=== PATIENT | female | born 1995 | race Caucasian/White ===

== ENCOUNTER → 2022-08-20 | Outpatient (CLI) | payer OTHER, SELFPAY | END | disposition home or self-care (01) | LOC: LABSPEC 16:54 | PROVIDERS: PCP Family Medicine; Referring Provider Obstetrics & Gynecology; Visit Provider Obstetrics & Gynecology | DX: R30.0 Dysuria (principal) | CPT/HCPCS: 87086; 87088 ==

== ENCOUNTER → 2024-02-04 | Outpatient (CLI) | payer OTHER, SELFPAY ==
[2024-02-04 15:10] LABS: Absolute Lymphocyte Count 2.23 X10^3/uL (0.83-4.51); Absolute Neutrophil Count 7.2 X10^3/uL (2.0-7.7); Basophil# 0.04 X10^3/uL; Basophil% 0.4 % (0-1); Eosinophil# 0.39 X10^3/uL; Eosinophils% 3.6 % (0-5); Hemoglobin 14.3 g/dL (12.0-15.0); Lymphocyte # 2.23 X10^3/ul (0.83-4.51); Lymphocyte % 20.6 % (19-41); Mean Corp Hgb Conc 33.3 g/dL (32-36); Mean Corpuscular Hgb 28.8 pg (27.0-32.0); Mean Corpuscular Volume 86.5 fL (81-99); Mean Platelet Vol. 9.2 fl (6.2-12.0); Monocyte# 0.92 X10^3/uL; Monocyte% 8.5 % (0-10); NRBC Flagged by Analyzer 0 % (0-5); Neutrophil # 7.23 X10^3/uL (2.7-7.7); Neutrophil % 66.5 % (47-70); Platelet Count 374 K/mm3 (150-450); RBC Distribution Width CV 12.9 % (11.6-14.6); RBC Distribution Width SD 40.1 fl (35.1-43.9); Red Blood Count 4.97 M/mm3 (4.2-5.4); White Blood Count 10.9 K/mm3 (4.4-11.0)
[2024-02-04 15:56] LABS: HIV - WCH Non-Reactive (Nonreactive); Hepatitis B Surface Antigen Non-Reactive (Nonreactive); Hepatitis C Antibody Non-Reactive (Nonreactive); Rubella IgG Reactive (Nonreactive); Syphilis Antibodies Non-reactive
[2024-02-07 20:08] LABS: Chlamydia By Nucleic Acid AMP Negative (Negative); Gonococcus By Nucleic Acid AMP Negative (Negative)
== END | disposition home or self-care (01) ==
PROVIDERS: PCP Family Medicine; Referring Provider Obstetrics & Gynecology; Visit Provider Obstetrics & Gynecology
DX: Z34.90 Encounter for supervision of normal pregnancy, unspecified, unspecified trimester (principal)
CPT/HCPCS: 36415; 85025; 86703; 86762; 86780; 86803; 86850; 86900; 86901; 87086; 87088; 87340; 87491; 87591

== ENCOUNTER → 2024-06-22 | Outpatient (CLI) | payer OTHER, SELFPAY ==
[2024-06-22 17:04] LABS: Absolute Lymphocyte Count 1.71 X10^3/uL (0.83-4.51); Absolute Neutrophil Count 7.2 X10^3/uL (2.0-7.7); Basophil# 0.03 X10^3/uL; Basophil% 0.3 % (0-1); Eosinophil# 0.14 X10^3/uL; Eosinophils% 1.4 % (0-5); Hematocrit 36.2 % (37-47); Hemoglobin 12.1 g/dL (12.0-15.0); Lymphocyte # 1.71 X10^3/ul (0.83-4.51); Lymphocyte % 17.1 % (19-41); Mean Corp Hgb Conc 33.4 g/dL (32-36); Mean Corpuscular Hgb 29.5 pg (27.0-32.0); Mean Corpuscular Volume 88.3 fL (81-99); Mean Platelet Vol. 9.7 fl (6.2-12.0); Monocyte# 0.87 X10^3/uL; Monocyte% 8.7 % (0-10); NRBC Flagged by Analyzer 0 % (0-5); Neutrophil # 7.19 X10^3/uL (2.7-7.7); Neutrophil % 71.9 % (47-70); Platelet Count 245 K/mm3 (150-450); RBC Distribution Width CV 13.9 % (11.6-14.6); RBC Distribution Width SD 44.8 fl (35.1-43.9)
[2024-06-22 18:40] LABS: Glucose Challenge Gest 1H 50g 116 mg/dL (70-140); HIV Nonreactive (Nonreactive)
[2024-06-22 19:34] LABS: Syphilis Antibodies Nonreactive (Nonreactive)
== END | disposition home or self-care (01) ==
LOC: BWCLAB 13:30
PROVIDERS: PCP Family Medicine; Referring Provider Obstetrics & Gynecology; Visit Provider Obstetrics & Gynecology
DX: Z34.02 Encounter for supervision of normal first pregnancy, second trimester (principal)
CPT/HCPCS: 36415; 82950; 85025; 86703; 86780

== ENCOUNTER → 2024-08-14 | Outpatient (CLI) | payer OTHER, SELFPAY | END | disposition home or self-care (01) | LOC: LABSPEC 16:31 | PROVIDERS: PCP Family Medicine; Referring Provider Obstetrics & Gynecology; Visit Provider Obstetrics & Gynecology | DX: Z34.02 Encounter for supervision of normal first pregnancy, second trimester (principal) | CPT/HCPCS: 87081 ==

== ENCOUNTER → 2024-08-25 | Outpatient (CLI) | payer OTHER, SELFPAY | END | disposition home or self-care (01) | LOC: LABSPEC 15:41 | PROVIDERS: PCP Family Medicine; Referring Provider Obstetrics & Gynecology; Visit Provider Obstetrics & Gynecology | DX: Z12.4 Encounter for screening for malignant neoplasm of cervix (principal); N89.8 Other specified noninflammatory disorders of vagina | CPT/HCPCS: 87070; 87205 ==

== ENCOUNTER 2024-09-07 04:59 | Inpatient (IN) | payer OTHER, SELFPAY ==
[2024-09-07] VITALS (68 sets, daily range): BP systolic 94–138; BP diastolic 51–101; PULSE 72–130; RESP 16–18; TEMP 36.2–39; O2SAT 98–100; BMI 36.1
[2024-09-07 04:32] LABS: ROM Internal Control Test YES-OK TO RESULT pt. (Internal QC)
[2024-09-07 04:33] LABS: ROM Patient Test POSITIVE (Negative)
[2024-09-07 05:27] LABS: Absolute Neutrophil Count 7.2 X10^3/uL (2.0-7.7); Basophil# 0.03 X10^3/uL; Basophil% 0.3 % (0-1); Eosinophil# 0.14 X10^3/uL; Eosinophils% 1.3 % (0-5); Hematocrit 36.4 % (37-47); Lymphocyte % 20.7 % (19-41); Mean Corpuscular Hgb 27.4 pg (27.0-32.0); Mean Corpuscular Volume 83.1 fL (81-99); Mean Platelet Vol. 11.1 fl (6.2-12.0); Monocyte# 0.98 X10^3/uL; Monocyte% 9.2 % (0-10); NRBC Flagged by Analyzer 0 % (0-5); Neutrophil % 67.7 % (47-70); Platelet Count 199 K/mm3 (150-450); RBC Distribution Width CV 14.3 % (11.6-14.6); RBC Distribution Width SD 43.2 fl (35.1-43.9); Red Blood Count 4.38 M/mm3 (4.2-5.4); White Blood Count 10.6 K/mm3 (4.4-11.0)
[2024-09-07 05:51] LABS: Syphilis Antibodies Nonreactive (Nonreactive)
--- NOTE | 2024-09-07 07:01 | HP.PCM.OB_ITS ---
HPI - General General Date of Admission: 09/07/24 HPI Narrative BRANDY WINKLER, is a 29 F who presents with SROM clear fluid irregular ctx no vb good fm pregnacy complicated by velamentous cord insertion Maternal Data Information ALFA Calculator Estimated Delivery Date Method Current WG Current Estimate 09/10/24 LMP (Certain) 39w 4d PFSH PFSH Medical History (Updated 09/07/24 @ 05:35 by Pavithra Waters) Placental abnormality Pilonidal cyst Dysuria Urinary frequency Home Medications ?Medication ?Instructions ?Recorded ?Last Taken ?Type vitamin#30 30 mg iron-10 1 cap PO DAILY pregn elba 01/28/24 09/06/24 History mg iron-folic acid 1 mg-omg3 capsule Allergy/AdvReac Type Severity Reaction Status Date / Time No Known Allergies Allergy Verified 09/07/24 03:50 Surgical History History of appendectomy Social History adopted: No household members: spouse current occupational status: employed 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/hazards: No pets and animals: Yes pets and animals: dog(s) history of recent travel: No sexually active: Yes Smoking Status: Never smoker alcohol intake: never substance use type: does not use well-balanced diet: daily or most days caffeine: Yes Type: coffee eating out: 1-3 times/week during the past year weight has: increased > 10 lbs what type of physical activity do you participate in: walking frequency: 5-6 times per week duration: 30-45 minutes/day seatbelt use: always do you feel safe at home: Yes 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 Elective abortions Hx Para 0 Spontaneous abortions Hx # Term Pregnancies Ectopic pregnancies Hx # Pregnancies Multiple births # of living children Visit Details Expected Delivery Route/Plan Labor Preferences- CB/BF classes: [] labor support person: [] labor intervention preferences: [] pain management options preferred: [] cut cord/dad catch: [] : [] PP control planned: [] discussed possible routes of delivery and associated risks: [] special requests: [] Plans Covid status: [] Flu vaccine: [] Tdap vaccine: Rhogam: [] LARC form signed: [] Problem list reviewed and updated with the most current plan of care details and appropriate orders placed. Relevant counseling for the gestational age provided. Continue routine care and follow up unless otherwise noted in visit notes/problem list details OB Flowsheet Initial Weight: 172 lb Date -?-?-?-?-?-?-?-?-?-?-?-?- EGA Weight BP Urine Prot -?-?-?-?-?-?-?-?-?-?-?-?- Glucose FHR FuHt Pres Dilation -?-?-?-?-?-?-?-?-?-?-?-?- Effaced St Visit Note 02/04/24 -?-?-?-?-?-?-?-?-?-?-?-?- 8w 5d 172 lb (+0 oz) 121/80 -?-?-?-?-?-?-?-?-?-?-?-?- 155 -?-?-?-?-?-?-?-?-?-?-?-?- SM CRL 1.78cm co ns with LMP small 5 mm subchorionic hematoma seen 03/06/24 -?-?-?-?-?-?-?-?-?-?-?-?- 13w 1d 176 lb (+4 lb) 114/73 Negative -?-?-?-?-?-?-?-?-?-?-?-?- Negative 150 -?-?-?-?-?-?-?-?-?-?-?-?- KW- no vb/crampi ng. US ordered 04/06/24 -?-?-?-?-?-?-?-?-?-?-?-?- 17w 4d 178 lb (+6 lb) 112/68 Negative -?-?-?-?-?-?-?-?-?-?-?-?- Negative 151 -?-?-?-?-?-?-?-?-?-?-?-?- MH-No VB. No Flu tters yet. Nausea and fatigue improved. MFM scheduled 04/25/24 -?-?-?-?-?-?-?-?-?-?-?-?- 20w 2d 184 lb 4 oz (+12 lb 4 oz) 112/72 Negative -?-?-?-?-?-?-?-?-?-?-?-?- Negative 152 20 -?-?-?-?-?-?-?-?-?-?-?-?-
--- NOTE | 2024-09-07 07:01 | PCM.HP.OB ---
HPI - General General Date of Admission: 09/07/24 HPI Narrative BRANDY WINKLER, is a 29 F who presents with SROM clear fluid irregular ctx no vb good fm pregnacy complicated by velamentous cord insertion Maternal Data Information ALFA Calculator Estimated Delivery Date Method Current WG Current Estimate 09/10/24 LMP (Certain) 39w 4d PFSH PFSH Medical History (Updated 09/07/24 @ 05:35 by Pavithra Waters) Placental abnormality Pilonidal cyst Dysuria Urinary frequency Home Medications ?Medication ?Instructions ?Recorded ?Last Taken ?Type vitamin#30 30 mg iron-10 1 cap PO DAILY 01/28/24 09/06/24 History mg iron-folic acid 1 mg-omg3 capsule Allergy/AdvReac Type Severity Reaction Status Date / Time No Known Allergies Allergy Verified 09/07/24 03:50 Surgical History History of appendectomy Social History adopted: No household members: spouse current occupational status: employed 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/hazards: No pets and animals: Yes pets and animals: dog(s) history of recent travel: No sexually active: Yes Smoking Status: Never smoker alcohol intake: never substance use type: does not use well-balanced diet: daily or most days caffeine: Yes Type: coffee eating out: 1-3 times/week during the past year weight has: increased > 10 lbs what type of physical activity do you participate in: walking frequency: 5-6 times per week duration: 30-45 minutes/day seatbelt use: always do you feel safe at home: Yes 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 Elective abortions Hx Para 0 Spontaneous abortions Hx # Term Pregnancies Ectopic pregnancies Hx # Pregnancies Multiple births # of living children Visit Details Expected Delivery Route/Plan Labor Preferences- CB/BF classes: [] labor support person: [] labor intervention preferences: [] pain management options preferred: [] cut cord/dad catch: [] : [] PP control planned: [] discussed possible routes of delivery and associated risks: [] special requests: [] Plans Covid status: [] Flu vaccine: [] Tdap vaccine: Rhogam: [] LARC form signed: [] Problem list reviewed and updated with the most current plan of care details and appropriate orders placed. Relevant counseling for the gestational age provided. Continue routine care and follow up unless otherwise noted in visit notes/problem list details OB Flowsheet Initial Weight: 172 lb Date <del>?</del> EGA Weight BP Urine Prot <del>?</del> Glucose FHR FuHt Pres Dilation <del>?</del> Effaced St Visit Note 02/04/24 <del>?</del> 8w 5d 172 lb (+0 oz) 121/80 <del>?</del> 155 <del>?</del> SM CRL 1.78cm cons with LMP small 5 mm subchorionic hematoma seen 03/06/24 <del>?</del> 13w 1d 176 lb (+4 lb) 114/73 Negative <del>?</del> Negative 150 <del>?</del> KW- no vb/cramping. US ordered 04/06/24 <del>?</del> 17w 4d 178 lb (+6 lb) 112/68 Negative <del>?</del> Negative 151 <del>?</del> MH-No VB. No Flutters yet. Nausea and fatigue improved. MFM US scheduled 04/25/24 <del>?</del> 20w 2d 184 lb 4 oz (+12 lb 4 oz) 112/72 Negative <del>?</del> Negative 152 20 <del>?</del> MH-No VB. Good FM. MFM anatomy US today 05/25/24 <del>?</del> 24w 4d 189 lb 8 oz (+17 lb 8 oz) 104/70 Negative <del>?</del> Negative 149 24 <del>?</del> JV- no lof, vaginal bleeding, or cramping. velamentous cord insertion and will do q 4 week ultrasounds 06/21/24 <del>?</del> 28w 3d 197 lb 6 oz (+25 lb 6 oz) 197 lb 6 oz (+25 lb 6 oz) 138/82 <del>?</del> 145 28 <del>?</del> sm- no vb lof good fm no reugalr ctx 07/04/24 <del>?</del> 30w 2d 201 lb (+29 lb) 116/83 Negative <del>?</del> Negative 130 30 <del>?</del> KW- no vb/lof/ctx. good fm. reviewed [facility]. [facility] today. 07/18/24 <del>?</del> 32w 2d 204 lb 9 oz (+32 lb 9 oz) 113/72 Negative <del>?</del> Negative 135 31 <del>?</del> SM- no vb lof good fm no reuglar ctx 08/04/24 <del>?</del> 34w 5d 207 lb 6 oz (+35 lb 6 oz) 109/72 1+ <del>?</del> Negative 140 33 <del>?</del> LC- no vb/ctx/lof. good fm. LC- no vb/ctx/lof. good fm. NST and growths are scheduled. LC- no vb/ctx/lof. good fm. NST and growths are scheduled. PEC reviewed. has not hydrated today. 08/14/24 <del>?</del> 36w 1d 208 lb 8 oz (+36 lb 8 oz) 105/69 1+ <del>?</del> Negative 130 36 <del>?</del> JV- nst reactive. gbs collected. 08/25/24 <del>?</del> 37w 5d 210 lb (+38 lb) 113/74 <del>?</del> 130 37 <del>?</del> SM- no vb lof good fm no regualr ctx SM- no vb lof good fm no regualr ctx co discharge culture sent SM- no vb lof good fm no regualr ctx co odor culture sent co iol by due date 08/31/24 <del>?</del> 38w 4d 212 lb 8 oz (+40 lb 8 oz) 109/74 1+ <del>?</del> Negative 130 38 0.5 <del>?</del> 50 -1 SM- no vb lof good fm n oreuglar ctx discussed and setup IOL for september 09 NST FHR Rate Baby A Baseline: 120 Variability:: Moderate Accelerations:: 15 x 15 Decelerations:: None NST Reactive:: Yes FHR Category:: Category I Uterine Activity:: irregular ROS Constitutional Constitutional: Reports systems reviewed and no addt'l complaints, except as documented Eyes Eyes: Denies change in vision ENT HEENT: Reports systems reviewed and no addt'l complaints, except as documented; Denies headache(s) Cardiovascular Cardiovascular: Reports systems reviewed and no addt'l complaints, except as documented; Denies chest pain or dyspnea Respiratory/Chest Respiratory/Chest: Reports systems reviewed and no addt'l complaints, except as documented Gastrointestinal Gastrointestinal: Reports systems reviewed and no addt'l complaints, except as documented; Denies abdominal pain Genitourinary Genitourinary: Reports systems reviewed and no addt'l complaints, except as documented, contractions Details: present (irregular) and movement Details: present; Denies dysuria or genital lesions Musculoskeletal Musculoskeletal: Reports systems reviewed and no addt'l complaints, except as documented Neurologic Neurologic: Reports systems reviewed and no addt'l complaints, except as documented Endocrine Endocrinology: Reports systems reviewed and no addt'l complaints, except as documented Vital Signs Vital Signs Vital Signs: 09/07/24 03:39 09/07/24 03:39 09/07/24 03:41 Temperature Temperature Source Tympanic Pulse Rate 91 Respiratory Rate Blood Pressure BP Systolic BP Diastolic Pulse Ox 99 09/07/24 03:41 09/07/24 03:41 09/07/24 03:43 Temperature 98.1 F 98.1 F Temperature Source Pulse Rate Respiratory Rate 18 Blood Pressure BP Systolic BP Diastolic Pulse Ox 09/07/24 03:44 09/07/24 03:44 09/07/24 06:41 Temperature 98.1 F Temperature Source Pulse Rate 85 Respiratory Rate Blood Pressure 123/72 H BP Systolic 123 BP Diastolic 72 Pulse Ox 09/07/24 06:43 09/07/24 06:43 Temperature Temperature Source Pulse Rate 94 Respiratory Rate Blood Pressure 111/69 BP Systolic 111 BP Diastolic 69 Pulse Ox Weight Weight: 217 lb Body Mass Index (BMI) 36.1 Physical Exam Const alert, oriented x3, no apparent distress and healthy appearing HEENT normocephalic and moist oral mucous membranes Head and Scalp: atraumatic Neck full ROM, no lymphadenopathy, supple and thyroid normal General: trachea midline Lymph Lymphatic: no lymphadenopathy noted Chest inspection of chest normal Resp normal respiratory effort Cardio regular rate GI soft to palpation and non-tender GI Narrative: gravid Inspection: gravid external exam normal Manual OB Exam: estimated gestational size appropriate, presentation cephalic, dilated, effaced and station Extremity normal to inspection General Extremity: Negative for edema Skin no rashes or lesions noted Neuro no focal motor deficits and deep tendon reflexes 2+ bilaterally Motor Exam: strength 5/5 throughout and clonus absent Psych mental status grossly normal Labs Labs Labs: Blood Type A POSITIVE Antibody Screen NEGATIVE Hct 36.4 % (37-47) L Hgb 12.0 g/dL (12.0-15.0) Pap Smear Negative Syphilis Total Ab Nonreactive (Nonreactive) Rubella IgG Antibody Reactive (Nonreactive) Hep Bs Antigen Non-Reactive (Nonreactive) Hepatitis C Antibody Non-Reactive (Nonreactive) Chlamydia DNA (RIC) Negative (Negative) N.gonorrhoeae DNA (RIC) Negative (Negative) HIV 1&2 Antibody Nonreactive (Nonreactive) Glucose 1 Hr 50 gm 116 mg/dL (70-140) Assessment & Plan (1) : QUALIFIERS: Weeks of gestation: 38 weeks Qualified Code(s): Z3A.38 - 38 weeks gestation of COMMENT: Discussed genetic/carrier testing - declined., nl 36 wk growth (2) Supervision of normal : QUALIFIERS: Normal : normal first Trimester: second trimester Qualified Code(s): Z34.02 - Encounter for supervision of normal first , second trimester COMMENT: PRR, , ALFA 09/10/24, girl name secret : Joesph (3) Velamentous insertion of umbilical cord: COMMENT: Growth US Q4w w/MFM @28w, weekly nsts 36 on delivery 40 weeks little to no traction on cord after delivery. PLAN: Plan admit IAL pitocin PRN epidural PRN
[2024-09-07] MEDS: Lactated Ringers 1,000 ML 999 ML IV (08:59)
[2024-09-07] MEDS: Lactated Ringers 1,000 ML 200 ML IV ×2 (08:59→14:59)
[2024-09-07] MEDS: fentaNYL-bupivacaine (epidural) 100 ML BAG EPIDURAL ×2 (09:54→14:59)
[2024-09-07] MEDS: Oxytocin 15 Units/NS 250ml 15 UNITS/250 ML IV.SOLN 2 UNITS IV (12:38)
[2024-09-07] MEDS: Ondansetron 4 MG/2 ML Vial IV (15:28)
--- NOTE | 2024-09-07 21:55 | OB.VAGDELI_ITS ---
Assessment & Plan (1) Velamentous insertion of umbilical cord: COMMENT: Growth US Q4w w/MFM @28w, weekly nsts 36 on delivery 40 weeks little to no traction on cord after delivery. (2) Supervision of normal : QUALIFIERS: Normal : normal first Trimester: second trimester Qualified Code(s): Z34.02 - Encounter for supervision of normal first , second trimester COMMENT: PRR, , ALFA 09/10/24, girl name secret : Joesph (3) : QUALIFIERS: Weeks of gestation: 38 weeks Qualified Code(s): Z3A.38 - 38 weeks gestation of COMMENT: Discussed genetic/carrier testing - declined., nl 36 wk growth (4) Vaginal delivery: COMMENT: sm IAL 39 girl (5) Chorioamnionitis in third trimester: Maternal Data Information ALFA Calculator Estimated Delivery Date Method Current WG Current Estimate 09/10/24 LMP (Certain) 39w 5d Vaginal Delivery Maternal Presentation Maternal Presentation: see assessment and plan Vaginal Delivery Information Procedure Performed: Spontaneous Vaginal Delivery Surgeon/Practitioner: Mindy Michaels Pre-Procedure Diagnosis: see assessment and plan Post-Procedure Diagnosis: same Type of anesthesia: Epidural Estimated Blood Loss: 300 Findings Description of procedure: Patient began pushing and delivered the head in the JASSI presentation. The head was delivered atraumatically and a loose nuchal cord ?1 was identified and ea sily reduced over the infant's head. The anterior and posterior shoulders delivered without complication followed by the rest of the and the was placed on the maternal abdomen. Delayed cord clamping was employed for approximately 60 seconds. Cord was clamped and cut and gentle traction was applied to the cord and the placenta delivered spontaneously immediately following it was noted to be intact with three-vessel cord. The perineum and vagina were inspected and was noted to have a first -degree laceration that was repaired in the usual fashion with 3-0 vicryl rapide . EBL was 300. Patient and infant tolerated delivery well. 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
--- NOTE | 2024-09-07 21:56 | DCINST_ITS ---
Discharge Instructions Diet Discharge Diet: No restrictions DC O2, CPAP, BIPAP needs Home O2 Discharge instructions: No Dressing / Incision Discharge Activity: Return to Normal Activity, May Not Drive (while taking narcotic pain medications.) and May Shower May resume sexual activity in: 4-6 weeks Dressing / Incision Call your doctor if your incision/area has: Continuous Slow Oozing, Sudden Increased Bleeding, Increased Pain/ Swelling, Increased Redness and Foul Smelling Discharge Follow Up Care Please Follow Up With: Mindy Michaels MD When: Call [phone] to make an appointment with your doctor in 6 weeks. If you had elevated blood pressure or 4th degree laceration, you will need to be seen in 2 weeks. Test Results: Test results from this visit will be discussed in further detail at your follow- up appointment, if applicable. Discharge Plan Admission Admit Date/Time: 09/07/24 04:59 Attending Provider: Mindy Michaels Primary Care Provider: Jake Avila Discharge Orders/Prescriptions Prescriptions: No Action PNV #[id number] 30 mg iron-10 mg iron-1 mg capsule 1 cap PO DAILY Referrals / Follow Up: Jake Avila DO [Primary Care Provider] -
[2024-09-07] MEDS: Gentamicin IV 290 MG in Dextrose 5%-Water (50mL Bag) 50 ML 100 MG IV (23:08)
[2024-09-07] MEDS: Acetaminophen 500 MG Tablet PO (23:25)
[2024-09-07] MEDS: Ampicillin 2 GM in 0.9% Normal Saline (100mL MB+) 100 ML IV (23:26)
[2024-09-08] VITALS (44 sets, daily range): BP systolic 105–136; BP diastolic 52–93; PULSE 63–125; RESP 16; TEMP 36–38.7; O2SAT 96–99
[2024-09-08] MEDS: Oxytocin 15 Units/NS 250ml 15 UNITS/250 ML IV.SOLN 83 UNITS IV (00:30)
[2024-09-08] MEDS: Naproxen 500 MG Tablet PO ×3 (01:42→20:01)
[2024-09-08] MEDS: AMPICILLIN IV (04:33)
[2024-09-08] MEDS: NORMAL SALINE 0.9% IV (04:33)
[2024-09-08] MEDS: Acetaminophen 500 MG Tablet 1000 MG PO (05:10)
[2024-09-08] MEDS: 0.9% Saline Lock 10 ML Syringe IV (05:13)
--- NOTE | 2024-09-08 06:06 | NURSING ---
RN at bedside, assisted patient to bathroom since its been 6 hours since delivery. Patient due to void, unable at this time. Patient attempted for 10 mins, blew through straw and ran water. Patient refusing straight cath at this time, requesting more time. RN stated to try again in 30minutes to an hour to try again and reassess
[2024-09-08] MEDS: Senna/Docusate Sodium 1 Tablet PO (17:39)
[2024-09-09 00:20] VITALS: BP 108/80; PULSE 96; RESP 16; TEMP 36.6; O2SAT 98
[2024-09-09 10:12] VITALS: BP 121/75; PULSE 110; RESP 18; TEMP 36.5; O2SAT 98
--- NOTE | 2024-09-09 10:22 | PCM.PN.OB ---
Subjective Subjective Patient doing well without complaints. Tolerating PO. Ambulating and voiding without difficulty. feeding well. Denies chest pain, shortness of breath, calf pain/swelling, fevers, chills, lightheadedness. Objective Data Objective Data Vital Signs: Vital Signs Temp Pulse Resp BP Pulse Ox O2 Del Method 97.7 F L 110 H 18 121/75 H 98 Room Air 09/09/24 10:12 09/09/24 10:12 09/09/24 10:12 09/09/24 10:12 09/09/24 10:12 09/09/24 10:12 Oxygen Delivery Method Room Air Weight: 217 lb Body Mass Index (BMI) 36.1 Intake & Output: Intake and Output for Last 24 Hours 09/07/24 09/08/24 09/09/24 23:59 23:59 23:59 Intake Total 3192.87 / 3192.87 507.13 / 507.13 Output Total 500 / 500 1100 / 1100 Balance 2692.87 / 2692.87 -592.87 / -592.87 Lab / Micro Data 09/07/24 05:15 ROS Constitutional Constitutional: Reports systems reviewed and no addt'l complaints, except as documented Cardiovascular Cardiovascular: Reports systems reviewed and no addt'l complaints, except as documented Respiratory/Chest Respiratory/Chest: Reports systems reviewed and no addt'l complaints, except as documented Gastrointestinal Gastrointestinal: Reports systems reviewed and no addt'l complaints, except as documented Physical Exam Const alert, oriented x3 and no apparent distress HEENT Head and Scalp: atraumatic Resp normal respiratory effort GI soft to palpation and non-tender Bimanual Exam - Vag & Uterus: uterus non-tender Uterus Palpation: uterus fundus firm (below Umbilicus) Assessment & Plan (1) Chorioamnionitis in third trimester: (2) Vaginal delivery: COMMENT: sm IAL 39 girl PLAN: Plan s/p PPD # 2 1. routine post delivery care 2. breast feeding- support given 3. rh positive 4. rubella immune
[2024-09-09] MEDS: Naproxen 500 MG Tablet PO (10:55)
[2024-09-09 12:54] VITALS: BP 107/67; PULSE 92; RESP 16; TEMP 36.7; O2SAT 98
[2024-09-09 16:51] VITALS: BP 116/87; PULSE 120; RESP 16; TEMP 36.8; O2SAT 97
--- NOTE | 2024-09-13 17:25 | NURSING ---
Here for consult on 09/11/2024, follow up phone call questions asked. Patient denies any headaches, visual changes, flu like symptoms or baby blues. States her bleeding is minimal. Patient is taking Tylenol as needed for discomfort. Patients milk is starting to come in and is pumping and feeding infant.Denies any questions or concerns at this time.
== END 2024-09-09 17:20 | disposition home or self-care (01) | DRG 807 ==
LOC: WP 05:08
PROVIDERS: Obstetrics & Gynecology; Admitting Provider Obstetrics & Gynecology; PCP Family Medicine; Referring Provider Obstetrics & Gynecology; Visit Provider Obstetrics & Gynecology
DX: O41.1230 Chorioamnionitis, third trimester, not applicable or unspecified (principal); Z37.0 Single live birth; O43.123 Velamentous insertion of umbilical cord, third trimester; O70.0 First degree perineal laceration during delivery; O69.81X0 Labor and delivery complicated by cord around neck, without compression, not applicable or unspecified; Z3A.40 40 weeks gestation of pregnancy
CPT/HCPCS: 59025; 59050; 84112; 85025; 86780; 86850; 86900; 86901; 99221; A4216; G0378; J2405

== ENCOUNTER → 2024-10-26 | Outpatient (CLI) | payer OTHER, SELFPAY ==
--- OUTSIDE RECORDS SUMMARY | 2024-10-26 20:47 | XMS RPT_ITS | CCD ---
Author Organization [facility] Care Team Providers Care Claims Examiner Name Role Phone [facility] Admitting Unavaila ble SARA, [facility] Attending Unavaila ble SARA, [facility] Primary Care Unavaila ble MARGARITA, TACHO A Consulting Unavailable PROVIDER, UNKNOWN Consulting Unavailable SARA, [facility] Admitting Unavaila ble SARA, [facility] Attending Unavaila ble SARA, [facility] Primary Care Unavaila ble MARGARITA, TACHO A Consulting Unavailable PROVIDER, UNKNOWN Consulting Unavailable Dr. Tacho Avila DO Primary Care Provider [phone] Dr. Tacho Avila DO Referring Provider [phone] Ayana Valencia CNM Attending Provider [phone] Geovanni Riddle Attending Provider Dr. Joann Tang DO Attending Provider Dr. Mindy Michaels MD Attending Provider Dr. Joann Tang DO Referring Provider Dr. Tacho Avila DO Primary Care Provider [phone] Dr. Tacho Avila DO Referring Provider [phone] Geovanni Riddle Attending Provider [phone] Ayana Valencia CNM Attending Provider [phone] Rani Ridley CNM Attending Provider AYANA VALENCIA Attending Unavailable AYANA VALENCIA Referring Unavailable MARYAM EMMANUEL Attending Unavailable TACHO AVILA Primary Care Unavailable GEOVANNI GALE Referring Unavailable TACHO AVILA Primary Care Unavailable ELINA EPPS Attending Unavailable BALJINDER, GEOVANNI S Referring Unavailable MARGARITA, TACHO A Primary Care Unavailable BALJINDER, GEOVANNI S Referring Unavailable MARYAM EMMANUEL Attending Unavailable Margarita MCCLURE, Dr. Joseph Primary Care Provider Margarita MCCLURE, Dr. Joseph Referring Provider Xenia RODRIGUEZ, Dr. Guillen Referring Provider Xenia RODRIGUEZ, Dr. Guillen Admit Provider [phone] Vandmarianne Atkins DO, Dr. David Admit Provider [phone] Joel Atkins DO, Dr. David Other Provider [phone] Xenia RODRIGUEZ, Dr. Guillen Other Provider [phone] Margarita, Tacho Primary Care Unavailable Vande Velde, Joann Consulting Unavailabl e Vande Velde, Joann Admitting Unavailabl e Vande Velde, Joann Referring Unavailabl e Marcanthony, Mindy Attending Unavailable Marcanthony, Mindy Consulting Unavailable Marcanthony, Mindy Admitting Unavailable Marcanthony, Mindy Referring Unavailable Marcanthony, Mindy Attending Unavailable Marcanthony, Mindy Admitting Unavailable Marcanthony, Mindy Referring Unavailable Margarita, Tacho Primary Care Unavailable Margarita, Tacho Primary Care Unavailable Margarita, Tacho Referring Unavailable Vande Velde, Joann Attending Unavailabl e Margarita, Tacho Primary Care Unavailable Margarita, Tacho Referring Unavailable Marcanthony, Mindy Attending Unavailable Margarita, Tacho Primary Care Unavailable Margarita, Tacho Referring Unavailable Baljinder COMMUNITY RECREATION PROGRAMMER, Geovanni Attending Unavailable Vande Velde, Joann Referring Unavailabl e Vande Velde, Joann Attending Unavailabl e Margarita, Tacho Primary Care Unavailable Margarita, Tacho Primary Care Unavailable Marcanthony, Mindy Attending Unavailable Marcanthony, Mindy Referring Unavailable Margarita, Tacho Primary Care Unavailable Marcanthony, Mindy Admitting Unavailable Marcanthony, Mindy Referring Unavailable Marcanthony, Mindy Attending Unavailable Vande Velde, Joann Attending Unavailabl e Vande Velde, Joann Referring Unavailabl e Margarita, Tacho Primary Care Unavailable Margarita, Tacho Primary Care Unavailable Marcanthony, Mindy Attending Unavailable Marcanthony, Mindy Referring Unavailable Margarita, Tacho Referring Unavailable Joann Tang Attending Unavailabl e Margarita, Tacho Primary Care Unavailable Margarita, Tacho Primary Care Unavailable Margarita, Tacho Referring Unavailable Baljinder COMMUNITY RECREATION PROGRAMMER, Geovanni Attending Unavailable Rani Ridley Attending Unavailable Margarita, Tacho Primary Care Unavailable Margarita, Tacho Referring Unavailable Joann Tang Attending Unavailabl e Margarita, Tacho Primary Care Unavailable Margarita, Tacho Referring Unavailable Margarita, Tacho Primary Care Unavailable Margarita, Tacho Referring Unavailable Steve, Ayana Attending Unavailable Margarita, Tacho Referring Unavailable Margarita, Tacho Primary Care Unavailable Xenia, Mindy Attending Unavailable Margarita, Tacho Primary Care Unavailable Margarita, Tacho Referring Unavailable Steve, Ayana Attending Unavailable Margarita, Tacho Primary Care Unavailable Margarita, Tacho Referring Unavailable Xenia, Mindy Attending Unavailable Xenia, Mindy Attending Unavailable Margarita, Tacho Referring Unavailable Margarita, Tacho Primary Care Unavailable Margarita, Tacho Primary Care Unavailable Radha Vee Attending Unavailable Margarita, Tacho Primary Care Unavailable Margarita, Tacho Referring Unavailable Xenia, Mindy Attending Unavailable Dr. Tacho Avila DO Primary Care Provider [phone] Dr. Tacho Avila DO Referring Provider Dr. Mindy Michaels MD Attending Provider Dr. Joann Tang DO Attending Provider Joel Atkins DO, Dr. David Referring Provider Medications Current Medications Medication Drug Class(es) Dates Sig (Normalized) Sig (Original) Pnv #25-Vycw-Ddhnc Acid-Omega3 30 mg iron-10 mg iron-1 mg capsule (6 sources) Start: 01-28-2024 Pnv #32-Hgfs-Oohbt Acid-Omega3 30 mg iron-10 mg iron-1 mg capsule Active 1 NMA PO DAILY January 28, 2024 12:00am Start: 01-28-2024 Pnv #30-Iron-F olic Acid-Omega3 30 mg iron-10 mg iron-1 mg capsule Active 1 NMA PO DAILY January 28, 2024 12:00am Start: 01-28-2024 Pnv #30-Iron-F olic Acid-Omega3 30 mg iron-10 mg iron-1 mg capsule Active NMA PO January 28, 2024 12:00am Completed/Discontinued Medications Medication Drug Class(es) Dates Sig (Normalized) Sig (Original) naproxen 500 mg oral tablet (18 sources) Nonsteroidal Anti-inflammatory Drug Start: 10-21-2021 End: 01-28-2024 take 1 tablet by mouth twice daily as needed for pain Naproxen 500 mg tablet Discontinued 500 mg PO TWICE A DAY as needed for pain 30 2 September 08, 2023 7:59am January 28, 2024 3:11pm Segmental and somatic dysfunction of thoracic region administer with food or milk Problems Active Problems Problem Classification Problem Date Documented Da te Episodic/Chronic Genitourinary symptoms and ill-defined conditions (12 sources) Increased frequency of urination; Translations: [Frequency of micturition] 01-28-2024 Episodic Comment on above: ua and culture, if n egative culture recommend urogyn consult Mood disorders (6 sources) Premenstrual dysphoric disorder; Translations: [Premenstrual dysphoric disorder] 02-04-2024 Chronic Comment on above: supportive therapy, naproxen, offered OCP and SSRI when desired. Other and delivery including normal (20 sources) Normal ; Translations: [Encounter for supervision of normal , unspecified, unspecified trimester] Onset: 03-06-2024 06-21-2024 Episodic Comment on above: PRR, , ALFA 09/10, girl name secret : Joesph Discussed genetic/ca rrier testing - declined. Discussed genetic/ca rrier testing - declined., nl 36 wk growth sm IAL 39 girl Other screening for suspected conditions (not mental disorders or infectious disease) (1 source) Encounter for screening for malignant neoplasm of cervix; Translations: [Encounter for screening for malignant neoplasm of cervix] Onset: 08-30-2024 Episodic Polyhydramnios and other problems of amniotic cavity (5 sources) Chorioamnionitis; Translations: [Chorioamnionitis, third trimester, not applicable or unspecified] Onset: 09-19-2024 09-08-2024 Episodic Residual codes; unclassified (1 source) 38 weeks gestation of ; Translations: [38 weeks gestation of ] Onset: 09-19-2024 Episodic Skin and subcutaneous tissue infections (6 sources) Pilonidal cyst; Translations: [Pilonidal cyst without abscess] 01-28-2024 Episodic Comment on above: gen surgery consult Umbilical cord complication (20 sources) Velamentous insertion of umbilical cord; Translations: [Velamentous insertion of umbilical cord, unspecified trimester] Onset: 08-31-2024 04-26-2024 Episodic Comment on above: Growth US Q4w w/MFM @28w Growth US Q4w w/MFM @28w, weekly nsts 36 ondelivery 40 weekslittle to no traction on cord after delivery. Past or Other Problems Problem Classification Problem Date Documented Da te Episodic/Chronic Residual codes; unclassified (1 source) 32 weeks gestation of ; Translations: [32 weeks gestation of ] Onset: 07-18-2024 Episodic Residual codes; unclassified (1 source) 28 weeks gestation of ; Translations: [28 weeks gestation of ] Onset: 06-21-2024 Episodic Residual codes; unclassified (1 source) 13 weeks gestation of ; Translations: [13 weeks gestation of ] Onset: 03-06-2024 Episodic Residual codes; unclassified (1 source) 8 weeks gestation of ; Translations: [8 weeks gestation of ] Onset: 02-04-2024 Episodic Results Test Name Value Interpretation Reference Range Facility (ROM) Rupture Of Membraneson 09-07-2024 ROM Positive Abnormal Negative [facility] Comment on above: Result Comment: Amni otic fluid present indicates rupture of Membranes. RESULTS CALLED TO SARAI WATERS 09/07/24 0432 Jairon Padgett. REPORT READ BACK BY SAME . Performed By: #### L 205.1000 ####[facility] [address] [place], [place], [id number] Absolute lymphocyte countOrd ered By: Joann Atkins on 09-07-2024 Lymphocytes Auto (Unsp spec) [#/Vol] 2.20 10*3/uL 0.83-4.51 [facility] Absolute neutrophil countOrd ered By: Joann Atkins on 09-07-2024 Neutrophils (Bld) [#/Vol] 7.2 10*3/uL 2.0-7.7 [facility] Automated lymphocyte count a s percentage of total leukocytesOrdered By: Joann Atkins on 09-07-2024 Lymphocytes/100 WBC Auto (Unsp spec) 20.7 % 19-41 [facility] Basophil percentageOrdered B y: Joann Atkins on 09-07-2024 Basophils/100 WBC (Bld) 0.3 % 0-1 [facility] CBC W/Diff, Automatedon 08-11 Absolute Lymph 2.20 X10 3/uL Normal 0.83-4.51 [facility] Comment on above: Performed By: #### L 100.0100, BTS ####[facility] [address] [place], [address] Absolute Neut 7.2 X10 3/uL Normal 2.0-7.7 [facility] Comment on above: Performed By: #### L 100.0100, BTS ####[facility] [address] [place], [address] Basophils/100 WBC (Bld) 0.3 % Normal 0-1 [facility] Comment on above: Performed By: #### L 100.0100, BTS ####[facility] [address] [place], [address] Eosinophils/100 WBC (Bld) 1.3 % Normal 0-5 [facility] Comment on above: Performed By: #### L 100.0100, BTS ####[facility] [address] [place], [address] Erythrocyte distribution width (RBC) [Ratio] 14.3 % Normal 11.6-14.6 [facility] Comment on above: Performed By: #### L 100.0100, BTS ####[facility] [address] [place], [address] Hematocrit (Bld) [Volume fraction] 36.4 % Low 37-47 [facility] Comment on above: Performed By: #### L 100.0100, BTS ####[facility] [address] [place], [address] Hemoglobin (Bld) [Mass/Vol] 12.0 g/dL Normal 12.0-15.0 [facility] Comment on above: Performed By: #### L 100.0100, BTS ####[facility] [address] [place], [address] IG% 0.800 Normal 0.0-0.9 [facility] Comment on above: Result Comment: IG% - Immature Granulocytes (promyelocytes, myelocytes and metamyelocytes) > 1% indicates that a LEFT SHIFT is Present. Performed By: #### L 100.0100, BTS ####[facility] [address] [place], [address] Lymphocytes/100 WBC (Bld) 20.7 % Normal 19-41 [facility] Comment on above: Performed By: #### L 100.0100, BTS ####[facility] [address] [place], [address] MCH (RBC) [Entitic mass] 27.4 pg Normal 27.0-32.0 [facility] Comment on above: Performed By: #### L 100.0100, BTS ####[facility] [address] [place], [address] MCHC (RBC) [Mass/Vol] 33.0 g/dL Normal 32-36 [facility] Comment on above: Performed By: #### L 100.0100, BTS ####[facility] [address] [place], [address] MCV (RBC) [Entitic vol] 83.1 fL Normal 81-99 [facility] Comment on above: Performed By: #### L 100.0100, BTS ####[facility] [address] [place], [address] Monocytes/100 WBC (Bld) 9.2 % Normal 0-10 [facility] Comment on above: Performed By: #### L 100.0100, BTS ####[facility] [address] [place], [address] Neutrophils/100 WBC (Bld) 67.7 % Normal 47-70 [facility] Comment on above: Performed By: #### L 100.0100, BTS ####[facility] [address] [place], [address] Nucleated RBC (Bld) [#/Vol] 0 10*3/uL Normal 0-5 [facility] Comment on above: Performed By: #### L 100.0100, BTS ####[facility] [address] [place], [address] Platelet mean volume (Bld) [Entitic vol] 11.1 fL Normal 6.2-12.0 [facility] Comment on above: Performed By: #### L 100.0100, BTS ####[facility] [address] [place], [address] Platelets (Bld) [#/Vol] 199 10*3/uL Normal 150-450 [facility] Comment on above: Performed By: #### L 100.0100, BTS ####[facility] [address] [place], [address] RBC (Bld) [#/Vol] 4.38 10*6/uL Normal 4.2-5.4 [facility] Comment on above: Performed By: #### L 100.0100, BTS ####[facility] [address] [place], [address] RDW SD 43.2 fl Normal 35.1-43.9 [facility] Comment on above: Performed By: #### L 100.0100, BTS ####[facility] [address] [place], [address] WBC (Bld) [#/Vol] 10.6 10*3/uL Normal 4.4-11.0 [facility] Comment on above: Performed By: #### L 100.0100, BTS ####[facility] [address] [place], [address] Discharge Instructionon 08-11 Discharge Instruction [facility] Medical Records Department [address] [place] [address] Instructions for Home/Discharge Instructions 09/07/24 2156 MR#: [id number] Acct: [id number] Name: BRANDY WINKLER Rep #: [id number] : 1995 29 From: Mindy Michaels MD PCP: Dr. Tacho Avila DO Status:ADM IN Discharge Instructions Diet Discharge Diet: No restrictions DC O2, CPAP, BIPAP needs Home O2 Discharge instructions: No Dressing / Incision Discharge Activity: Return to Normal Activity, May Not Drive (while taking narcotic pain medications.) and May Shower May resume sexual activity in: 4-6 weeks Dressing / Incision Call your doctor if your incision/area has: Continuous Slow Oozing, Sudden Increased Bleeding, Increased Pain/ Swelling, Increased Redness and Foul Smelling Discharge Follow Up Care Please Follow Up With: Mindy Michaels MD When: Call [phone] to make an appointment with your doctor in 6 weeks. If you had elevated blood pressure or 4th degree laceration, you will need to be seen in 2 weeks. Test Results: Test results from this visit will be discussed in further detail at your follow-up appointment, if applicable. Discharge Plan Admission Admit Date/Time: 09/07/24 04:59 Attending Provider: Mindy Michaels Primary Care Provider: Tacho Avila Discharge Orders/Prescriptions Prescriptions: No Action PNV #04-drti-neoih acid-omega3 30 mg iron-10 mg iron-1 mg capsule 1 cap PO DAILY Referrals / Follow Up: Tacho Avila DO [Primary Care Provider] - 09/08/24 0012 Mindy Michaels MD CC: Dr. 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 Tacho Avila, DO Status:ADM IN [id number] - [facility] General Date of Admission: 09/07/24 HPI Narrative BRANDY WINKLER, is a 29 F who presents with SROM clear fluid irregular ctx no vb good fm pregnacy complicated by velamentous cord insertion Maternal Data Information ALFA Calculator Estimated Delivery Date Method Current WG Current Estimate 09/10/24 LMP (Certain) 39w 4d PFSH PFSH Medical History (Updated 09/07/24 @ 05:35 by Pavithra Waters) Placental abnormality Pilonidal cyst Dysuria Urinary frequency Home Medications ???Medication ???Instructions ???Recorded ???Last Taken ???Type vitamin#30 30 mg iron-10 1 cap PO DAILY 01/28/24 09/06/24 History mg iron-folic acid 1 mg-omg3 capsule Allergy/AdvReac Type Severity Reaction Status Date / Time No Known Allergies Allergy Verified 09/07/24 03:50 Surgical History History of appendectomy Social History adopted: No household members: spouse current occupational status: 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: No pets and animals: Yes pets and animals: dog(s) history of recent travel: No sexually active: Yes Smoking Status: Never smoker alcohol intake: never substance use type: does not use well-balanced diet: daily or most days caffeine: Yes Type: coffee eating out: 1-3 times/week during the past year weight has: increased > 10 lbs what type of physical activity do you participate in: walking frequency: 5-6 times per week duration: 30-45 minutes/day seatbelt use: always do you feel safe at home: Yes 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 Elective abortions Hx Para 0 Spontaneous abortions Hx # Term Pregnancies Ectopic pregnancies Hx # Pregnancies Multiple births # of living children Visit Details Expected Delivery Route/Plan Labor Preferences- CB/BF classes: [] labor support person: [] labor intervention preferences: [] pain management options preferred: [] cut cord/dad catch: [] : [] PP control planned: [] discussed possible routes of delivery and associated risks: [] special requests: [] Plans Covid status: [] Flu vaccine: [] Tdap vaccine: Rhogam: [] LARC form signed: [] Problem list reviewed and updated with the most current plan of care details and appropriate orders placed. Relevant counseling for the gestational age provided. Continue routine care and follow up unless otherwise noted in visit notes/problem list details OB Flowsheet Initial Weight: 172 lb Date -???-???-???-???-???- ???-???-???-???-???-? ??-???- EGA Weight BP Urine Prot -???-???-???-???-???- ???-???-???-???-???-? ??-???- Glucose FHR FuHt Pres Dilation -???-???-???-???-???- ???-???-???-???-???-? ??-???- Effaced St Visit Note 02/04/24 -???-???-???-???-???- ???-???-???-???-???-? ??-???- 8w 5d 172 lb (+0 oz) 121/80 -???-???-???-???-???- ???-???-???-???-???-? ??-???- 155 -???-???-???-???-???- ???-???-???-???-???-? ??-???- SM CRL 1.78c m cons with LMP small 5 mm subchorionic hematoma seen 03/06/24 -???-???-???-???-???- ???-???-???-???-???-? ??-???- 13w 1d 176 lb (+4 lb) 114/73 Negative -???-???-???-???-???- ???-???-???-???-???-? ??-???- Negative 150 -???-???-???-???-???- ???-???-???-???-???-? ??-???- KW- no vb/cr amping. US ordered 04/06/24 -???-???-???-???-???- ???-???-???-???-???-? ??-???- 17w 4d 178 lb (+6 lb) 112/68 Negative -???-???-???-???-???- ???-???-???-???-???-? ??-???- Negative 151 -???-???-???-???-???- ???-???-???-???-???-? ??-???- -No VB. No Flutters yet. Nausea and fatigue improved. MFM US scheduled 04/25/24 -???-???-???-???-???- ???-???-???-???-???-? ??-???- 20w 2d 184 lb 4 oz (+12 lb 4 oz) 112/72 Negative -???-???-???-???-???- ???-???-???-???-???-? ??-???- Negative 152 20 -???-???-???-???-???- ???-???-???-???-???-? ??-???- -No VB. G ood FM. MFM anatomy US today 05/25/24 -???-???-???-???-???- ???-???-???-???-???-? ??-???- 24w 4d 189 lb 8 oz (+17 lb 8 oz) 104/70 Negative -???-???-???-???-???- ???-???-???-???-???-? ??-???- Negative 149 24 -???-???-???-???-???- ???-???-???-???-???-? ??-???- JV- no lof, vaginal bleeding, or cramping. velamentous cord insertion and will do q 4 week ultrasounds 06/21/24 -???-???-???-???-???- ???-???-???-???-???-? ??-???- 28w 3d 197 lb 6 oz (+25 lb 6 (more content not included)... Normal [facility] Hematocrit Auto (Bld) [Volum e fraction]Ordered By: Joann Atkins on 09-07-2024 Hematocrit (Bld) [Volume fraction] 36.4 % Low 37-47 [facility] Hemoglobin measurementOrdere d By: Joann Atkins on 09-07-2024 Hemoglobin (Bld) [Mass/Vol] 12.0 g/dL 12.0-15.0 [facility] Immature granulocytes/100 WB C Auto (Bld)Ordered By: Joann Atkins on 09-07-2024 Immature granulocytes/100 WBC (Bld) 0.800 % 0.0-0.9 [facility] Comment on above: IG% - Immature Granu locytes (promyelocytes, myelocytes and metamyelocytes) > 1% indicates that a LEFT SHIFT is Present. MCV (mean corpuscular volume ) determinationOrdered By: Joann Atkins on 09-07-2024 MCV (RBC) [Entitic vol] 83.1 fL 81-99 [facility] Medical Records Department [address] [place] [address] OB Vaginal Delivery 09/07/242154 MR#: [id number] Acct: [id number] Name: BRANDY WINKLER Rep #: [id number] : 1995 29 From: Mindy iMchaels MD PCP: Dr. Tacho Avila, DO Status:ADM IN Location: [id number] Assessment Plan (1) Velamentous insertion of umbilical cord: COMMENT: Growth US Q4w w/MFM @28w, weekly nsts 36 on delivery 40 weeks little to no traction on cord after delivery. (2) Supervision of normal : QUALIFIERS: Normal : normal first Trimester: second trimester Qualified Code(s): Z34.02 - Encounter for supervision of normal first , second trimester COMMENT: PRR, , ALFA 09/10/24, girl name secret : Joesph (3) : QUALIFIERS: Weeks of gestation: 38 weeks Qualified Code(s): Z3A.38 - 38 weeks gestation of COMMENT: Discussed genetic/carrier testing - declined., nl 36 wk growth (4) Vaginal delivery: COMMENT: sm IAL 39 girl (5) Chorioamnionitis in third trimester: Maternal Data Information ALFA Calculator Estimated Delivery Date Method Current WG Current Estimate 09/10/24 LMP (Certain) 39w 5d Vaginal Delivery Maternal Presentation Maternal Presentation: see assessment and plan Vaginal Delivery Information Procedure Performed: Spontaneous Vaginal Delivery Surgeon/Practitioner: Mindy Michaels Pre-Procedure Diagnosis: see assessment and plan Post-Procedure Diagnosis: same Type of anesthesia: Epidural Estimated Blood Loss: 300 Findings Description of procedure: Patient began pushing and delivered the head in the JASSI presentation. The head was delivered atraumatically and a loose nuchal cord ???1 was identified and easily reduced over the 's head. The anterior and posterior shoulders delivered without complication followed by the rest of the and the was placed on the maternal abdomen. Delayed cord clamping was employed for approximately 60 seconds. Cord was clamped and cut and gentle traction was applied to the cord and the placenta delivered spontaneously immediately following it was noted to be intact with three- vessel cord. The perineum and vagina were inspected and was noted to have a first -degree laceration that was repaired in the usual fashion with 3-0 vicryl rapide . EBL was 300. Patient and infant tolerated delivery well. Presentation: Vertex Placental Delivery Description: Spontaneous Specimen collected: Yes Description of specimen(s) removed: placenta Hoist Mechanic pearl glue operator: No Post Vaginal Deli Medications given after delivery: Other (pitocin) Complication Complications: No Multi Select Codes Urinary/Genital Urinary/Genital CPT Codes: 07826 Vaginal Delivery [facility] 09/08/24 0012 Cosigner Signature (if applicable): CC: Dr. Tacho Avila DO; Dr. Mindy Michaels MD Signed Normal [facility] Mean corpuscular hemoglobin (MCH) determinationOrdered By: Joann Atkins on 09-07-2024 MCH (RBC) [Entitic mass] 27.4 pg 27.0-32.0 [facility] Mean corpuscular hemoglobin concentration (MCHC) determinationOrdered By: Joann Atkins on 09-07-2024 MCHC (RBC) [Mass/Vol] 33.0 g/dL 32-36 [facility] Mean platelet volume determi nationOrdered By: Joann Atkins on 09-07-2024 Platelet mean volume (Bld) [Entitic vol] 11.1 fL 6.2-12.0 [facility] Monocyte percentageOrdered B y: Joann Atkisn on 09-07-2024 Monocytes/100 WBC (Bld) 9.2 % 0-10 [facility] Neutrophil percentageOrdered By: Joann Atkins on 09-07-2024 Neutrophils/100 WBC (Bld) 67.7 % 47-70 [facility] Nucleated red blood cell per centageOrdered By: Joann Atkins on 09-07-2024 Nucleated RBC/100 WBC (Bld) [Ratio] 0 % 0-5 [facility] Platelet countOrdered By: Rangel Atkins on 09-07-2024 Platelets (Bld) [#/Vol] 199 10*3/uL 150-450 [facility] RBC Auto (Bld) [#/Vol]Ordere d By: Joann Atkins on 09-07-2024 RBC (Bld) [#/Vol] 4.38 10*6/uL 4.2-5.4 [facility] Syphilis Antibodieson 2024 Syphilis Abs Non-Reactive Normal Nonreactive [facility] Comment on above: Performed By: #### L 509.8002 ####[facility] [id number] [place], [address] Type AND Screenon 09-07-2024 ABO and Rh group Nom (Bld) Blood group A Rh(D) positive Normal [facility] Comment on above: Order Comment: Labor Performed By: #### L 100.0100, BTS ####[facility] [address] [place], [address] White blood cell (WBC) count Ordered By: Joann Atkins on 09-07-2024 WBC (Bld) [#/Vol] 10.6 10*3/uL 4.4-11.0 [facility] Laboratory - Chemistry and C hemistry - challengeOrdered By: Mindy Mitchpiter on 08-31-2024 Glucose Ql (U) Negative [facility] Laboratory - UrinalysisOrder ed By: Mindy Michaels on 08-31-2024 Protein Ql (U) 1+ [facility] Delivery Mgr Office Visit Reporton 08-31-2024 Delivery Mgr Office Visit Report [facility]'s [address], [address] [place] [address] OFFICE VISIT Date of Service: 08/31/24 MR#: [id number] Acct: [id number] Name: BRANDY WINKLER Rep #: [id number] : 1995 Provider: Dr. Mindy llanos MD Age/Sex: 29/F Location: [facility] Status: Signed Intake Vital Signs 04/06/24 15:46 07/18/24 14:34 08/14/24 13:59 08/25/24 14:39 08/31/24 09:19 08/31/24 09:19 Height 5 ft 5 in 5 ft 5 in 5 ft 5 in 5 ft 5 in 5 ft 5 in 5 ft 5 in Weight: 210 lb 212 lb 8 oz BMI 34.9 35.3 BP 113/74 109/74 Intake Visit Reasons: 38 wk ob/NST Direct Care Provider Required: No Is patient in pain?: No Allergies No Known Allergies Allergy (Verified 08/31/24 09:18) Medications ???Medication ???Instructions ???Recorded ???Confirmed ???Type vitamin#30 30 mg iron-10 cap PO 01/28/24 08/31/24 History mg iron-folic acid 1 mg-omg3 capsule Last Menstrual Period: 12/05/23 Zika: Zika virus screening: Negative : No PFSH PFSH Medical History Pilonidal cyst Urinary frequency Dysuria Surgical History History of appendectomy Social History adopted: No household members: spouse current occupational status: 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: No pets and animals: Yes pets and animals: dog(s) history of recent travel: No sexually active: Yes Smoking Status: Never smoker alcohol intake: never substance use type: does not use well-balanced diet: daily or most days caffeine: Yes Type: coffee eating out: 1-3 times/week during the past year weight has: increased > 10 lbs what type of physical activity do you participate in: walking frequency: 5-6 times per week duration: 30-45 minutes/day seatbelt use: always do you feel safe at home: Yes 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 OB Visit ALFA Calculator Estimated Delivery Date Method Current WG Current Estimate 09/10/24 LMP (Certain) 38w 4d Expected Delivery Route/Plan Labor Preferences- CB/BF classes: [] labor support person: [] labor intervention preferences: [] pain management options preferred: [] cut cord/dad catch: [] : [] PP control planned: [] discussed possible routes of delivery and associated risks: [] special requests: [] Specific Issue/Plans Covid status: [] Flu vaccine: [] Tdap vaccine: Rhogam: [] LARC form signed: [] Problem list reviewed and updated with the most current plan of care details and appropriate orders placed. Relevant counseling for the gestational age provided. Continue routine care and follow up unless otherwise noted in visit notes/problem list details Initial Weight: 172 lb Date -???-???-???-???-???- ???-???-???-???-???-? ??-???- EGA Weight BP Urine Prot -???-???-???-???-???- ???-???-???-???-???-? ??-???- Glucose FHR FuHt Pres Dilation -???-???-???-???-???- ???-???-???-???-???-? ??-???- Effaced St Visit Note 02/04/24 -???-???-???-???-???- ???-???-???-???-???-? ??-???- 8w 5d 172 lb (+0 oz) 121/80 -???-???-???-???-???- ???-???-???-???-???-? ??-???- 155 -???-???-???-???-???- ???-???-???-???-???-? ??-???- SM CRL 1.78c m cons with LMP small 5 mm subchorionic hematoma seen 03/06/24 -???-???-???-???-???- ???-???-???-???-???-? ??-???- 13w 1d 176 lb (+4 lb) 114/73 Negative -???-???-???-???-???- ???-???-???-???-???-? ??-???- Negative 150 -???-???-???-???-???- ???-???-???-???-???-? ??-???- KW- no vb/cr amping. US ordered 04/06/24 -???-???-???-???-???- ???-???-???-???-???-? ??-???- 17w 4d 178 lb (+6 lb) 112/68 Negative -???-???-???-???-???- ???-???-???-???-???-? ??-???- Negative 151 -???-???-???-???-???- ???-???-???-???-???-? ??-???- -No VB. No Flutters yet. Nausea and fatigue improved. MFM US scheduled 04/25/24 -???-???-???-???-???- ???-???-???-???-???-? ??-???- 20w 2d 184 lb 4 oz (+12 lb 4 oz) 112/72 Negative -???-???-???-???-???- ???-???-???-???-???-? ??-???- Negative 152 20 -???-???-???-???-???- ???-???-???-???-???-? ??-???- -No VB. G ood FM. MFM anatomy US today 05/25/24 -???-???-???-???-???- ???-???-???-???-???-? ??-???- 24w 4d 189 lb 8 oz (+17 lb 8 oz) 104/70 Negative -???-???-???-???-???- ???-???-???-???-???-? ??-???- Negative 149 24 -???-???-???-???-???- ???-???-? (more content not included)... Normal [facility] Genital Culture Comprehensiv spenser 08-26-2024 VAC Reason for Exam: vaginal odor Normal vaginal jones isolated. No yeast, Gardnerella, Neisseria or beta-hemolytic Streptococcus isolated. Normal [facility] Comment on above: Performed By: #### L 1311.0353, .1999, M10 ####[facility] [address] [place], [address] Genital cultureOrdered By: Shyanne Michaels on 08-25-2024 Source specific culture Neisseria or beta-hemolytic Streptococcus isolated. [facility] Gram Stainon 08-25-2024 GS Reason for Exam: vaginal odor Gram Stain 4+ Gram positive rods 1+ Epithelial cells No Gram negative diplococci Score = 0 Interpretation: 0-3 Normal, 4-6 Intermediate, 7-10 Positive BV Normal [facility] Comment on above: Performed By: #### L 7400.0353, , [id number] ####[facility] [address] [place], [address] Gram stainOrdered By: Mindy Michaels on 08-25-2024 Microscopic observation Gram stain Nom (Unsp spec) [facility] Delivery Mgr Office Visit Reporton 08-25-2024 Delivery Mgr Office Visit Report [facility] [address], [address] [place] [address] OFFICE VISIT Date of Service: 08/25/24 MR#: [id number] Acct: [id number] Name: BRANDY WINKLER Rep #: [id number] : 1995 Provider: Dr. Mindy llanos MD Age/Sex: 29/F Location: [facility] Status: Signed Intake Vital Signs 04/06/24 15:46 07/18/24 14:34 08/14/24 13:59 08/25/24 14:39 Height 5 ft 5 in 5 ft 5 in 5 ft 5 in 5 ft 5 in Weight: 210 lb BMI 34.9 BP 113/74 Intake Visit Reasons: 37 wk ob/NST Direct Care Provider Required: No Is patient in pain?: No Allergies No Known Allergies Allergy (Verified 08/25/24 14:40) Medications ???Medication ???Instructions ???Recorded ???Confirmed ???Type vitamin#30 30 mg iron-10 cap PO 01/28/24 08/25/24 History mg iron-folic acid 1 mg-omg3 capsule Last Menstrual Period: 12/05/23 Zika: Zika virus screening: Negative : No PFSH PFSH Medical History Pilonidal cyst Urinary frequency Dysuria Surgical History History of appendectomy Social History adopted: No household members: spouse current occupational status: 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: No pets and animals: Yes pets and animals: dog(s) history of recent travel: No sexually active: Yes Smoking Status: Never smoker alcohol intake: never substance use type: does not use well-balanced diet: daily or most days caffeine: Yes Type: coffee eating out: 1-3 times/week during the past year weight has: increased > 10 lbs what type of physical activity do you participate in: walking frequency: 5-6 times per week duration: 30-45 minutes/day seatbelt use: always do you feel safe at home: Yes 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 OB Visit ALFA Calculator Estimated Delivery Date Method Current WG Current Estimate 09/10/24 LMP (Certain) 37w 5d Expected Delivery Route/Plan Labor Preferences- CB/BF classes: [] labor support person: [] labor intervention preferences: [] pain management options preferred: [] cut cord/dad catch: [] : [] PP control planned: [] discussed possible routes of delivery and associated risks: [] special requests: [] Specific Issue/Plans Covid status: [] Flu vaccine: [] Tdap vaccine: Rhogam: [] LARC form signed: [] Problem list reviewed and updated with the most current plan of care details and appropriate orders placed. Relevant counseling for the gestational age provided. Continue routine care and follow up unless otherwise noted in visit notes/problem list details Initial Weight: 172 lb Date -???-???-???-???-???- ???-???-???-???-???-? ??-???- EGA Weight BP Urine Prot -???-???-???-???-???- ???-???-???-???-???-? ??-???- Glucose FHR FuHt Pres Dilation -???-???-???-???-???- ???-???-???-???-???-? ??-???- Effaced St Visit Note 02/04/24 -???-???-???-???-???- ???-???-???-???-???-? ??-???- 8w 5d 172 lb (+0 oz) 121/80 -???-???-???-???-???- ???-???-???-???-???-? ??-???- 155 -???-???-???-???-???- ???-???-???-???-???-? ??-???- SM CRL 1.78c m cons with LMP small 5 mm subchorionic hematoma seen 03/06/24 -???-???-???-???-???- ???-???-???-???-???-? ??-???- 13w 1d 176 lb (+4 lb) 114/73 Negative -???-???-???-???-???- ???-???-???-???-???-? ??-???- Negative 150 -???-???-???-???-???- ???-???-???-???-???-? ??-???- KW- no vb/cr amping. US ordered 04/06/24 -???-???-???-???-???- ???-???-???-???-???-? ??-???- 17w 4d 178 lb (+6 lb) 112/68 Negative -???-???-???-???-???- ???-???-???-???-???-? ??-???- Negative 151 -???-???-???-???-???- ???-???-???-???-???-? ??-???- -No VB. No Flutters yet. Nausea and fatigue improved. MFM US scheduled 04/25/24 -???-???-???-???-???- ???-???-???-???-???-? ??-???- 20w 2d 184 lb 4 oz (+12 lb 4 oz) 112/72 Negative -???-???-???-???-???- ???-???-???-???-???-? ??-???- Negative 152 20 -???-???-???-???-???- ???-???-???-???-???-? ??-???- -No VB. G ood FM. MFM anatomy US today 05/25/24 -???-???-???-???-???- ???-???-???-???-???-? ??-???- 24w 4d 189 lb 8 oz (+17 lb 8 oz) 104/70 Negative -???-???-???-???-???- ???-???-???-???-???-? ??-???- Negative 149 24 -???-???-???-???-???- ???-???-???-???-???-? ??-???- JV- no lof, vaginal bleeding, or cramping. velamentous cord (more content not included)... Normal [facility] PAP I-G w/rfx hrHPV-Aptimaon 08-25-2024 DIAG Normal [facility] Comment on above: Order Comment: Clini donal Info: Collection Vial: Thin Prep VialGYN Source: CERVICALDate LMP/Menopause: LMPCollection Techniques: CX BROOM ONLY Result Comment: NO P AP COLLECTED Performed By: #### L 7400.0353, M100.2000, M100.3200 ####[facility] [address] [place], [place], [id number] HPV REFLEXED? Normal [facility] Comment on above: Order Comment: Clini donal Info: Collection Vial: Thin Prep VialGYN Source: CERVICALDate LMP/Menopause: LMPCollection Techniques: CX BROOM ONLY Result Comment: NO P AP COLLECTED Performed By: #### L 7400.0353, M100.2000, M100.3200 ####[facility] [address] [place], [place], [id number] Rule out Beta Strep (Grp. B) on 08-17-2024 RAGHAV Group B Beta Streptococcus is not isolated. [facility] Comment on above: Performed By: #### M 100.3400 ####[facility] [address] [place], [place], [id number] Laboratory - Chemistry and C hemistry - challengeOrdered By: Joann Atkins on 08-14-2024 Glucose Ql (U) Negative [facility] Laboratory - UrinalysisOrder ed By: Joann Atkins on 08-14-2024 Protein Ql (U) 1+ [facility] Delivery Mgr Office Visit Reporton 08-14-2024 Delivery Mgr Office Visit Report [facility] [address], [address] [place] [address] OFFICE VISIT Date of Service: 08/14/24 MR#: [id number] Acct: [id number] Name: BRANDY WINKLER Rep #: [id number] : 1995 Provider: Dr. Joann Yeung DO Age/Sex: 29/F Location: [facility] Status: Signed Intake Vital Signs 04/06/24 15:46 07/18/24 14:34 08/04/24 13:50 08/14/24 13:59 08/14/24 13:59 Height 5 ft 5 in 5 ft 5 in 5 ft 5 in 5 ft 5 in 5 ft 5 in Weight: 204 lb 9 oz 207 lb 6 oz 208 lb 8 oz BMI 34.0 34.4 34.7 BP 113/72 109/72 105/69 Intake Visit Reasons: 36 wk ob/NST Direct Care Provider Required: No Is patient in pain?: No Allergies No Known Allergies Allergy (Verified 08/14/24 13:58) Medications ???Medication ???Instructions ???Recorded ???Confirmed ???Type vitamin#30 30 mg iron-10 cap PO 01/28/24 08/14/24 History mg iron-folic acid 1 mg-omg3 capsule Last Menstrual Period: 12/05/23 Zika: Zika virus screening: Negative : No PFSH PFSH Medical History Pilonidal cyst Urinary frequency Dysuria Surgical History History of appendectomy Social History adopted: No household members: spouse 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 occupational status: 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: No pets and animals: Yes pets and animals: dog(s) history of recent travel: No sexually active: Yes Smoking Status: Never smoker alcohol intake: never substance use type: does not use well-balanced diet: daily or most days caffeine: Yes Type: coffee eating out: 1-3 times/week during the past year weight has: increased > 10 lbs what type of physical activity do you participate in: walking frequency: 5-6 times per week duration: 30-45 minutes/day seatbelt use: always do you feel safe at home: Yes 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 OB Visit ALFA Calculator Estimated Delivery Date Method Current WG Current Estimate 09/10/24 LMP (Certain) 36w 1d Expected Delivery Route/Plan Labor Preferences- CB/BF classes: [] labor support person: [] labor intervention preferences: [] pain management options preferred: [] cut cord/dad catch: [] : [] PP control planned: [] discussed possible routes of delivery and associated risks: [] special requests: [] Specific Issue/Plans Covid status: [] Flu vaccine: [] Tdap vaccine: Rhogam: [] LARC form signed: [] Problem list reviewed and updated with the most current plan of care details and appropriate orders placed. Relevant counseling for the gestational age provided. Continue routine care and follow up unless otherwise noted in visit notes/problem list details Initial Weight: 172 lb Date -???-???-???-???-???- ???-???-???-???-???-? ??-???- EGA Weight BP Urine Prot -???-???-???-???-???- ???-???-???-???-???-? ??-???- Glucose FHR FuHt Pres Dilation -???-???-???-???-???- ???-???-???-???-???-? ??-???- Effaced St Visit Note 02/04/24 -???-???-???-???-???- ???-???-???-???-???-? ??-???- 8w 5d 172 lb (+0 oz) 121/80 -???-???-???-???-???- ???-???-???-???-???-? ??-???- 155 -???-???-???-???-???- ???-???-???-???-???-? ??-???- SM CRL 1.78c m cons with LMP small 5 mm subchorionic hematoma seen 03/06/24 -???-???-???-???-???- ???-???-???-???-???-? ??-???- 13w 1d 176 lb (+4 lb) 114/73 Negative -???-???-???-???-???- ???-???-???-???-???-? ??-???- Negative 150 -???-???-???-???-???- ???-???-???-???-???-? ??-???- KW- no vb/cr amping. US ordered 04/06/24 -???-???-???-???-???- ???-???-???-???-???-? ??-???- 17w 4d 178 lb (+6 lb) 112/68 Negative -???-???-???-???-???- ???-???-???-???-???-? ??-???- Negative 151 -???-???-???-???-???- ???-???-???-???-???-? ??-???- MH-No VB. No Flutters yet. Nausea and fatigue improved. MFM US scheduled 04/25/24 -???-???-???-???-???- ???-???-???-???-???-? ??-???- 20w 2d 184 lb 4 oz (+12 lb 4 oz) 112/72 Negative -???-???-???-???-???- ???-???-???-???-???-? ??-???- Negative 152 20 -???-???-???-???-???- ???-???-???-???-???-? ??-???- -No VB. G ood FM. MFM anatomy US today 05/25/24 -???-???-???-???-???- ???-???-???-???-???-? ??-???- 24w 4d 189 lb 8 oz (+17 lb 8 oz) 104/70 Negative -???-???-???-???-???- ???-???-???-???-???-? ??-???- Negative 149 24 -???-???-???-???-???- ???-? (more content not included)... Normal [facility] Screening beta-hemolytic Str eptococcus cultureOrdered By: Joann Atkins on 08-14-2024 Beta-hemolytic Streptococcus culture Group B Beta Streptococcus is not isolated. [facility] Laboratory - Chemistry and C hemistry - challengeOrdered By: Rani Ridley on 08-04-2024 Glucose Ql (U) Negative [facility] Laboratory - UrinalysisOrder ed By: Rani Ridley on 08-04-2024 Protein Ql (U) 1+ [facility] Delivery Mgr Office Visit Reporton 08-04-2024 Delivery Mgr [facility] Visit [facility] [address] [place] [address], [address] [place] [address] OFFICE VISIT Date of Service: 08/04/24 MR#: [id number] Acct: [id number] Name: BRANDY WINKLER Rep #: [id number] : 1995 Provider: JOHNNY barragan Age/Sex: 29/F Location: [facility] Status: Signed Intake Vital Signs 04/06/24 15:46 07/18/24 14:34 08/04/24 13:50 Height 5 ft 5 in 5 ft 5 in 5 ft 5 in Weight: 207 lb 6 oz BMI 34.4 BP 109/72 Intake Visit Reasons: 34 wk ob Direct Care Provider Required: No Is patient in pain?: No Allergies No Known Allergies Allergy (Verified 08/04/24 13:53) Medications ???Medication ???Instructions ???Recorded ???Confirmed ???Type vitamin#30 30 mg iron-10 cap PO 01/28/24 08/04/24 History mg iron-folic acid 1 mg-omg3 capsule Last Menstrual Period: 12/05/23 Zika: Zika virus screening: Negative : No Have you fallen in the past year?: No PFSH PFSH Medical History Pilonidal cyst Urinary frequency Dysuria Surgical History History of appendectomy Social History adopted: No household members: spouse current occupational status: 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: No pets and animals: Yes pets and animals: dog(s) history of recent travel: No sexually active: Yes Smoking Status: Never smoker alcohol intake: never substance use type: does not use well-balanced diet: daily or most days caffeine: Yes Type: coffee eating out: 1-3 times/week during the past year weight has: increased > 10 lbs what type of physical activity do you participate in: walking frequency: 5-6 times per week duration: 30-45 minutes/day seatbelt use: always do you feel safe at home: Yes 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 OB Visit ALFA Calculator Estimated Delivery Date Method Current WG Current Estimate 09/10/24 LMP (Certain) 34w 5d Expected Delivery Route/Plan Labor Preferences- CB/BF classes: [] labor support person: [] labor intervention preferences: [] pain management options preferred: [] cut cord/dad catch: [] : [] PP control planned: [] discussed possible routes of delivery and associated risks: [] special requests: [] Specific Issue/Plans Covid status: [] Flu vaccine: [] Tdap vaccine: Rhogam: [] LARC form signed: [] Problem list reviewed and updated with the most current plan of care details and appropriate orders placed. Relevant counseling for the gestational age provided. Continue routine care and follow up unless otherwise noted in visit notes/problem list details Initial Weight: 172 lb Date -???-???-???-???-???- ???-???-???-???-???-? ??-???- EGA Weight BP Urine Prot -???-???-???-???-???- ???-???-???-???-???-? ??-???- Glucose FHR FuHt Pres Dilation -???-???-???-???-???- ???-???-???-???-???-? ??-???- Effaced St Visit Note 02/04/24 -???-???-???-???-???- ???-???-???-???-???-? ??-???- 8w 5d 172 lb (+0 oz) 121/80 -???-???-???-???-???- ???-???-???-???-???-? ??-???- 155 -???-???-???-???-???- ???-???-???-???-???-? ??-???- SM CRL 1.78c m cons with LMP small 5 mm subchorionic hematoma seen 03/06/24 -???-???-???-???-???- ???-???-???-???-???-? ??-???- 13w 1d 176 lb (+4 lb) 114/73 Negative -???-???-???-???-???- ???-???-???-???-???-? ??-???- Negative 150 -???-???-???-???-???- ???-???-???-???-???-? ??-???- KW- no vb/cr amping. US ordered 04/06/24 -???-???-???-???-???- ???-???-???-???-???-? ??-???- 17w 4d 178 lb (+6 lb) 112/68 Negative -???-???-???-???-???- ???-???-???-???-???-? ??-???- Negative 151 -???-???-???-???-???- ???-???-???-???-???-? ??-???- MH-No VB. No Flutters yet. Nausea and fatigue improved. [facility] US scheduled 04/25/24 -???-???-???-???-???- ???-???-???-???-???-? ??-???- 20w 2d 184 lb 4 oz (+12 lb 4 oz) 112/72 Negative -???-???-???-???-???- ???-???-???-???-???-? ??-???- Negative 152 20 -???-???-???-???-???- ???-???-???-???-???-? ??-???- -No VB. G ood FM. MFM anatomy US today 05/25/24 -???-???-???-???-???- ???-???-???-???-???-? ??-???- 24w 4d 189 lb 8 oz (+17 lb 8 oz) 104/70 Negative -???-???-???-???-???- ???-???-???-???-???-? ??-???- Negative 149 24 -???-???-???-???-???- ???-???-???-???-???-? ??-???- JV- no lof, vaginal bleeding, or cramping. velamentous cord ins (more content not included)... Normal [facility] Laboratory - Chemistry and C hemistry - challengeOrdered By: Mindy Michaels on 07-18-2024 Glucose Ql (U) Negative [facility] Laboratory - UrinalysisOrder ed By: Mindy Michaels on 07-18-2024 Protein Ql (U) Negative [facility] Delivery Mgr Office Visit Reporton 07-18-2024 Delivery Mgr Office Visit Report [facility]'s [address], [address] [place] [address] OFFICE VISIT Date of Service: 07/18/24 MR#: [id number] Acct: [id number] Name: BRANDY WINKLER TRISH Rep #: [id number] : 1995 Provider: Dr. Mindy llanos MD Age/Sex: 28/F Location: [facility] [place] Status: Signed Intake Vital Signs 04/06/24 15:46 07/04/24 15:28 07/18/24 14:34 Height 5 ft 5 in 5 ft 5 in 5 ft 5 in Weight: 204 lb 9 oz BMI 34.0 BP 113/72 Intake Visit Reasons: 32 wk ob Direct Care Provider Required: No Is patient in pain?: No Allergies No Known Allergies Allergy (Verified 07/18/24 14:35) Medications ???Medication ???Instructions ???Recorded ???Confirmed ???Type vitamin#30 30 mg iron-10 cap PO 01/28/24 07/18/24 History mg iron-folic acid 1 mg-omg3 capsule Last Menstrual Period: 12/05/23 Zika: Zika virus screening: Negative : No PFSH PFSH Medical History Pilonidal cyst Urinary frequency Dysuria Surgical History History of appendectomy Social History adopted: No household members: spouse current occupational status: 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: No pets and animals: Yes pets and animals: dog(s) history of recent travel: No sexually active: Yes Smoking Status: Never smoker alcohol intake: never substance use type: does not use well-balanced diet: daily or most days caffeine: Yes Type: coffee eating out: 1-3 times/week during the past year weight has: increased > 10 lbs what type of physical activity do you participate in: walking frequency: 5-6 times per week duration: 30-45 minutes/day seatbelt use: always do you feel safe at home: Yes 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 Elective abortions Hx Para 0 Spontaneous abortions Hx # Term Pregnancies Ectopic pregnancies Hx # Pregnancies Multiple births # of living children HPI 32 wk ob Details: BRANDY WINKLER is a 28 year old who presents for routine OB visit. OB Visit ALFA Calculator Estimated Delivery Date Method Current WG Current Estimate 09/10/24 LMP (Certain) 32w 2d Expected Delivery Route/Plan Labor Preferences- CB/BF classes: [] labor support person: [] labor intervention preferences: [] pain management options preferred: [] cut cord/dad catch: [] : [] PP control planned: [] discussed possible routes of delivery and associated risks: [] special requests: [] Specific Issue/Plans Covid status: [] Flu vaccine: [] Tdap vaccine: Rhogam: [] LARC form signed: [] Problem list reviewed and updated with the most current plan of care details and appropriate orders placed. Relevant counseling for the gestational age provided. Continue routine care and follow up unless otherwise noted in visit notes/problem list details Initial Weight: 172 lb Date -???-???-???-???-???- ???-???-???-???-???-? ??-???- EGA Weight BP Urine Prot -???-???-???-???-???- ???-???-???-???-???-? ??-???- Glucose FHR FuHt Pres Dilation -???-???-???-???-???- ???-???-???-???-???-? ??-???- Effaced St Visit Note 02/04/24 -???-???-???-???-???- ???-???-???-???-???-? ??-???- 8w 5d 172 lb (+0 oz) 121/80 -???-???-???-???-???- ???-???-???-???-???-? ??-???- 155 -???-???-???-???-???- ???-???-???-???-???-? ??-???- SM CRL 1.78c m cons with LMP small 5 mm subchorionic hematoma seen 03/06/24 -???-???-???-???-???- ???-???-???-???-???-? ??-???- 13w 1d 176 lb (+4 lb) 114/73 Negative -???-???-???-???-???- ???-???-???-???-???-? ??-???- Negative 150 -???-???-???-???-???- ???-???-???-???-???-? ??-???- KW- no vb/cr amping. US ordered 04/06/24 -???-???-???-???-???- ???-???-???-???-???-? ??-???- 17w 4d 178 lb (+6 lb) 112/68 Negative -???-???-???-???-???- ???-???-???-???-???-? ??-???- Negative 151 -???-???-???-???-???- ???-???-???-???-???-? ??-???- MH-No VB. No Flutters yet. Nausea and fatigue improved. MFM US scheduled 04/25/24 -???-???-???-???-???- ???-???-???-???-???-? ??-???- 20w 2d 184 lb 4 oz (+12 lb 4 oz) 112/72 Negative -???-???-???-???-???- ???-???-???-???-???-? ??-???- Negative 152 20 -???-???-???-???-???- ???-???-???-???-???-? ??-???- MH-No VB. G ood FM. MFM anatomy US today 05/25/24 -???-???-???-???-???- ???-???-???-???-???-? ??-???- 24w 4d 189 lb 8 oz (+17 lb 8 oz) 104/70 Negative -???-???-???-???-???- ???-???-???-???-???-? ??-???- Negative 149 24 -???-???-???-???-???- ???-???-???-???-???-? ??-???- JV- no lof, vaginal bleeding, or cramping. velamentous cord insertion and will do q 4 week (more content not included)... Normal [facility] Laboratory - Chemistry and C hemistry - challengeOrdered By: Ayana Valencia on 07-04-2024 Glucose Ql (U) Negative [facility] Laboratory - UrinalysisOrder ed By: Ayana Valencia on 07-04-2024 Protein Ql (U) Negative [facility] Delivery Mgr Office Visit Reporton 07-04-2024 Delivery Mgr Office Visit Report [facility] [address] [place] [address], [address] [place] [address] OFFICE VISIT Date of Service: 07/04/24 MR#: [id number] Acct: [id number] Name: BRANDY WINKLER Rep #: [id number] : 1995 Provider: JOHNNY Estrada ams Age/Sex: 28/F Location: [facility] [place] Status: Signed Intake Vital Signs 04/06/24 15:46 06/21/24 14:57 07/04/24 15:28 Height 5 ft 5 in 5 ft 5 in 5 ft 5 in Weight: 197 lb 6 oz 201 lb BMI 32.8 33.4 BP 138/82 H 116/83 H Intake Visit Reasons: 30 wk ob Chief Complaint: 30wk OB Is patient in pain?: No Allergies No Known Allergies Allergy (Verified 07/04/24 15:29) Medications ???Medication ???Instructions ???Recorded ???Confirmed ???Type vitamin#30 30 mg iron-10 cap PO 01/28/24 07/04/24 History mg iron-folic acid 1 mg-omg3 capsule Last Menstrual Period: 12/05/23 : No PFSH PFSH Medical History Pilonidal cyst Urinary frequency Dysuria Surgical History History of appendectomy Social History adopted: No household members: spouse current occupational status: 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: No pets and animals: Yes pets and animals: dog(s) history of recent travel: No sexually active: Yes Smoking Status: Never smoker alcohol intake: never substance use type: does not use well-balanced diet: daily or most days caffeine: Yes Type: coffee eating out: 1-3 times/week during the past year weight has: increased > 10 lbs what type of physical activity do you participate in: walking frequency: 5-6 times per week duration: 30-45 minutes/day seatbelt use: always do you feel safe at home: Yes 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 OB Visit ALFA Calculator Estimated Delivery Date Method Current WG Current Estimate 09/10/24 LMP (Certain) 30w 2d Expected Delivery Route/Plan Labor Preferences- CB/BF classes: [] labor support person: [] labor intervention preferences: [] pain management options preferred: [] cut cord/dad catch: [] : [] PP control planned: [] discussed possible routes of delivery and associated risks: [] special requests: [] Specific Issue/Plans Covid status: [] Flu vaccine: [] Tdap vaccine: Rhogam: [] LARC form signed: [] Problem list reviewed and updated with the most current plan of care details and appropriate orders placed. Relevant counseling for the gestational age provided. Continue routine care and follow up unless otherwise noted in visit notes/problem list details Initial Weight: 172 lb Date -???-???-???-???-???- ???-???-???-???-???-? ??-???- EGA Weight BP Urine Prot -???-???-???-???-???- ???-???-???-???-???-? ??-???- Glucose FHR FuHt Pres Dilation -???-???-???-???-???- ???-???-???-???-???-? ??-???- Effaced St Visit Note 02/04/24 -???-???-???-???-???- ???-???-???-???-???-? ??-???- 8w 5d 172 lb (+0 oz) 121/80 -???-???-???-???-???- ???-???-???-???-???-? ??-???- 155 -???-???-???-???-???- ???-???-???-???-???-? ??-???- SM CRL 1.78c m cons with LMP small 5 mm subchorionic hematoma seen 03/06/24 -???-???-???-???-???- ???-???-???-???-???-? ??-???- 13w 1d 176 lb (+4 lb) 114/73 Negative -???-???-???-???-???- ???-???-???-???-???-? ??-???- Negative 150 -???-???-???-???-???- ???-???-???-???-???-? ??-???- KW- no vb/cr amping. US ordered 04/06/24 -???-???-???-???-???- ???-???-???-???-???-? ??-???- 17w 4d 178 lb (+6 lb) 112/68 Negative -???-???-???-???-???- ???-???-???-???-???-? ??-???- Negative 151 -???-???-???-???-???- ???-???-???-???-???-? ??-???- -No VB. No Flutters yet. Nausea and fatigue improved. M US scheduled 04/25/24 -???-???-???-???-???- ???-???-???-???-???-? ??-???- 20w 2d 184 lb 4 oz (+12 lb 4 oz) 112/72 Negative -???-???-???-???-???- ???-???-???-???-???-? ??-???- Negative 152 20 -???-???-???-???-???- ???-???-???-???-???-? ??-???- -No VB. G ood FM. MFM anatomy US today 05/25/24 -???-???-???-???-???- ???-???-???-???-???-? ??-???- 24w 4d 189 lb 8 oz (+17 lb 8 oz) 104/70 Negative -???-???-???-???-???- ???-???-???-???-???-? ??-???- Negative 149 24 -???-???-???-???-???- ???-???-???-???-???-? ??-???- JV- no lof, vaginal bleeding, or cramping. velamentous cord insertion and will do q 4 week ultrasounds 06/21/24 -?? (more content not included)... Normal [facility] Absolute lymphocyte countOrd ered By: Joann Milly on 06-22-2024 Lymphocytes Auto (Unsp spec) [#/Vol] 1.71 10*3/uL 0.83-4.51 [facility] Absolute neutrophil countOrd ered By: [facility]ann [facility] on 06-22-2024 Neutrophils (Bld) [#/Vol] 7.2 10*3/uL 2.0-7.7 [facility] Automated lymphocyte count a s percentage of total leukocytesOrdered By: Joann Atkins on 06-22-2024 Lymphocytes/100 WBC Auto (Unsp spec) 17.1 % Low 19-41 [facility] Basophil percentageOrdered B y: Joann Milly on 06-22-2024 Basophils/100 WBC (Bld) 0.3 % 0-1 [facility] CBC W/Diff, Automatedon 06-10 Absolute Lymph 1.71 X10 3/uL Normal 0.83-4.51 [facility] Comment on above: Performed By: #### L 100.0100, L501.0250, L3890.6006, L509.8002 ####[facility] [address] [place], [place], [id number] Absolute Neut 7.2 X10 3/uL Normal 2.0-7.7 [facility] Comment on above: Performed By: #### L 100.0100, L501.0250, L3890.6006, L509.8002 ####[facility] [address] [place], [address] Basophils/100 WBC (Bld) 0.3 % Normal 0-1 [facility] Comment on above: Performed By: #### L 100.0100, L501.0250, L3890.6006, L509.8002 ####[facility] [address] [place], [address] Eosinophils/100 WBC (Bld) 1.4 % Normal 0-5 [facility] Comment on above: Performed By: #### L 100.0100, L501.0250, L3890.6006, L509.8002 ####[facility] [address] [place], [address] Erythrocyte distribution width (RBC) [Ratio] 13.9 % Normal 11.6-14.6 [facility] Comment on above: Performed By: #### L 100.0100, L501.0250, L3890.6006, L509.8002 ####[facility] [address] [place], [address] Hematocrit (Bld) [Volume fraction] 36.2 % Low 37-47 [facility] Comment on above: Performed By: #### L 100.0100, L501.0250, L3890.6006, L509.8002 ####[facility] [address] [place], [address] Hemoglobin (Bld) [Mass/Vol] 12.1 g/dL Normal 12.0-15.0 [facility] Comment on above: Performed By: #### L 100.0100, L501.0250, L3890.6006, L509.8002 ####[facility] [address] [place], [address] IG% 0.600 Normal 0.0-0.9 [facility] Comment on above: Result Comment: IG% - Immature Granulocytes (promyelocytes, myelocytes and metamyelocytes) > 1% indicates that a LEFT SHIFT is Present. Performed By: #### L 100.0100, L501.0250, L3890.6006, L509.8002 ####[facility] [address] [place], [address] Lymphocytes/100 WBC (Bld) 17.1 % Low 19-41 [facility] Comment on above: Performed By: #### L 100.0100, L501.0250, L3890.6006, L509.8002 ####[facility] [address] [place], [address] MCH (RBC) [Entitic mass] 29.5 pg Normal 27.0-32.0 [facility] Comment on above: Performed By: #### L 100.0100, L501.0250, L3890.6006, L509.8002 ####[facility] [address] [place], [address] MCHC (RBC) [Mass/Vol] 33.4 g/dL Normal 32-36 [facility] Comment on above: Performed By: #### L 100.0100, L501.0250, L3890.6006, L509.8002 ####[facility] [address] [place], [address] MCV (RBC) [Entitic vol] 88.3 fL Normal 81-99 [facility] Comment on above: Performed By: #### L 100.0100, L501.0250, L3890.6006, L509.8002 ####[facility] [address] [place], [address] Monocytes/100 WBC (Bld) 8.7 % Normal 0-10 [facility] Comment on above: Performed By: #### L 100.0100, L501.0250, L3890.6006, L509.8002 ####[facility] [address] [place], [address] Neutrophils/100 WBC (Bld) 71.9 % High 47-70 [facility] Comment on above: Performed By: #### L 100.0100, L501.0250, L3890.6006, L509.8002 ####[facility] [address] [place], [address] Nucleated RBC (Bld) [#/Vol] 0 10*3/uL Normal 0-5 [facility] Comment on above: Performed By: #### L 100.0100, L501.0250, L3890.6006, L509.8002 ####[facility] [address] [place], [address] Platelet mean volume (Bld) [Entitic vol] 9.7 fL Normal 6.2-12.0 [facility] Comment on above: Performed By: #### L 100.0100, L501.0250, L3890.6006, L509.8002 ####[facility] [address] [place], [address] Platelets (Bld) [#/Vol] 245 10*3/uL Normal 150-450 [facility] Comment on above: Performed By: #### L 100.0100, L501.0250, L3890.6006, L509.8002 ####[facility] [address] [place], [address] RBC (Bld) [#/Vol] 4.10 10*6/uL Low 4.2-5.4 [facility] Comment on above: Performed By: #### L 100.0100, L501.0250, L3890.6006, L509.8002 ####[facility] [address] [place], [address] RDW SD 44.8 fl High 35.1-43.9 [facility] Comment on above: Performed By: #### L 100.0100, L501.0250, L3890.6006, L509.8002 ####[facility] [address] [place], [address] WBC (Bld) [#/Vol] 10.0 10*3/uL Normal 4.4-11.0 [facility] Comment on above: Performed By: #### L 100.0100, L501.0250, L3890.6006, L509.8002 ####[facility] [address] [place], [address] Eosinophil percentageOrdered By: Joann Atkins on 06-22-2024 Eosinophils/100 WBC (Bld) 1.4 % 0-5 [facility] Erythrocyte distribution wid th ratioOrdered By: Joann Atkins on 06-22-2024 Erythrocyte distribution width (RBC) [Ratio] 13.9 % 11.6-14.6 [facility] Erythrocyte distribution wid th standard deviationOrdered By: Joann Atkins on 06-22-2024 Erythrocyte distribution width (RBC) [Entitic vol] 44.8 fL High 35.1-43.9 [facility] Erythrocyte distribution width (RBC) [Ratio] 44.8 fl High 35.1-43.9 [facility] Glucose Challenge Gest 1H 50 lazaro 06-22-2024 GLU GEST 50g 1H 116 mg/dL Normal 70-140 [facility] Comment on above: Performed By: #### L 100.0100, L501.0250, L3890.6006, L509.8002 ####[facility] [address] [place], [address] Glucose measurement at 2 rahat rs post-dose gestational glucose tolerance testOrdered By: Joann Atkins on 06-22-2024 Glucose [Mass/Vol] 116 mg/dL 70-140 [facility] Hematocrit Auto (Bld) [Volum e fraction]Ordered By: Joann Atkins on 06-22-2024 Hematocrit (Bld) [Volume fraction] 36.2 % Low 37-47 [facility] Hemoglobin measurementOrdere d By: Joann Atkins on 06-22-2024 Hemoglobin (Bld) [Mass/Vol] 12.1 g/dL 12.0-15.0 [facility] Immature granulocytes/100 WB C Auto (Bld)Ordered By: Joann Atkins on 06-22-2024 Immature granulocytes/100 WBC (Bld) 0.600 % 0.0-0.9 [facility] Comment on above: IG% - Immature Granu locytes (promyelocytes, myelocytes and metamyelocytes) > 1% indicates that a LEFT SHIFT is Present. L3890.6006on 06-22-2024 HIV Non-Reactive Normal Nonreactive [facility] Comment on above: Result Comment: Non- Reactive Reactive Repeatedly reactive samples must be confirmed according to CDC recommended confirmatory algorithms. The subresults for either HIVAG or AHIV can be used as an aid in the selection of the confirmation algorithm for reactive samples. Send out specimens with Reactive results to [facility] for confirmation. Order the HIV antibody detection and differentiation: #[id number] Performed By: #### L 100.0100, L501.0250, L3890.6006, L509.8002 ####[facility] [address] [place], [place], [address] L509.8002on 06-22-2024 Syphilis Abs Non-Reactive Normal Nonreactive [facility] Comment on above: Performed By: #### L 100.0100, L501.0250, L3890.6006, L509.8002 ####[facility] [address] [place], [place], [id number] Lymphocytes Auto (Unsp spec) [#/Vol]Ordered By: Joann Atkins on 06-22-2024 Lymphocytes (Bld) [#/Vol] 1.71 10*3/uL 0.83-4.51 [facility] Lymphocytes/100 WBC Auto (Un sp spec)Ordered By: Joann Atkins on 06-22-2024 Lymphocytes/100 WBC (Bld) 17.1 % Low 19-41 [facility] MCV (mean corpuscular volume ) determinationOrdered By: Joann Atkins on 06-22-2024 MCV (RBC) [Entitic vol] 88.3 fL 81-99 [facility] Mean corpuscular hemoglobin (MCH) determinationOrdered By: Joann Atkins on 06-22-2024 MCH (RBC) [Entitic mass] 29.5 pg 27.0-32.0 [facility] Mean corpuscular hemoglobin concentration (MCHC) determinationOrdered By: Joann Atkins on 06-22-2024 MCHC (RBC) [Mass/Vol] 33.4 g/dL 32-36 [facility] Mean platelet volume determi nationOrdered By: Joann Atkins on 06-22-2024 Platelet mean volume (Bld) [Entitic vol] 9.7 fL 6.2-12.0 [facility] Monocyte percentageOrdered B y: Joann Atkins on 06-22-2024 Monocytes/100 WBC (Bld) 8.7 % 0-10 [facility] Neutrophil percentageOrdered By: Joann Atkins on 06-22-2024 Neutrophils/100 WBC (Bld) 71.9 % High 47-70 [facility] No Panel InformationOrdered By: Joann Atkins on 06-22-2024 HIV (1&2) Antibody Non-Reactive Nonreactive [facility] Comment on above: Non-ReactiveReactive Repeatedly reactive samples must be confirmed according to CDC recommended confirmatory algorithms. The subresults for either HIVAG or AHIV can be used as an aid in the selection of the confirmation algorithm for reactive samples.Send out specimens with Reactive results to [facility] for confirmation.Order the HIV antibody detection and differentiation: lc#[id number] Nucleated red blood cell per centageOrdered By: Joann Atkins on 06-22-2024 Nucleated RBC/100 WBC (Bld) [Ratio] 0 % 0-5 [facility] Platelet countOrdered By: Rangel Atkins on 06-22-2024 Platelets (Bld) [#/Vol] 245 10*3/uL 150-450 [facility] RBC Auto (Bld) [#/Vol]Ordere d By: Joann Atkins on 06-22-2024 RBC (Bld) [#/Vol] 4.10 10*6/uL Low 4.2-5.4 [facility] T. pallidum abOrdered By: Rangel arreolaalton Milly on 06-22-2024 Syphilis Total Antibody Non-Reactive Nonreactiv e [facility] White blood cell (WBC) count Ordered By: Joann Milly on 06-22-2024 WBC (Bld) [#/Vol] 10.0 10*3/uL 4.4-11.0 [facility] Delivery Mgr Office Visit Reporton 06-21-2024 Delivery Mgr Office Visit Report [facility]'s [address], [address] [place] [address] OFFICE VISIT Date of Service: 06/21/24 MR#: [id number] Acct: [id number] Name: BRANDY WINKLER Rep #: : 1995 Provider: Dr. Mindy llanos MD Age/Sex: 28/F Location: [facility] [place] Status: Signed Intake Vital Signs 04/06/24 15:46 05/25/24 15:07 06/21/24 14:56 06/21/24 14:57 Height 5 ft 5 in 5 ft 5 in 5 ft 5 in 5 ft 5 in Weight: 197 lb 6 oz 197 lb 6 oz BMI 32.8 32.8 BP 138/82 H Intake Visit Reasons: 28 wk ob/glucose Direct Care Provider Required: No Is patient in pain?: No Allergies No Known Allergies Allergy (Verified 06/21/24 14:56) Medications ???Medication ???Instructions ???Recorded ???Confirmed ???Type vitamin#30 30 mg iron-10 cap PO 01/28/24 06/21/24 History mg iron-folic acid 1 mg-omg3 capsule Last Menstrual Period: 12/05/23 Zika: Zika virus screening: Negative : No PFSH PFSH Medical History Pilonidal cyst Urinary frequency Dysuria Surgical History History of appendectomy Social History adopted: No household members: spouse current occupational status: 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: No pets and animals: Yes pets and animals: dog(s) history of recent travel: No sexually active: Yes Smoking Status: Never smoker alcohol intake: never substance use type: does not use well-balanced diet: daily or most days caffeine: Yes Type: coffee eating out: 1-3 times/week during the past year weight has: increased > 10 lbs what type of physical activity do you participate in: walking frequency: 5-6 times per week duration: 30-45 minutes/day seatbelt use: always do you feel safe at home: Yes 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 OB Visit ALFA Calculator Estimated Delivery Date Method Current WG Current Estimate 09/10/24 LMP (Certain) 28w 3d Expected Delivery Route/Plan Labor Preferences- CB/BF classes: [] labor support person: [] labor intervention preferences: [] pain management options preferred: [] cut cord/dad catch: [] : [] PP control planned: [] discussed possible routes of delivery and associated risks: [] special requests: [] Specific Issue/Plans Covid status: [] Flu vaccine: [] Tdap vaccine: Rhogam: [] LARC form signed: [] Problem list reviewed and updated with the most current plan of care details and appropriate orders placed. Relevant counseling for the gestational age provided. Continue routine care and follow up unless otherwise noted in visit notes/problem list details Initial Weight: 172 lb Date -???-???-???-???-???- ???-???-???-???-???-? ??-???- EGA Weight BP Urine Prot -???-???-???-???-???- ???-???-???-???-???-? ??-???- Glucose FHR FuHt Pres Dilation -???-???-???-???-???- ???-???-???-???-???-? ??-???- Effaced St Visit Note 02/04/24 -???-???-???-???-???- ???-???-???-???-???-? ??-???- 8w 5d 172 lb (+0 oz) 121/80 -???-???-???-???-???- ???-???-???-???-???-? ??-???- 155 -???-???-???-???-???- ???-???-???-???-???-? ??-???- SM CRL 1.78c m cons with LMP small 5 mm subchorionic hematoma seen 03/06/24 -???-???-???-???-???- ???-???-???-???-???-? ??-???- 13w 1d 176 lb (+4 lb) 114/73 Negative -???-???-???-???-???- ???-???-???-???-???-? ??-???- Negative 150 -???-???-???-???-???- ???-???-???-???-???-? ??-???- KW- no vb/cr amping. US ordered 04/06/24 -???-???-???-???-???- ???-???-???-???-???-? ??-???- 17w 4d 178 lb (+6 lb) 112/68 Negative -???-???-???-???-???- ???-???-???-???-???-? ??-???- Negative 151 -???-???-???-???-???- ???-???-???-???-???-? ??-???- -No VB. No Flutters yet. Nausea and fatigue improved. MFM US scheduled 04/25/24 -???-???-???-???-???- ???-???-???-???-???-? ??-???- 20w 2d 184 lb 4 oz (+12 lb 4 oz) 112/72 Negative -???-???-???-???-???- ???-???-???-???-???-? ??-???- Negative 152 20 -???-???-???-???-???- ???-???-???-???-???-? ??-???- -No VB. G ood FM. MFM anatomy US today 05/25/24 -???-???-???-???-???- ???-???-???-???-???-? ??-???- 24w 4d 189 lb 8 oz (+17 lb 8 oz) 104/70 Negative -???-???-???-???-???- ???-???-???-???-???-? ??-???- Negative 149 24 -???-???-???-???-???- ???-???-???-???-???-? ??-???- JV- no lof, vaginal bleeding (more content not included)... Normal [facility] - Chemistry and C hemistry - challengeOrdered By: Joann Atkins on 05-25-2024 Glucose Ql (U) Negative [facility] - UrinalysisOrder ed By: Joann Atkins on 05-25-2024 Protein Ql (U) Negative [facility] Delivery Mgr Office Visit Reporton 05-25-2024 Delivery Mgr Office Visit Report [facility] [address], [address] [place] [address] OFFICE VISIT Date of Service: 05/25/24 MR#: [id number] Acct: [id number] Name: BRANDY WINKLER Rep #: [id number] : 1995 Provider: Dr. Joann Yeung DO Age/Sex: 28/F Location: [facility] Status: Signed Intake Vital Signs 04/06/24 15:46 04/25/24 13:03 05/25/24 15:06 05/25/24 15:07 Height 5 ft 5 in 5 ft 5 in 5 ft 5 in 5 ft 5 in Weight: 178 lb 184 lb 4 oz 189 lb 8 oz BMI 29.6 30.7 31.5 BP 112/68 112/72 104/70 Intake Visit Reasons: 24 wk ob Direct Care Provider Required: No Is patient in pain?: No Allergies No Known Allergies Allergy (Verified 05/25/24 15:06) Medications ???Medication ???Instructions ???Recorded ???Confirmed ???Type vitamin#30 30 mg iron-10 cap PO 01/28/24 05/25/24 History mg iron-folic acid 1 mg-omg3 capsule Last Menstrual Period: 12/05/23 Zika: Zika virus screening: Negative : No PFSH PFSH Medical History Pilonidal cyst Urinary frequency Dysuria Surgical History History of appendectomy Social History adopted: No household members: spouse current occupational status: 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: No pets and animals: Yes pets and animals: dog(s) history of recent travel: No sexually active: Yes Smoking Status: Never smoker alcohol intake: never substance use type: does not use well-balanced diet: daily or most days caffeine: Yes Type: coffee eating out: 1-3 times/week during the past year weight has: increased > 10 lbs what type of physical activity do you participate in: walking frequency: 5-6 times per week duration: 30-45 minutes/day seatbelt use: always do you feel safe at home: Yes 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 OB Visit ALFA Calculator Estimated Delivery Date Method Current WG Current Estimate 09/10/24 LMP (Certain) 24w 4d Expected Delivery Route/Plan Labor Preferences- CB/BF classes: [] labor support person: [] labor intervention preferences: [] pain management options preferred: [] cut cord/dad catch: [] : [] PP control planned: [] discussed possible routes of delivery and associated risks: [] special requests: [] Specific Issue/Plans Covid status: [] Flu vaccine: [] Tdap vaccine: Rhogam: [] LARC form signed: [] Problem list reviewed and updated with the most current plan of care details and appropriate orders placed. Relevant counseling for the gestational age provided. Continue routine care and follow up unless otherwise noted in visit notes/problem list details Initial Weight: Not Recorded Date -???-???-???-???-???- ???-???-???-???-???-? ??-???- EGA Weight BP Urine Prot -???-???-???-???-???- ???-???-???-???-???-? ??-???- Glucose FHR FuHt Pres Dilation -???-???-???-???-???- ???-???-???-???-???-? ??-???- Effaced St Visit Note 02/04/24 -???-???-???-???-???- ???-???-???-???-???-? ??-???- 8w 5d 172 lb 121/80 -???-???-???-???-???- ???-???-???-???-???-? ??-???- 155 -???-???-???-???-???- ???-???-???-???-???-? ??-???- SM CRL 1.78c m cons with LMP small 5 mm subchorionic hematoma seen 03/06/24 -???-???-???-???-???- ???-???-???-???-???-? ??-???- 13w 1d 176 lb 114/73 Negative -???-???-???-???-???- ???-???-???-???-???-? ??-???- Negative 150 -???-???-???-???-???- ???-???-???-???-???-? ??-???- KW- no vb/cr amping. US ordered 04/06/24 -???-???-???-???-???- ???-???-???-???-???-? ??-???- 17w 4d 178 lb 112/68 Negative -???-???-???-???-???- ???-???-???-???-???-? ??-???- Negative 151 -???-???-???-???-???- ???-???-???-???-???-? ??-???- MH-No VB. No Flutters yet. Nausea and fatigue improved. MFM US scheduled 04/25/24 -???-???-???-???-???- ???-???-???-???-???-? ??-???- 20w 2d 184 lb 4 oz 112/72 Negative -???-???-???-???-???- ???-???-???-???-???-? ??-???- Negative 152 20 -???-???-???-???-???- ???-???-???-???-???-? ??-???- MH-No VB. G ood FM. MFM anatomy US today 05/25/24 -???-???-???-???-???- ???-???-???-???-???-? ??-???- 24w 4d 189 lb 8 oz 104/70 Negative -???-???-???-???-???- ???-???-???-???-???-? ??-???- Negative 149 24 -???-???-???-???-???- ???-???-???-???-???-? ??-???- JV- no lof, vaginal bleeding, or cramping. velamentous cord inse (more content not included)... Normal [facility] - Chemistry and C hemistry - challengeon 04-25-2024 Glucose Ql (U) Negative [facility] - Urinalysison Protein Ql (U) Negative [facility] Delivery Mgr Office Visit Reporton 04-25-2024 Delivery Mgr Office Visit Report [facility] [address], [address] [place] [address] OFFICE VISIT Date of Service: 04/25/24 MR#: [id number] Acct: [id number] Name: BRANDY WINKLER Rep #: [id number] : 1995 Provider: JULIA hicks Age/Sex: 28/F Location: [facility] [place] Status: Signed Intake Vital Signs 03/06/24 14:58 03/21/24 14:05 04/06/24 15:46 04/25/24 13:03 Height 5 ft 5 in 5 ft 5 in 5 ft 5 in 5 ft 5 in Weight: 184 lb 4 oz BMI 30.7 BP 112/72 Intake Visit Reasons: 20 week MFM anatomy @ 2 Chief Complaint: 20 Week OB Direct Care Provider Required: No Is patient in pain?: No Allergies No Known Allergies Allergy (Verified 04/25/24 13:02) Medications ???Medication ???Instructions ???Recorded ???Confirmed ???Type vitamin#30 30 mg iron-10 cap PO 01/28/24 04/25/24 History mg iron-folic acid 1 mg-omg3 capsule Last Menstrual Period: 12/05/23 Zika: Zika virus screening: Negative : Yes PFSH PFSH Medical History Pilonidal cyst Urinary frequency Dysuria Surgical History History of appendectomy Social History adopted: No household members: spouse current occupational status: 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: No pets and animals: Yes pets and animals: dog(s) history of recent travel: No sexually active: Yes Smoking Status: Never smoker alcohol intake: never substance use type: does not use well-balanced diet: daily or most days caffeine: Yes Type: coffee eating out: 1-3 times/week during the past year weight has: increased > 10 lbs what type of physical activity do you participate in: walking frequency: 5-6 times per week duration: 30-45 minutes/day seatbelt use: always do you feel safe at home: Yes 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 Elective abortions Hx Para 0 Spontaneous abortions Hx # Term Pregnancies Ectopic pregnancies Hx # Pregnancies Multiple births # of living children HPI 20 week MFM anatomy @ 2 Details: BRANDY WINKLER is a 28 year old who presents for routine OB visit. OB Visit ALFA Calculator Estimated Delivery Date Method Current WG Current Estimate 09/10/24 LMP (Certain) 20w 2d Expected Delivery Route/Plan Labor Preferences- CB/BF classes: [] labor support person: [] labor intervention preferences: [] pain management options preferred: [] cut cord/dad catch: [] : [] PP control planned: [] discussed possible routes of delivery and associated risks: [] special requests: [] Specific Issue/Plans Covid status: [] Flu vaccine: [] Tdap vaccine: Rhogam: [] LARC form signed: [] Problem list reviewed and updated with the most current plan of care details and appropriate orders placed. Relevant counseling for the gestational age provided. Continue routine care and follow up unless otherwise noted in visit notes/problem list details Initial Weight: Not Recorded Date -???-???-???-???-???- ???-???-???-???-???-? ??-???- EGA Weight BP Urine Prot -???-???-???-???-???- ???-???-???-???-???-? ??-???- Glucose FHR FuHt Pres Dilation -???-???-???-???-???- ???-???-???-???-???-? ??-???- Effaced St Visit Note 02/04/24 -???-???-???-???-???- ???-???-???-???-???-? ??-???- 8w 5d 172 lb 121/80 -???-???-???-???-???- ???-???-???-???-???-? ??-???- 155 -???-???-???-???-???- ???-???-???-???-???-? ??-???- SM CRL 1.78c m cons with LMP small 5 mm subchorionic hematoma seen 03/06/24 -???-???-???-???-???- ???-???-???-???-???-? ??-???- 13w 1d 176 lb 114/73 Negative -???-???-???-???-???- ???-???-???-???-???-? ??-???- Negative 150 -???-???-???-???-???- ???-???-???-???-???-? ??-???- KW- no vb/cr amping. US ordered 04/06/24 -???-???-???-???-???- ???-???-???-???-???-? ??-???- 17w 4d 178 lb 112/68 Negative -???-???-???-???-???- ???-???-???-???-???-? ??-???- Negative 151 -???-???-???-???-???- ???-???-???-???-???-? ??-???- MH-No VB. No Flutters yet. Nausea and fatigue improved. MFM US scheduled 04/25/24 -???-???-???-???-???- ???-???-???-???-???-? ??-???- 20w 2d 184 lb 4 oz 112/72 Negative -???-???-???-???-???- ???-???-???-???-???-? ??-???- Negative 152 20 -???-???-???-???-???- ???-???-???-???-???-? ??-???- -No VB. G ood FM. MFM anatomy US today ACOG First Trimester First Trimester: Desire for , Alcohol, Tobacco Cessation, Illicit/Recreational Drug/Substance Use, Intimate Partner Violence, Barriers to care, Unstable Housing, Communication Barriers, Environmental/Work Hazards, Anticipated Course of (more content not included)... Normal [facility] - Chemistry and C hemistry - challengeon 04-06-2024 Glucose Ql (U) Negative [facility] - Urinalysison Protein Ql (U) Negative [facility] Delivery Mgr Office Visit Reporton 04-06-2024 Delivery Mgr Office Visit Report [facility] [address], [address] [place] [address] OFFICE VISIT Date of Service: 04/06/24 MR#: [id number] Acct: [id number] Name: BRANDY WINKLER Rep #: [id number] : 1995 Provider: JULIA hicks Age/Sex: 28/F Location: [facility] [place] Status: Signed Intake Vital Signs 02/04/24 13:39 03/21/24 14:05 04/06/24 15:46 Height 5 ft 5 in 5 ft 5 in 5 ft 5 in Weight: 178 lb BMI 29.6 BP 112/68 Intake Visit Reasons: 16 WK OB Direct Care Provider Required: No Is patient in pain?: No Allergies No Known Allergies Allergy (Verified 04/06/24 15:47) Medications ???Medication ???Instructions ???Recorded ???Confirmed ???Type vitamin#30 30 mg iron-10 cap PO 01/28/24 04/06/24 History mg iron-folic acid 1 mg-omg3 capsule Last Menstrual Period: 12/05/23 Zika: Zika virus screening: Negative : Yes Have you fallen in the past year?: No PFSH PFSH Medical History Pilonidal cyst Urinary frequency Dysuria Surgical History History of appendectomy Social History adopted: No household members: spouse current occupational status: 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: No pets and animals: Yes pets and animals: dog(s) history of recent travel: No sexually active: Yes Smoking Status: Never smoker alcohol intake: never substance use type: does not use well-balanced diet: daily or most days caffeine: Yes Type: coffee eating out: 1-3 times/week during the past year weight has: increased > 10 lbs what type of physical activity do you participate in: walking frequency: 5-6 times per week duration: 30-45 minutes/day seatbelt use: always do you feel safe at home: Yes 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 OB Visit ALFA Calculator Estimated Delivery Date Method Current WG Current Estimate 09/10/24 LMP (Certain) 17w 4d Expected Delivery Route/Plan Labor Preferences- CB/BF classes: [] labor support person: [] labor intervention preferences: [] pain management options preferred: [] cut cord/dad catch: [] : [] PP control planned: [] discussed possible routes of delivery and associated risks: [] special requests: [] Specific Issue/Plans Covid status: [] Flu vaccine: [] Tdap vaccine: Rhogam: [] LARC form signed: [] Problem list reviewed and updated with the most current plan of care details and appropriate orders placed. Relevant counseling for the gestational age provided. Continue routine care and follow up unless otherwise noted in visit notes/problem list details Initial Weight: Not Recorded Date -???-???-???-???-???- ???-???-???-???-???-? ??-???- EGA Weight BP Urine Prot -???-???-???-???-???- ???-???-???-???-???-? ??-???- Glucose FHR FuHt Pres Dilation -???-???-???-???-???- ???-???-???-???-???-? ??-???- Effaced St Visit Note 02/04/24 -???-???-???-???-???- ???-???-???-???-???-? ??-???- 8w 5d 172 lb 121/80 -???-???-???-???-???- ???-???-???-???-???-? ??-???- 155 -???-???-???-???-???- ???-???-???-???-???-? ??-???- SM CRL 1.78c m cons with LMP small 5 mm subchorionic hematoma seen 03/06/24 -???-???-???-???-???- ???-???-???-???-???-? ??-???- 13w 1d 176 lb 114/73 Negative -???-???-???-???-???- ???-???-???-???-???-? ??-???- Negative 150 -???-???-???-???-???- ???-???-???-???-???-? ??-???- KW- no vb/cr amping. US ordered 04/06/24 -???-???-???-???-???- ???-???-???-???-???-? ??-???- 17w 4d 178 lb 112/68 Negative -???-???-???-???-???- ???-???-???-???-???-? ??-???- Negative 151 -???-???-???-???-???- ???-???-???-???-???-? ??-???- MH-No VB. No Flutters yet. Nausea and fatigue improved. MFM US scheduled ACOG First Trimester First Trimester: Desire for , Alcohol, Tobacco Cessation, Illicit/Recreational Drug/Substance Use, Intimate Partner Violence, Barriers to care, Unstable Housing, Communication Barriers, Environmental/Work Hazards, Anticipated Course of Care, Toxoplasmosis Precations, Use of Any medications, Sexual activity, Exercise, Dental Care, Sauna/Hot tub use, Seat Belt use, Childbirth classes/Hospital facilities, , Travel, Indications for Ultrasound and Screening for Aneuploidy ROS Const Reports system reviewed and no additional complaints, ex (more content not included)... Normal [facility] - Chemistry and C hemistry - challengeon 03-06-2024 Glucose Ql (U) Negative [facility] - Urinalysison Protein Ql (U) Negative [facility] Delivery Mgr Office Visit Reporton 03-06-2024 Delivery Mgr Office Visit Report [facility]'s [address], [address] [place] [address] OFFICE VISIT Date of Service: 03/06/24 MR#: [id number] Acct: [id number] Name: PETERSONBRANDY CHAMBERS Rep #: [id number] : 1995 Provider: JOHNNY Estrada ams Age/Sex: 28/F Location: [facility] [place] Status: Signed Intake Vital Signs 08/20/22 15:23 02/04/24 13:39 03/06/24 14:56 03/06/24 14:58 Height 5 ft 5 in 5 ft 5 in 5 ft 5 in 5 ft 5 in Weight: 176 lb BMI 29.2 BP 114/73 Intake Visit Reasons: 12wk OB Direct Care Provider Required: No Is patient in pain?: No Allergies No Known Allergies Allergy (Verified 03/06/24 14:57) Medications ???Medication ???Instructions ???Recorded ???Confirmed ???Type vitamin#30 30 mg iron-10 cap PO 01/28/24 03/06/24 History mg iron-folic acid 1 mg-omg3 capsule Last Menstrual Period: 12/05/23 Zika: Zika virus screening: Negative : Yes Have you fallen in the past year?: No PFSH PFSH Medical History Pilonidal cyst Urinary frequency Dysuria Surgical History History of appendectomy Social History adopted: No household members: spouse current occupational status: 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: No pets and animals: Yes pets and animals: dog(s) history of recent travel: No sexually active: Yes Smoking Status: Never smoker alcohol intake: never substance use type: does not use well-balanced diet: daily or most days caffeine: Yes Type: coffee eating out: 1-3 times/week during the past year weight has: increased > 10 lbs what type of physical activity do you participate in: walking frequency: 5-6 times per week duration: 30-45 minutes/day seatbelt use: always do you feel safe at home: Yes 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 OB Visit ALFA Calculator Estimated Delivery Date Method Current WG Current Estimate 09/10/24 LMP (Certain) 13w 1d Expected Delivery Route/Plan Labor Preferences- CB/BF classes: [] labor support person: [] labor intervention preferences: [] pain management options preferred: [] cut cord/dad catch: [] : [] PP control planned: [] discussed possible routes of delivery and associated risks: [] special requests: [] Specific Issue/Plans Covid status: [] Flu vaccine: [] Tdap vaccine: Rhogam: [] LARC form signed: [] Problem list reviewed and updated with the most current plan of care details and appropriate orders placed. Relevant counseling for the gestational age provided. Continue routine care and follow up unless otherwise noted in visit notes/problem list details Initial Weight: Not Recorded Date -???-???-???-???-???- ???-???-???-???-???-? ??-???- EGA Weight BP Urine Prot -???-???-???-???-???- ???-???-???-???-???-? ??-???- Glucose FHR FuHt Pres Dilation -???-???-???-???-???- ???-???-???-???-???-? ??-???- Effaced St Visit Note 02/04/24 -???-???-???-???-???- ???-???-???-???-???-? ??-???- 8w 5d 172 lb 121/80 -???-???-???-???-???- ???-???-???-???-???-? ??-???- 155 -???-???-???-???-???- ???-???-???-???-???-? ??-???- CRL 1.78c m cons with LMP small 5 mm subchorionic hematoma seen 03/06/24 -???-???-???-???-???- ???-???-???-???-???-? ??-???- 13w 1d 176 lb 114/73 Negative -???-???-???-???-???- ???-???-???-???-???-? ??-???- Negative 150 -???-???-???-???-???- ???-???-???-???-???-? ??-???- KW- no vb/cr amping. US ordered ACOG First Trimester First Trimester: Desire for , Alcohol, Tobacco Cessation, Illicit/Recreational Drug/Substance Use, Intimate Partner Violence, Barriers to care, Unstable Housing, Communication Barriers, Environmental/Work Hazards, Anticipated Course of Care, Toxoplasmosis Precations, Use of Any medications, Sexual activity, Exercise, Dental Care, Sauna/Hot tub use, Seat Belt use, Childbirth classes/Hospital facilities, , Travel, Indications for Ultrasound and Screening for Aneuploidy ROS Const Reports system reviewed and no additional complaints, except as documented Eyes Reports system reviewed and no additional complaints, except as documented ENT Reports system reviewed and no additional complaints, except as documented Card Reports system reviewed and no additional complaints, except as docu (more content not included)... Normal [facility] Chlamydia/GC RIC aptimaon CHLAMY,NUC ACID Negative Normal Negative [facility] Comment on above: Performed By: #### L 7000.1800, M100.2200 ####[facility] [address] [place], [address] GC BY NUC ACID Negative Normal Negative [facility] Comment on above: Result Comment: Perf ormed at: =G - [facility] [address] [place] [id number] Erp Implementation Consultant: Allison Kathleen MD, Phone: [phone] Performed By: #### L 7000.1800, M100.2200 ####[facility] [address] [place], [address] Urine Cultureon 02-06-2024 URC Below infection level. Mixed Gram Positive Organisms [place] Count 1000-10,000 MIXC Mixed contaminants. Submit a new specimen if indicated. Normal [facility] Comment on above: Performed By: #### L 7000.1800, M100.2200 ####[facility] [address] [place], [address] CBC W/Diff, Automatedon 01-11 Absolute Lymph 2.23 X10 3/uL Normal 0.83-4.51 [facility] Comment on above: Performed By: #### L 3890.6005, L509.8000, L3890.6100, L3890.6300, L509.4005, BTS, L100.0100 ####[facility] [address] [place], [address] Absolute Neut 7.2 X10 3/uL Normal 2.0-7.7 [facility] Comment on above: Performed By: #### L 3890.6005, L509.8000, L3890.6100, L3890.6300, L509.4005, BTS, L100.0100 ####[facility] [address] [place], [address] Basophils/100 WBC (Bld) 0.4 % Normal 0-1 [facility] Comment on above: Performed By: #### L 3890.6005, L509.8000, L3890.6100, L3890.6300, L509.4005, BTS, L100.0100 ####[facility] [address] [place], [address] Eosinophils/100 WBC (Bld) 3.6 % Normal 0-5 [facility] Comment on above: Performed By: #### L 3890.6005, L509.8000, L3890.6100, L3890.6300, L509.4005, BTS, L100.0100 ####[facility] [address] [place], [address] Erythrocyte distribution width (RBC) [Ratio] 12.9 % Normal 11.6-14.6 [facility] Comment on above: Performed By: #### L 3890.6005, L509.8000, L3890.6100, L3890.6300, L509.4005, BTS, L100.0100 ####[facility] [address] [place], [address] Hematocrit (Bld) [Volume fraction] 43.0 % Normal 37-47 [facility] Comment on above: Performed By: #### L 3890.6005, L509.8000, L3890.6100, L3890.6300, L509.4005, BTS, L100.0100 ####[facility] [address] [place], [address] Hemoglobin (Bld) [Mass/Vol] 14.3 g/dL Normal 12.0-15.0 [facility] Comment on above: Performed By: #### L 3890.6005, L509.8000, L3890.6100, L3890.6300, L509.4005, BTS, L100.0100 ####[facility] [address] [place], [address] IG% 0.400 Normal 0.0-0.9 [facility] Comment on above: Result Comment: IG% - Immature Granulocytes (promyelocytes, myelocytes and metamyelocytes) > 1% indicates that a LEFT SHIFT is Present. Performed By: #### L 3890.6005, L509.8000, L3890.6100, L3890.6300, L509.4005, BTS, L100.0100 ####[facility] [address] [place], [address] Lymphocytes/100 WBC (Bld) 20.6 % Normal 19-41 [facility] Comment on above: Performed By: #### L 3890.6005, L509.8000, L3890.6100, L3890.6300, L509.4005, BTS, L100.0100 ####[facility] [address] [place], [address] MCH (RBC) [Entitic mass] 28.8 pg Normal 27.0-32.0 [facility] Comment on above: Performed By: #### L 3890.6005, L509.8000, L3890.6100, L3890.6300, L509.4005, BTS, L100.0100 ####[facility] [address] [place], [address] MCHC (RBC) [Mass/Vol] 33.3 g/dL Normal 32-36 [facility] Comment on above: Performed By: #### L 3890.6005, L509.8000, L3890.6100, L3890.6300, L509.4005, BTS, L100.0100 ####[facility] [address] [place], [address] MCV (RBC) [Entitic vol] 86.5 fL Normal 81-99 [facility] Comment on above: Performed By: #### L 3890.6005, L509.8000, L3890.6100, L3890.6300, L509.4005, BTS, L100.0100 ####[facility] [address] [place], [address] Monocytes/100 WBC (Bld) 8.5 % Normal 0-10 [facility] Comment on above: Performed By: #### L 3890.6005, L509.8000, L3890.6100, L3890.6300, L509.4005, BTS, L100.0100 ####[facility] [address] [place], [address] Neutrophils/100 WBC (Bld) 66.5 % Normal 47-70 [facility] Comment on above: Performed By: #### L 3890.6005, L509.8000, L3890.6100, L3890.6300, L509.4005, BTS, L100.0100 ####[facility] [address] [place], [address] Nucleated RBC (Bld) [#/Vol] 0 10*3/uL Normal 0-5 [facility] Comment on above: Performed By: #### L 3890.6005, L509.8000, L3890.6100, L3890.6300, L509.4005, BTS, L100.0100 ####[facility] [address] [place], [address] Platelet mean volume (Bld) [Entitic vol] 9.2 fL Normal 6.2-12.0 [facility] Comment on above: Performed By: #### L 3890.6005, L509.8000, L3890.6100, L3890.6300, L509.4005, BTS, L100.0100 ####[facility] [address] [place], [address] Platelets (Bld) [#/Vol] 374 10*3/uL Normal 150-450 [facility] Comment on above: Performed By: #### L 3890.6005, L509.8000, L3890.6100, L3890.6300, L509.4005, BTS, L100.0100 ####[facility] [address] [place], [address] RBC (Bld) [#/Vol] 4.97 10*6/uL Normal 4.2-5.4 [facility] Comment on above: Performed By: #### L 3890.6005, L509.8000, L3890.6100, L3890.6300, L509.4005, BTS, L100.0100 ####[facility] [address] [place], [address] RDW SD 40.1 fl Normal 35.1-43.9 [facility] Comment on above: Performed By: #### L 3890.6005, L509.8000, L3890.6100, L3890.6300, L509.4005, BTS, L100.0100 ####[facility] [address] [place], [place], [id number] WBC (Bld) [#/Vol] 10.9 10*3/uL Normal 4.4-11.0 [facility] Comment on above: Performed By: #### L 3890.6005, L509.8000, L3890.6100, L3890.6300, L509.4005, BTS, L100.0100 ####[facility] [address] [place], [place], [id number] HIV - WCHon 02-04-2024 HIV Non-Reactive Normal Nonreactive [facility] Comment on above: Order Comment: Reaso n for Exam: Performed By: #### L 3890.6005, L509.8000, L3890.6100, L3890.6300, L509.4005, BTS, L100.0100 ####[facility] [address] [place], [address] Hepatitis B Surface Antigeno n 02-04-2024 HEP B Surf Ag Non-Reactive Normal Nonreactive [facility] Comment on above: Order Comment: Reaso n for Exam: Performed By: #### L 3890.6005, L509.8000, L3890.6100, L3890.6300, L509.4005, BTS, L100.0100 ####[facility] [address] [place], [place], [address] Hepatitis C Antibodyon 02-03 Hepatitis C AB Non-Reactive Normal Nonreactive [facility] Comment on above: Order Comment: Reaso n for Exam: Result Comment: Non Reactive: < 0.8 Equivocal: >/= 0.8 to < 1.0 Reactive: >/= 1.0 The CDC requires that a reactive/equivocal HCV antibody result be sent out for confirmation. HCV Quant by PCR testing. Performed By: #### L 3890.6005, L509.8000, L3890.6100, L3890.6300, L509.4005, BTS, L100.0100 ####[facility] [address] [place], [place], [address] L509.8000on 02-04-2024 Syphilis Abs Non-Reactive Normal [facility] Comment on above: Order Comment: Reaso n for Exam: Performed By: #### L 3890.6005, L509.8000, L3890.6100, L3890.6300, L509.4005, BTS, L100.0100 ####[facility] [address] [place], [place], [address] Delivery Mgr Office Visit Reporton 02-04-2024 Delivery Mgr Office Visit Report [facility] [address], [address] [place] [address] OFFICE VISIT Date of Service: 02/04/24 MR#: [id number] Acct: [id number] Name: BRANDY WINKLER Rep #: [id number] : 1995 Provider: Dr. Mindy llanos MD Age/Sex: 28/F Location: [facility] Status: Signed Intake Vital Signs 08/20/22 15:23 02/04/24 13:37 02/04/24 13:39 Height 5 ft 5 in 5 ft 5 in 5 ft 5 in Weight: 172 lb BMI 28.6 BP 121/80 H Intake Visit Reasons: New OB, LMP 12/05/23, ALFA 09/10/24 Direct Care Provider Required: No Is patient in pain?: No Feel stressed/tense/nervou s/anxious/difficulty sleeping: not at all Allergies No Known Allergies Allergy (Verified 02/04/24 13:37) Medications ???Medication ???Instructions ???Recorded ???Confirmed ???Type vitamin#30 30 mg iron-10 cap PO 01/28/24 02/04/24 History mg iron-folic acid 1 mg-omg3 capsule Last Menstrual Period: 12/05/23 Zika: Zika virus screening: Negative : No Have you fallen in the past year?: No PFSH PFSH Medical History Pilonidal cyst Urinary frequency Dysuria Surgical History History of appendectomy Social History adopted: No household members: spouse service: No current occupational status: 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: No pets and animals: Yes pets and animals: dog(s) history of recent travel: No sexually active: Yes Smoking Status: Never smoker alcohol intake: never substance use type: does not use well-balanced diet: daily or most days caffeine: Yes Type: coffee eating out: 1-3 times/week during the past year weight has: increased > 10 lbs what type of physical activity do you participate in: walking frequency: 5-6 times per week duration: 30-45 minutes/day seatbelt use: always do you feel safe at home: Yes 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 OB Visit ALFA Calculator Estimated Delivery Date Method Current WG Current Estimate 09/10/24 LMP (Certain) 8w 5d Estimated Due Date: 09/10/24 Expected Delivery Route/Plan Labor Preferences- CB/BF classes: [] labor support person: [] labor intervention preferences: [] pain management options preferred: [] cut cord/dad catch: [] : [] PP control planned: [] discussed possible routes of delivery and associated risks: [] special requests: [] Specific Issue/Plans Covid status: [] Flu vaccine: [] Tdap vaccine: Rhogam: [] LARC form signed: [] Problem list reviewed and updated with the most current plan of care details and appropriate orders placed. Relevant counseling for the gestational age provided. Continue routine care and follow up unless otherwise noted in visit notes/problem list details Initial Weight: Not Recorded Date -???-???-???-???-???- ???-???-???-???-???-? ??-???- EGA Weight BP Urine Prot -???-???-???-???-???- ???-???-???-???-???-? ??-???- Glucose FHR FuHt Pres Dilation -???-???-???-???-???- ???-???-???-???-???-? ??-???- Effaced St Visit Note 02/04/24 -???-???-???-???-???- ???-???-???-???-???-? ??-???- 8w 5d 172 lb 121/80 -???-???-???-???-???- ???-???-???-???-???-? ??-???- 155 -???-???-???-???-???- ???-???-???-???-???-? ??-???- SM CRL 1.78c m cons with LMP small 5 mm subchorionic hematoma seen Menstrual History Last Menstrual Period: 12/05/23 Reported LMP: definite Normal amount/duration: Yes Frequency in days: 28 On hormonal BC at conception: No hCG+: 01/06/24 Antepartum Record Genetic Screening: Congenital Heart Defect: Other, Neural Tube Defect: Other, Hemoglobinopathy Or Carrier: Other, Cystic Fibrosis: Other, Chromosome Abnormality: Other, Wilver-Sachs: Other, Hemophilia: Other, Intellectual Disability/Autism: Other, Recurrent Loss/Stillbirth: Other, Other Structural Defect: Other, Other Genetic Disease: Other and Maternal Metabolic Disorder: Other Infection History: Live with someone with TB or Exposed to TB: No, Patient or Partner has history of Genital Herpes: No, Rash or Viral illness since last mentrual period: No, Prior GBS-Infected child: No, History of STD: No, HIV Infection: No, History of Hepatitis: No, Recent travel outside of [place]: No, Concern for hepatitis exposure: No, Varicella immune: Yes (Had (more content not included)... Normal [facility] Rubella IgGon 02-04-2024 Rubella IgG Reactive Normal Nonreactive [facility] Comment on above: Order Comment: Reaso n for Exam: Result Comment: Anti body Results Interpretation of Immune Status Non Reactive Presumed Non-Immune Equivocal Equivocal Reactive Presumed Immune Performed By: #### L 3890.6005, L509.8000, L3890.6100, L3890.6300, L509.4005, BTS, L100.0100 ####[facility] [address] [place], [place], [address] Type AND Screenon 02-04-2024 ABO and Rh group Nom (Bld) Blood group A Rh(D) positive Normal [facility] Comment on above: Order Comment: PN Performed By: #### L 3890.6005, L509.8000, L3890.6100, L3890.6300, L509.4005, BTS, L100.0100 ####[facility] [address] [place], [place], [id number] Vital Signs Date Time Vital Sign Value Performing Clinician Bill renee 10-26-2024 15:58-0400 Body height 165.[address] Tacho Avila DO Work Phone: [facility] 10-26-2024 15:58-0400 Body mass index (BMI) [Ratio] 31.4 kg/m2 Dr. Tacho Avila DO Work Phone: [facility] 10-26-2024 15:58-0400 Body weight 85.[address] Tacho Avila DO Work Phone: [facility] 10-26-2024 15:58-0400 Diastolic blood pressure 76 mm[Hg] Dr. Tacho Avila DO Work Phone: [facility] 10-26-2024 15:58-0400 Systolic blood pressure 117 mm[Hg] Dr. Tacho Avila DO Work Phone: [facility] 09-09-2024 16:51-0400 Body temperature 98.3 [degF] Dr. Tacho Avila DO Work Phone: [facility] 09-09-2024 16:51-0400 Diastolic blood pressure 87 mm[Hg] Dr. Tacho Avila DO Work Phone: [facility] 09-09-2024 16:51-0400 Heart rate 120 /min Dr. Tacho Avila DO Work Phone: [facility] 09-09-2024 16:51-0400 Respiratory rate 16 /min Dr. Tacho Avila DO Work Phone: [facility] 09-09-2024 16:51-0400 SaO2% (BldA) [Mass fraction] 97 % Dr. Tacho Avila DO Work Phone: [facility] 09-09-2024 16:51-0400 Systolic blood pressure 116 mm[Hg] Dr. Tacho Avila DO Work Phone: [facility] 09-07-2024 03:52-0400 Body height 165.[address] Tacho Avila DO Work Phone: [facility] 09-07-2024 03:52-0400 Body mass index (BMI) [Ratio] 36.1 kg/m2 Dr. Tacho Avila DO Work Phone: [facility] 09-07-2024 03:52-0400 Body weight 98.[address] Tacho Avila DO Work Phone: [facility] 08-31-2024 09:19-0400 Body mass index (BMI) [Ratio] 35.3 kg/m2 Dr. Tacho Avila DO Work Phone: [facility] 08-31-2024 09:19-0400 Body weight 96.[address] Tacho Avila DO Work Phone: [facility] 08-31-2024 09:19-0400 Diastolic blood pressure 74 mm[Hg] Dr. Tacho Avila DO Work Phone: [facility] 08-31-2024 09:19-0400 Systolic blood pressure 109 mm[Hg] Dr. Tacho Avila DO Work Phone: [facility] 08-25-2024 14:39-0400 Body height 165.[address] Tacho Avila DO Work Phone: [facility] 08-25-2024 14:39-0400 Body mass index (BMI) [Ratio] 34.9 kg/m2 Dr. Tacho Avila DO Work Phone: [facility] 08-25-2024 14:39-0400 Body weight 95.[address] Tacho Avila DO Work Phone: [facility] 08-25-2024 14:39-0400 Diastolic blood pressure 74 mm[Hg] Dr. Tacho Avila DO Work Phone: [facility] 08-25-2024 14:39-0400 Systolic blood pressure 113 mm[Hg] Dr. Tacho Avila DO Work Phone: [facility] 08-14-2024 13:59-0400 Body height 165.[address] Tacho Avila DO Work Phone: [facility] 08-14-2024 13:59-0400 Body mass index (BMI) [Ratio] 34.7 kg/m2 Dr. Tacho Avila DO Work Phone: [facility] 08-14-2024 13:59-0400 Body weight 94.[address] Tacho Avila DO Work Phone: [facility] 08-14-2024 13:59-0400 Diastolic blood pressure 69 mm[Hg] Dr. Tacho Avila DO Work Phone: [facility] 08-14-2024 13:59-0400 Systolic blood pressure 105 mm[Hg] Dr. Tacho Avila DO Work Phone: [facility] 08-04-2024 13:50-0400 Body mass index (BMI) [Ratio] 34.4 kg/m2 Dr. Tacho Avila DO Work Phone: [facility] 08-04-2024 13:50-0400 Body weight 94.[address] Tacho Avila DO Work Phone: [facility] 08-04-2024 13:50-0400 Diastolic blood pressure 72 mm[Hg] Dr. Tacho Avila DO Work Phone: [facility] 08-04-2024 13:50-0400 Systolic blood pressure 109 mm[Hg] Dr. Tacho Avila DO Work Phone: [facility] 07-18-2024 14:34-0400 Body mass index (BMI) [Ratio] 34 kg/m2 Dr. Tacho Avila DO Work Phone: [facility] 07-18-2024 14:34-0400 Body weight 92.[address] Tacho Avila DO Work Phone: [facility] 07-18-2024 14:34-0400 Diastolic blood pressure 72 mm[Hg] Dr. Tacho Avila DO Work Phone: [facility] 07-18-2024 14:34-0400 Systolic blood pressure 113 mm[Hg] Dr. Tacho Avila DO Work Phone: [facility] 07-04-2024 15:28-0400 Body mass index (BMI) [Ratio] 33.4 kg/m2 Dr. Tacho Avila DO Work Phone: [facility] 07-04-2024 15:28-0400 Body weight 91.[address] Tacho Avila DO Work Phone: [facility] 07-04-2024 15:28-0400 Diastolic blood pressure 83 mm[Hg] Dr. Tacho Avila DO Work Phone: [facility] 07-04-2024 15:28-0400 Systolic blood pressure 116 mm[Hg] Dr. Tacho Avila DO Work Phone: [facility] 06-21-2024 14:57-0400 Body height 165.[address] Tacho Avila DO Work Phone: [facility] 06-21-2024 14:57-0400 Body mass index (BMI) [Ratio] 32.8 kg/m2 Dr. Tacho Avila DO Work Phone: [facility] 06-21-2024 14:57-0400 Body weight 89.[address] Tacho Avila DO Work Phone: [facility] 06-21-2024 14:57-0400 Diastolic blood pressure 82 mm[Hg] Dr. Tacho Avila DO Work Phone: [facility] 06-21-2024 14:57-0400 Systolic blood pressure 138 mm[Hg] Dr. Tacho Avila DO Work Phone: [facility] 05-25-2024 15:06-0500 Body mass index (BMI) [Ratio] 31.5 kg/m2 Dr. Tacho Avila DO Work Phone: [facility] 05-25-2024 15:06-0500 Body weight 85.[address] Tacho Avila DO Work Phone: [facility] 05-25-2024 15:06-0500 Diastolic blood pressure 70 mm[Hg] Dr. Tacho Avila DO Work Phone: [facility] 05-25-2024 15:06-0500 Systolic blood pressure 104 mm[Hg] Dr. Tacho Avila DO Work Phone: [facility] 04-25-2024 13:03-0500 Body mass index (BMI) [Ratio] 30.7 kg/m2 Dr. Tacho Avila DO Work Phone: [facility] 04-25-2024 13:03-0500 Body weight 83.[address] Tacho Avila DO Work Phone: [facility] 04-25-2024 13:03-0500 Diastolic blood pressure 72 mm[Hg] Dr. Tacho Avila DO Work Phone: [facility] 04-25-2024 13:03-0500 Systolic blood pressure 112 mm[Hg] Dr. Tacho Avila DO Work Phone: [facility] 04-06-2024 15:46-0500 Body mass index (BMI) [Ratio] 29.6 kg/m2 Dr. Tacho Avila DO Work Phone: [facility] 04-06-2024 15:46-0500 Body weight 80.[address] Tacho Avila DO Work Phone: [facility] 04-06-2024 15:46-0500 Diastolic blood pressure 68 mm[Hg] Dr. Tacho Avila DO Work Phone: [facility] 04-06-2024 15:46-0500 Systolic blood pressure 112 mm[Hg] Dr. Tacho Avila DO Work Phone: [facility] 03-06-2024 14:56-0500 Body mass index (BMI) [Ratio] 29.2 kg/m2 Dr. Tacho Avila DO Work Phone: [facility] 03-06-2024 14:56-0500 Body weight 79.[address] Tacho Avila DO Work Phone: [facility] 03-06-2024 14:56-0500 Diastolic blood pressure 73 mm[Hg] Dr. Tacho Avila DO Work Phone: [facility] 03-06-2024 14:56-0500 Systolic blood pressure 114 mm[Hg] Dr. Tacho Avila DO Work Phone: [facility] Encounters Encounter Date Encounter Type Care Provider Facility Start: 10-26-2024 End: 10-26-[address] Joann Tang DO -[facility] Work Phone: Start: 10-26-2024 End: 10-26-2024 ambulatory [facility] Facility:[facility] Start: 09-09-2024 Non-patient / Non-visit Dr. Nelly Michaels MD -[facility] Start: 09-09-2024 ambulatory [facility] Start: 09-07-2024 Non-patient / Non-visit Dr. Nelly Michaels MD -[facility] Start: 09-07-2024 ambulatory [facility] Facility: [facility] Start: 09-07-2024 End: 09-09-2024 Evaluation and management of inpatient Dr. Mindy Michaels MD -[facility] Work Phone: Start: 08-31-2024 End: 08-31-[address] Mindy Michaels MD -[facility] Work Phone: Start: 08-31-2024 End: 08-31-2024 ambulatory Mindy Michaels Facility:[facility] Start: 08-25-2024 End: 08-25-[address] Tacho Avila DO Work Phone: [facility] Work Phone: Start: 08-25-2024 End: 08-25-[address] Mindy Michaels MD -Laboratory Specimen Work Phone: Start: 08-25-2024 End: 08-25-[address] Mindy Michaels MD -[facility] Work Phone: Start: 08-25-2024 End: 08-25-[address] Tacho Avila DO Work Phone: [facility] Work Phone: Start: 08-25-2024 End: 08-25-2024 ambulatory Tacho Avila Facility:[facility] Start: 08-17-2024 End: 08-17-2024 ambulatory [place] Lloyd [facility] Start: 08-14-2024 End: 08-14-[address] Tacho Avila DO Work Phone: [facility] Work Phone: Start: 08-14-2024 End: 08-14-[address] Joann Tang DO -Laboratory, Specimen Work Phone: Start: 08-14-2024 End: 08-14-[address] Joann Tang DO -[facility] Work Phone: Start: 08-14-2024 End: 08-14-2024 ambulatory Joann Tang Facility:[facility] Start: 08-14-2024 End: 08-14-2024 ambulatory Joann Tang Facility:[facility] Start: 08-04-2024 End: 08-04-2024 Patient encounter procedure Rani Ridley CNM -[facility] Work Phone: Start: 08-04-2024 End: 08-04-2024 ambulatory Rani Ridley Facility:[facility] Start: 07-18-2024 End: 07-18-[address] Mindy Michaels MD -[facility] Work Phone: Start: 07-18-2024 End: 07-18-2024 ambulatory Tacho Avila Facility:[facility] Start: 07-18-2024 End: 07-18-[facility]: 07-04-2024 End: 07-04-2024 Patient encounter procedure Ayana Valencia CNM -[facility] Work Phone: Start: 07-04-2024 End: 07-04-2024 ambulatory Tacho Avila Facility:[facility] Start: 06-22-2024 End: 06-22-[address] Tacho Avila DO Work Phone: [facility] Work Phone: Start: 06-22-2024 End: 06-22-[address] Joann Castro, [facility] Start: 06-21-2024 End: 06-21-[address] Mindy Michaels MD -[facility] Work Phone: Start: 06-21-2024 End: 06-22-2024 ambulatory Joann Tang Facility:[facility] Start: 06-20-2024 End: 06-20-2024 ambulatory [facility] Start: 05-25-2024 End: 05-25-[address] Joann Tang DO -[facility] Work Phone: Start: 05-25-2024 End: 05-25-2024 ambulatory Tacho Avila Facility:[facility] Start: 04-25-2024 End: 04-25-2024 Patient encounter procedure Geovanni DUMONT -[facility] Work Phone: Start: 04-25-2024 End: 04-25-2024 ambulatory AYANA VALENCIA [facility] Start: 04-06-2024 End: 04-06-2024 Patient encounter procedure Geovanni DUMONT -[facility] Work Phone: Start: 04-06-2024 End: 04-06-2024 ambulatory Tacho Avila Facility:[facility] Start: 03-06-2024 End: 03-06-2024 Patient encounter procedure Ayana Valencia [facility] Work Phone: Start: 03-06-2024 End: 03-06-2024 ambulatory Tacho Margarita Facility:[facility] Start: 02-04-2024 End: 02-04-2024 ambulatory Tacho HahnMargarita Facility:[facility] Start: 02-04-2024 End: 02-04-2024 ambulatory Tacho [facility] Facility:[facility] Start: 01-28-2024 ambulatory Tacho [facility] Facility: [facility] Start: 09-13-2018 Encounter for genera l adult medical examination without abnormal findings [facility] Start: 09-13-2018 End: 09-13-2018 Patient encounter procedure [facility] Start: 02-04-2018 End: 02-04-2018 Patient encounter procedure [facility] Encounter for genera l adult medical examination without abnormal findings [facility] Procedures Date Procedure Procedure Detail Performing Clinician Start: 09-07-2024 Serologic test for syphilis Dr. Tacho Avila DO Work Phone: Start: 09-07-2024 Measurement of pH in vaginal fluid specimen using nitrazine yellow for detection of rupture of amniotic membrane Dr. Tacho Avila DO Work Phone: Comment on above: Amniotic fluid prese nt indicates rupture of Membranes. RESULTS CALLED TO SARAI WATERS 09/07/24 0432 Jairon Padgett.REPORT READ BACK BY SAME . Start: 08-25-2024 Gram stain microscopy Mathew Avila DO Work Phone: Start: 08-25-[address] Tacho Avila DO Work Phone: Start: 08-14-2024 Beta-hemolytic Streptococcus culture Dr. Tacho Avila DO Work Phone: Start: 06-22-2024 Serologic test for syphilis Dr. Tacho Avila DO Work Phone: History of appendectomy S/P appendectomy Dr. Tacho Avila DO Work Phone: Comment on above: Age 11 Plan of Treatment Date Care Activity Detail Author Start: 09-09-2024 Patient discharge [facility] Start: 09-08-2024 Administration of medication [facility] Start: 09-08-2024 Application of ice c ollar, cap or bag [facility] Start: 09-08-2024 Catheterization of vein [facility] Start: 09-08-2024 Introduction of urin janae catheter [facility] Start: 09-08-2024 Measuring intake and output [facility] Start: 09-08-2024 Notification of physician [facility] Start: 09-08-2024 Procedure discontinued [facility] Start: 09-08-2024 Provision of activit y privileges [facility] Start: 09-08-2024 Vital signs measurements [facility] Start: 09-08-2024 End: 09-08-2024 [facility] Start: 09-08-2024 Documentation procedure [facility] Start: 09-07-2024 Admission procedure [facility] Patient Education After a Vagina l Delivery (WP) [facility] Work Phone: Patient referral [facility] Work Phone: Source specific culture [facility] [place] Payers Date Payer Category Payer Unknown [id number] 2024 Self-pay 2024 Unknown [id number] 1995 Unknown [id number] 2.. 840.1.381488.3.579.2.479 1994 Unknown [id number] 2.. 840.1.569269.3.579.2.479 1994 Unknown [id number] 2.. 840.1.691301.3.579.2.479 1994 Unknown [id number] 2.. 840.1.552980.3.579.2.479 Unknown [employer] [id number] Unknown [id number] 2.16.8 40.1.437935.3.579.2.462 Unknown [id number] 2.16.8 40.1.167867.3.579.2.462 Unknown [id number] 2.16.8 40.1.090809.3.579.2.462 Unknown [id number] 2.16.8 40.1.761951.3.579.2.462 Unknown [id number] 2.16.8 40.1.638303.3.579.2.462 Unknown [id number] 2.16.8 40.1.273007.3.579.2.462 Unknown [id number] 2.16.8 40.1.288010.3.579.2.462 Unknown [id number] 2.16.8 40.1.954179.3.579.2.462 Unknown [id number] 2.16.8 40.1.807107.3.579.2.462 Unknown [id number] 2.16.8 40.1.728973.3.579.2.462 Unknown [id number] 2.16.8 40.1.848989.3.579.2.462 Unknown [id number] 2.16.8 40.1.540202.3.579.2.462 Unknown [id number] 2.16.8 40.1.498906.3.579.2.462 Unknown [id number] 2.16.8 40.1.082282.3.579.2.462 Unknown [id number] 2.16.8 40.1.037496.3.579.2.462 Unknown [id number] 2.16.8 40.1.942534.3.579.2.462 Unknown [id number] 2.16.8 40.1.815716.3.579.2.462 Unknown [id number] 2.16.8 40.1.112558.3.579.2.462 Unknown [id number] 2.16.8 40.1.884045.3.579.2.462 Unknown [id number] 2.16.8 40.1.358070.3.579.2.462 Unknown [id number] 2.16.8 40.1.056902.3.579.2.462 Unknown [id number] 2.16.8 40.1.482196.3.579.2.462 Social History Date Type Detail Facility Start: 03-21-2024 End: 09-14-2024 Tobacco smoking status NHIS Never smoked tobacco (finding) [facility] Start: 07-01-2024 Sex Female (finding) [facility] Start: 1995 Sex Assigned At Female W [facility] Patient currentl y [facility] Goals Date Patient Goal Desired Activity /State Clinical Notes 03-06-2024 to 09-09-2024 Note Date & Type Note Facility 09-09-2024 Progress note [facility] 09-09-2024 Progress note Note Date/Time September 09, 2024 5:20pm [facility] Medical Records Department [address] [place] [address] Progress Note - OBGYN 09/09/24 1022 MR#: [id number] Acct: [id number] Name: BRANDY WINKLER Rep #:[id number] : 1995 29 From: Mindy dumas MD PCP: Dr. Tacho Avila, DO Status:ADM IN Location: [id number] Subjective Subjective Patient doing well without complaints. Tolerating PO. Ambulating and voiding without difficulty. infant feeding well. Denies chest pain, shortness of breath,calf pain/swelling, fevers, chills, lightheadedness. Objective Data Objective Data Vital Signs: Vital Signs Temp Pulse Resp BP Pulse Ox O2 Del Method 97.7 F L 110 H 18 121/75 H 98 Room Air 09/09/24 10:12 09/09/24 10:12 09/09/24 10:12 09/09/24 10:12 09/09/24 10:12 09/09/24 10:12 Oxygen Delivery Method Room Air Weight: 217 lb Body Mass Index (BMI) 36.1 Intake & Output: Intake and Output for Last 24 Hours 09/07/24 09/08/24 09/09/24 23:59 23:59 23:59 Intake Total 3192.87 / 3192.87 507.13 / 507.13 Output Total 500 / 500 1100 / 1100 Balance 2692.87 / 2692.87 -592.87 / -592.87 Lab / Micro Data 09/07/24 05:15 ROS Constitutional Constitutional: Reports systems reviewed and no addt'l complaints, except as documented Cardiovascular Cardiovascular: Reports systems reviewed and no addt'l complaints, except as documented Respiratory/Chest Respiratory/Chest: Reports systems reviewed and no addt'l complaints, except as documented Gastrointestinal Gastrointestinal: Reports systems reviewed and no addt'l complaints, except as documented Physical Exam Const alert, oriented x3 and no apparent distress HEENT Head and Scalp: atraumatic Resp normal respiratory effort GI soft to palpation and non-tender Bimanual Exam - Vag & Uterus: uterus non-tender Uterus Palpation: uterus fundus firm (below Umbilicus) Assessment & Plan (1) Chorioamnionitis in third trimester: (2) Vaginal delivery: COMMENT: sm IAL 39 girl PLAN: Plan s/p PPD # 2 1. routine post delivery care 2. breast feeding- support given 3. rh positive 4. rubella immune 09/09/24 1022 <Electronically signed by Mindy Michaels MD> Cosigner Signature (if applicable): CC: ~ Signed [facility] Work Phone: 1(123) 423-529505-30-2025 Discharge summary Author Mindy Michaels [facility] Note Date/Time September 08, 2024 12:[address] [facility] Medical Records Department [address] [place] [address] Instructions for Home/Discharge Instructions 09/07/246 MR#: [id number] Acct: [id number] Name: BRANDY WINKLER Rep #:[id number] : 1995 29 From: Mindy dumas MD PCP: Dr. Tacho Avila, DO Status:ADM IN Discharge Instructions Diet Discharge Diet: No restrictions DC O2, CPAP, BIPAP needs Home O2 Discharge instructions: No Dressing / Incision Discharge Activity: Return to Normal Activity, May Not Drive (while taking narcotic pain medications.) and May Shower May resume sexual activity in: 4-6 weeks Dressing / Incision Call your doctor if your incision/area has: Continuous Slow Oozing, Sudden Increased Bleeding, Increased Pain/ Swelling, Increased Redness and Foul Smelling Discharge Follow Up Care Please Follow Up With: Mindy Michaels MD When: Call [phone] to make an appointment with your doctor in 6 weeks. If you had elevated blood pressure or 4th degree laceration, you will need to be seen in 2 weeks. Test Results: Test results from this visit will be discussed in further detail at your follow- up appointment, if applicable. Discharge Plan Admission Admit Date/Time: 09/07/24 04:59 Attending Provider: Mindy Michaels Primary Care Provider: Tacho Avila Discharge Orders/Prescriptions Prescriptions: No Action PNV #91-tqxi-vrbtt acid-omega3 30 mg iron-10 mg iron-1 mg capsule 1 cap PO DAILY Referrals / Follow Up: Tacho Avila DO [Primary Care Provider] - 09/08/24 0012<Electronically signed by Mindy Michaels MD>Mindy Michaels MD CC: Dr. Tacho Avila DO ~ Signed [facility] Work Phone: 1(832) 274-241305-30-2025 Discharge summary [facility] Medical Records Department [address] [place] [address] Instructions for Home/Discharge Instructions 09/07/24 2156 MR#: [id number] Acct: [id number] Name: BRANDY WINKLER Rep #:[id number] : 1995 29 From: Mindy dumas MD PCP: Dr. Tacho Avila DO Status:ADM IN Discharge Instructions Diet Discharge Diet: No restrictions DC O2, CPAP, BIPAP needs Home O2 Discharge instructions: No Dressing / Incision Discharge Activity: Return to Normal Activity, May Not Drive (while taking narcotic pain medications.) and May Shower May resume sexual activity in: 4-6 weeks Dressing / Incision Call your doctor if your incision/area has: Continuous Slow Oozing, Sudden Increased Bleeding, Increased Pain/ Swelling, Increased Redness and Foul Smelling Discharge Follow Up Care Please Follow Up With: Mindy Michaels MD When: Call [phone] to make an appointment with your doctor in 6 weeks. If you had elevated blood pressure or 4th degree laceration, you will need to be seen in 2 weeks. Test Results: Test results from this visit will be discussed in further detail at your follow- up appointment, if applicable. Discharge Plan Admission Admit Date/Time: 09/07/24 04:59 Attending Provider: Mindy Michaels Primary Care Provider: Tacho Avila Discharge Orders/Prescriptions Prescriptions: No Action PNV #84-haky-rqrst acid-omega3 30 mg iron-10 mg iron-1 mg capsule 1 cap PO DAILY Referrals / Follow Up: Tacho Avila DO [Primary Care Provider] - 09/08/24 0012Sanh Michaels MD CC: Dr. Tacho Avila DO ~ Signed [facility]05-30-2025 Procedure note [facility] Medical Records Department [address] [place] [address] OB Vaginal Delivery 09/07/24 2155 MR#: [id number] Acct: [id number] Name: BRANDY WINKLER Rep #:[id number] : 1995 29 From: Mindy dumas MD PCP: Dr. Tacho Avila DO Status:ADM IN Location: [id number] Assessment & Plan (1) Velamentous insertion of umbilical cord: COMMENT: Growth US Q4w w/MFM @28w, weekly nsts 36 on delivery 40 weeks little to no traction on cord after delivery. (2) Supervision of normal : QUALIFIERS: Normal : normal first Trimester: second trimester Qualified Code(s): Z34.02 - Encounter for supervision of normal first , second trimester COMMENT: PRR, , ALFA 09/10/24, girl name secret : Joesph (3) : QUALIFIERS: Weeks of gestation: 38 weeks Qualified Code(s): Z3A.38 - 38 weeks gestation of COMMENT: Discussed genetic/carrier testing - declined., nl 36 wk growth (4) Vaginal delivery: COMMENT: sm IAL 39 girl (5) Chorioamnionitis in third trimester: Maternal Data Information ALFA Calculator Estimated Delivery Date Method Current WG Current Estimate 09/10/24 LMP (Certain) 39w 5d Vaginal Delivery Maternal Presentation Maternal Presentation: see assessment and plan Vaginal Delivery Information Procedure Performed: Spontaneous Vaginal Delivery Surgeon/Practitioner: Mindy Michaels Pre-Procedure Diagnosis: see assessment and plan Post-Procedure Diagnosis: same Type of anesthesia: Epidural Estimated Blood Loss: 300 Findings Description of procedure: Patient began pushing and delivered the head in the JASSI presentation. The head was delivered atraumatically and a loose nuchal cord ?1 was identified and easily reduced over the 's head. The anterior and posterior shoulders delivered without complication followed by the rest of the andthe infantwas placed on the maternal abdomen. Delayed cord clamping was employed for approximately 60 seconds. Cord was clamped and cut and gentle traction was applied to the cord and the placenta delivered spontaneously immediately following it was noted to be intact with three-vessel cord. The perineum and vagina were inspected and was noted to have a first -degree laceration that was repaired in the usual fashion with 3-0 vicryl rapide . EBL was 300. Patient and infant tolerated delivery well. 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 Tacho Avila, DO; Dr. 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 Tacho Avila, DO Status:ADM IN Location: RF953-2 HPI - General General Date of Admission: 09/07/24 HPI Narrative BRANDY WINKLER, is a 29 F who presents with SROM clear fluid irregular ctx no vb good fm pregnacy complicated by velamentous cord insertion Maternal Data Information ALFA Calculator Estimated Delivery Date Method Current WG Current Estimate 09/10/24 LMP (Certain) 39w 4d PFSH PFSH Medical History (Updated 09/07/24 @ 05:35 by Pavithra Waters) Placental abnormality Pilonidal cyst Dysuria Urinary frequency Home Medications ?Medication ?Instructions ?Recorded ?Last Taken ?Type vitamin#30 30 mg iron-10 1 cap PO DAILY pregn elba 01/28/24 09/06/24 History mg iron-folic acid 1 mg-omg3 capsule Allergy/AdvReac Type Severity Reaction Status Date / Time No Known Allergies Allergy Verified 09/07/24 03:50 Surgical History History of appendectomy Social History adopted: No household members: spouse current occupational status: employed 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/hazards: No pets and animals: Yes pets and animals: dog(s) history of recent travel: No sexually active: Yes Smoking Status: Never smoker alcohol intake: never substance use type: does not use well-balanced diet: daily or most days caffeine: Yes Type: coffee eating out: 1-3 times/week during the past year weight has: increased > 10 lbs what type of physical activity do you participate in: walking frequency: 5-6 times per week duration: 30-45 minutes/day seatbelt use: always do you feel safe at home: Yes 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 Elective abortions Hx Para 0 Spontaneous abortions Hx # Term Pregnancies Ectopic pregnancies Hx # Pregnancies Multiple births # of living children Visit Details Expected Delivery Route/Plan Labor Preferences- CB/BF classes: [] labor support person: [] labor intervention preferences: [] pain management options preferred: [] cut cord/dad catch: [] : [] PP control planned: [] discussed possible routes of delivery and associated risks: [] special requests: [] Plans Covid status: [] Flu vaccine: [] Tdap vaccine: Rhogam: [] LARC form signed: [] Problem list reviewed and updated with the most current plan of care details and appropriate orders placed. Relevant counseling for the gestational age provided. Continue routine care and follow up unless otherwise noted in visit notes/problem list details OB Flowsheet Initial Weight: 172 lb Date -?-?-?-?-?-?-?-?-?-?-?-?- EGA Weight BP Urine Prot -?-?-?-?-?-?-?-?-?-?-?-?- Glucose FHR FuHt Pres Dilation -?-?-?-?-?-?-?-?-?-?-?-?- Effaced St Visit Note 02/04/24 -?-?-?-?-?-?-?-?-?-?-?-?- 8w 5d 172 lb (+0 oz) 121/80 -?-?-?-?-?-?-?-?-?-?-?-?- 155 -?-?-?-?-?-?-?-?-?-?-?-?- SM CRL 1.78cm co ns with LMP small 5 mm subchorionic hematoma seen 03/06/24 -?-?-?-?-?-?-?-?-?-?-?-?- 13w 1d 176 lb (+4 lb) 114/73 Negative -?-?-?-?-?-?-?-?-?-?-?-?- Negative 150 -?-?-?-?-?-?-?-?-?-?-?-?- KW- no vb/dea tierney. ordered 04/06/24 -?-?-?-?-?-?-?-?-?-?-?-?- 17w 4d 178 lb (+6 lb) 112/68 Negative -?-?-?-?-?-?-?-?-?-?-?-?- Negative 151 -?-?-?-?-?-?-?-?-?-?-?-?- MH-No VB. No Flu tters yet. Nausea and fatigue improved. MFM US scheduled 04/25/24 -?-?-?-?-?-?-?-?-?-?-?-?- 20w 2d 184 lb 4 oz (+12 lb 4 oz) 112/72 Negative -?-?-?-?-?-?-?-?-?-?-?-?- Negative 152 20 -?-?-?-?-?-?-?-?-?-?-?-?- MH-No VB. Good FM. MFM anatomy US today 05/25/24 -?-?-?-?-?-?-?-?-?-?-?-?- 24w 4d 189 lb 8 oz (+17 lb 8 oz) 104/70 Negative -?-?-?-?-?-?-?-?-?-?-?-?- Negative 149 24 -?-?-?-?-?-?-?-?-?-?-?-?- JV- no lof, vagi nal bleeding, or cramping. velamentous cord insertion and will do q 4 week ultrasounds 06/21/24 -?-?-?-?-?-?-?-?-?-?-?-?- 28w 3d 197 lb 6 oz (+25 lb 6 oz) 197 lb 6 oz (+25 lb 6 oz) 138/82 -?-?-?-?-?-?-?-?-?-?-?-?- 145 28 -?-?-?-?-?-?-?-?-?-?-?-?- sm- no vb lof go od fm no reugalr ctx 07/04/24 -?-?-?-?-?-?-?-?-?-?-?-?- 30w 2d 201 lb (+29 lb) 116/83 Negative -?-?-?-?-?-?-?-?-?-?-?-?- Negative 130 30 -?-?-?-?-?-?-?-?-?-?-?-?- KW- no vb/lof/ct x. good fm. reviewed kick counts. LARC today. 07/18/24 -?-?-?-?-?-?-?-?-?-?-?-?- 32w 2d 204 lb 9 oz (+32 lb 9 oz) 113/72 Negative -?-?-?-?-?-?-?-?-?-?-?-?- Negative 135 31 -?-?-?-?-?-?-?-?-?-?-?-?- SM- no vb lof go od fm no reuglar ctx 08/04/24 -?-?-?-?-?-?-?-?-?-?-?-?- 34w 5d 207 lb 6 oz (+35 lb 6 oz) 109/72 1+ -?-?-?-?-?-?-?-?-?-?-?-?- Negative 140 33 -?-?-?-?-?-?-?-?-?-?-?-?- LC- no vb/ctx/lo f. good fm. LC- no vb/ctx/lof. good fm. NST and growths are scheduled. LC- no vb/ctx/lof. good fm. NST and growths are scheduled. PEC reviewed. has not hydrated today. 08/14/24 -?-?-?-?-?-?-?-?-?-?-?--?- 36w 1d 208 lb 8 oz (+36 lb 8 oz) 105/69 1+ -?-?-?-?-?-?-?-?-?-?-?-?- Negative 130 36 -?-?-?-?-?-?-?-?-?-?-?-?- JV- nst reactive . gbs collected. 08/25/24 -?-?-?-?-?-?-?-?-?-?-?-?- 37w 5d 210 lb (+38 lb) 113/74 -?-?-?-?-?-?-?-?-?-?-?-?- 130 37 -?-?-?-?-?-?-?-?-?-?-?-?- SM- no vb lof go od fm no regualr ctx SM- no vb lof good fm no reg ualr ctx co discharge culture sent SM- no vb lof good fm no reg ualr ctx co odor culture sent co iol by due date 08/31/24 -?-?-?-?-?-?-?-?-?-?-?-?- 38w 4d 212 lb 8 oz (+40 lb 8 oz) 109/74 1+ -?-?-?-?-?-?-?-?-?--?-?-?- Negative 130 38 0.5 -?-?-?-?-?-?-?-?-?-?-?-?- 50 -1 SM- no vb lof good fm n oreuglar ctx discussed and setup IOL for september 09 NST FHR Rate Baby A Baseline: 120 Variability:: Moderate Accelerations:: 15 x 15 Decelerations:: None NST Reactive:: Yes FHR Category:: Category I Uterine Activity:: irregular ROS Constitutional Constitutional: Reports systems reviewed and no addt'l complaints, except as documented Eyes Eyes: Denies change in vision ENT HEENT: Reports systems reviewed and no addt'l complaints, except as documented; Denies headache(s) Cardiovascular Cardiovascular: Reports systems reviewed and no addt'l complaints, except as documented; Denies chest pain or dyspnea Respiratory/Chest Respiratory/Chest: Reports systems reviewed and no addt'l complaints, except as documented Gastrointestinal Gastrointestinal: Reports systems reviewed and no addt'l complaints, except as documented; Denies abdominal pain Genitourinary Genitourinary: Reports systems reviewed and no addt'l complaints, except as documented, contractions Details: present (irregular) and movement Details: present; Denies dysuria or genital lesions Musculoskeletal Musculoskeletal: Reports systems reviewed and no addt'l complaints, except as documented Neurologic Neurologic: Reports systems reviewed and no addt'l complaints, except as documented Endocrine Endocrinology: Reports systems reviewed and no addt'l complaints, except as documented Vital Signs Vital Signs Vital Signs: 09/07/24 03:39 09/07/24 03:39 09/07/24 03:41 Temperature Temperature Source Tympanic Pulse Rate 91 Respiratory Rate Blood Pressure BP Systolic BP Diastolic Pulse Ox 99 09/07/24 03:41 09/07/24 03:41 09/07/24 03:43 Temperature 98.1 F 98.1 F Temperature Source Pulse Rate Respiratory Rate 18 Blood Pressure BP Systolic BP Diastolic Pulse Ox 09/07/24 03:44 09/07/24 03:44 09/07/24 06:41 Temperature 98.1 F Temperature Source Pulse Rate 85 Respiratory Rate Blood Pressure 123/72 H BP Systolic 123 BP Diastolic 72 Pulse Ox 09/07/24 06:43 09/07/24 06:43 Temperature Temperature Source Pulse Rate 94 Respiratory Rate Blood Pressure 111/69 BP Systolic 111 BP Diastolic 69 Pulse Ox Weight Weight: 217 lb Body Mass Index (BMI) 36.1 Physical Exam Const alert, oriented x3, no apparent distress and healthy appearing HEENT normocephalic and moist oral mucous membranes Head and Scalp: atraumatic Neck full ROM, no lymphadenopathy, supple and thyroid normal General: trachea midline Lymph Lymphatic: no lymphadenopathy noted Chest inspection of chest normal Resp normal respiratory effort Cardio regular rate GI soft to palpation and non-tender GI Narrative: gravid Inspection: gravid external exam normal Manual OB Exam: estimated gestational size appropriate, presentation cephalic, dilated, effaced and station Extremity normal to inspection General Extremity: Negative for edema Skin no rashes or lesions noted Neuro no focal motor deficits and deep tendon reflexes 2+ bilaterally Motor Exam: strength 5/5 throughout and clonus absent Psych mental status grossly normal Labs Labs Labs: Blood Type A POSITIVE Antibody Screen NEGATIVE Hct 36.4 % (37-47) L Hgb 12.0 g/dL (12.0-15.0) Pap Smear Negative Syphilis Total Ab Nonreactive (Nonreactive) Rubella IgG Antibody Reactive (Nonreactive) Hep Bs Antigen Non-Reactive (Nonreactive) Hepatitis C Antibody Non-Reactive (Nonreactive) Chlamydia DNA (RIC) Negative (Negative) N.gonorrhoeae DNA (RIC) Negative (Negative) HIV 1&2 Antibody Nonreactive (Nonreactive) Glucose 1 Hr 50 gm 116 mg/dL (70-140) Assessment & Plan (1) : QUALIFIERS: Weeks of gestation: 38 weeks Qualified Code(s): Z3A.38 - 38 weeks gestation of COMMENT: Discussed genetic/carrier testing - declined., nl 36 wk growth (2) Supervision of normal : QUALIFIERS: Normal : normal first Trimester: second trimester Qualified Code(s): Z34.02 - Encounter for supervision of normal first , second trimester COMMENT: PRR, , ALFA 09/10/24, girl name secret : Joesph (3) Velamentous insertion of umbilical cord: COMMENT: Growth US Q4w w/MFM @28w, weekly nsts 36 on delivery 40 weeks little to no traction on cord after delivery. PLAN: Plan admit IAL pitocin PRN epidural PRN 09/07/242109 <Electronically signed by Mindy Michaels MD> Cosigner Signature (if applicable): CC: Dr. Tacho Avila, DO; Dr. Mindy Michaels MD~ Signed [facility] Work Phone: 1(347) 566-115505-29-2025 History and physical note 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 Tacho Avila, DO Status:ADM IN Location: [id number] HPI - General General Date of Admission: 09/07/24 HPI Narrative BRANDY WINKLER, is a 29 F who presents with SROM clear fluid irregular ctx no vb good fm pregnacycomplicated by velamentous cord insertion Maternal Data Information ALFA Calculator Estimated Delivery Date Method Current WG Current Estimate 09/10/24 LMP (Certain) 39w 4d PFSH PFSH Medical History (Updated 09/07/24 @ 05:35 by Pavithra Waters) Placental abnormality Pilonidal cyst Dysuria Urinary frequency Home Medications ?Medication ?Instructions ?Recorded ?Last Taken ?Type vitamin#30 30 mg iron-10 1 cap PO DAILY pregn elba 01/28/24 09/06/24 History mg iron-folic acid 1 mg-omg3 capsule Allergy/AdvReac Type Severity Reaction Status Date / Time No Known Allergies Allergy Verified 09/07/24 03:50 Surgical History History of appendectomy Social History adopted: No household members: spouse current occupational status: employed 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/hazards: No pets and animals: Yes pets and animals: dog(s) history of recent travel: No sexually active: Yes Smoking Status: Never smoker alcohol intake: never substance use type: does not use well-balanced diet: daily or most days caffeine: Yes Type: coffee eating out: 1-3 times/week during the past year weight has: increased > 10 lbs what type of physical activity do you participate in: walking frequency: 5-6 times per week duration: 30-45 minutes/day seatbelt use: always do you feel safe at home: Yes 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 Elective abortions Hx Para 0 Spontaneous abortions Hx # Term Pregnancies Ectopic pregnancies Hx # Pregnancies Multiple births # of living children Visit Details Expected Delivery Route/Plan Labor Preferences- CB/BF classes: [] labor support person: [] labor intervention preferences: [] pain management options preferred: [] cut cord/dad catch: [] : [] PP control planned: [] discussed possible routes of delivery and associated risks: [] special requests: [] Plans Covid status: [] Flu vaccine: [] Tdap vaccine: Rhogam: [] LARC form signed: [] Problem list reviewed and updated with the most current plan of care details and appropriate ordersplaced. Relevant counseling for the gestational age provided. Continue routine care and follow up unless otherwise noted in visit notes/problem list details OB Flowsheet Initial Weight: 172 lb Date -?-?-?-?-?-?-?-?-?-?-?-?- EGA Weight BP Urine Prot -?-?-?-?-?-?-?-?-?-?-?-?- Glucose FHR FuHt Pres Dilation -?-?-?-?-?-?-?-?-?-?-?-?- Effaced St Visit Note 02/04/24 -?-?-?-?-?-?-?-?-?-?-?-?- 8w 5d 172 lb (+0 oz) 121/80 -?-?-?-?-?-?-?-?-?-?-?-?- 155 -?-?-?-?-?-?-?-?-?-?-?-?- SM CRL 1.78cm co ns with LMP small 5 mm subchorionic hematoma seen 03/06/24 -?-?-?-?-?-?-?-?-?-?-?-?- 13w 1d 176 lb (+4 lb) 114/73 Negative -?-?-?-?-?-?-?-?-?-?-?-?- Negative 150 -?-?-?-?-?-?-?-?-?-?-?-?- KW- no vb/dea tierney. US ordered 04/06/24 -?-?-?-?-?-?-?-?-?-?-?-?- 17w 4d 178 lb (+6 lb) 112/68 Negative -?-?-?-?-?-?-?-?-?-?-?-?- Negative 151 -?-?-?-?-?-?-?-?-?-?-?-?- MH-No VB. No Flu tters yet. Nausea and fatigue improved. MFM US scheduled 04/25/24 -?-?-?-?-?-?-?-?-?-?-?-?- 20w 2d 184 lb 4 oz (+12 lb 4 oz) 112/72 Negative -?-?-?-?-?-?-?-?-?-?-?-?- Negative 152 20 -?-?-?-?-?-?-?-?-?-?-?-?- MH-No VB. Good FM. MFM anatomy US today 05/25/24 -?-?-?-?-?-?-?-?-?-?-?-?- 24w 4d 189 lb 8 oz (+17 lb 8 oz) 104/70 Negative -?-?-?-?-?-?-?-?-?-?-?-?- Negative 149 24 -?-?-?-?-?-?-?-?-?-?-?-?- JV- no lof, vagi nal bleeding, or cramping. velamentous cord insertion and will do q 4 week ultrasounds 06/21/24 -?-?-?-?-?-?-?-?-?-?-?-?- 28w 3d 197 lb 6 oz (+25 lb 6 oz) 197 lb 6 oz (+25 lb 6 oz) 138/82 -?-?-?-?-?-?-?-?-?-?-?-?- 145 28 -?-?-?-?-?-?-?-?-?-?-?-?- sm- no vb lof go od fm no reugalr ctx 07/04/24 -?-?-?-?-?-?-?-?-?-?-?-?- 30w 2d 201 lb (+29 lb) 116/83 Negative -?-?-?-?-?-?-?-?-?-?-?-?- Negative 130 30 -?-?-?-?-?-?-?-?-?-?-?-?- KW- no vb/lof/ct x. good fm. reviewed ruma farley. [employer] today. 07/18/24 -?-?-?-?-?-?-?-?-?-?-?-?- 32w 2d 204 lb 9 oz (+32 lb 9 oz) 113/72 Negative -?-?-?-?-?-?-?-?-?-?-?-?- Negative 135 31 -?-?-?-?-?-?-?-?-?-?-?-?- SM- no vb lof go od fm no reuglar ctx 08/04/24 -?-?-?-?-?-?-?-?-?-?-?-?- 34w 5d 207 lb 6 oz (+35 lb 6 oz) 109/72 1+ -?-?-?-?-?-?-?-?-?-?-?-?- Negative 140 33 -?-?-?-?-?-?-?-?-?-?-?-?- LC- no vb/ctx/lo f. good fm. LC- no vb/ctx/lof. good fm. NST and growths are scheduled. LC- no vb/ctx/lof. good fm. NST and growths are scheduled. PEC reviewed. has not hydrated today. 08/14/24 -?-?-?-?-?-?-?-?-?-?-?--?- 36w 1d 208 lb 8 oz (+36 lb 8 oz) 105/69 1+ -?-?-?-?-?-?-?-?-?-?-?-?- Negative 130 36 -?-?-?-?-?-?-?-?-?-?-?-?- JV- nst reactive . gbs collected. 08/25/24 -?-?-?-?-?-?-?-?-?-?-?-?- 37w 5d 210 lb (+38 lb) 113/74 -?-?-?-?-?-?-?-?-?-?-?-?- 130 37 -?-?-?-?-?-?-?-?-?-?-?-?- SM- no vb lof go od fm no regualr ctx SM- no vb lof good fm no reg ualr ctx co discharge culture sent SM- no vb lof good fm no reg ualr ctx co odor culture sent co iol by due date 08/31/24 -?-?-?-?-?-?-?-?-?-?-?-?- 38w 4d 212 lb 8 oz (+40 lb 8 oz) 109/74 1+ -?-?-?-?-?-?-?-?-?--?-?-?- Negative 130 38 0.5 -?-?-?-?-?-?-?-?-?-?-?-?- 50 -1 SM- no vb lof good fm n oreuglar ctx discussed and setup IOL for september 09 NST FHR Rate Baby A Baseline: 120 Variability:: Moderate Accelerations:: 15 x 15 Decelerations:: None NST Reactive:: Yes FHR Category:: Category I Uterine Activity:: irregular ROS Constitutional Constitutional: Reports systems reviewed and no addt'l complaints, except as documented Eyes Eyes: Denies change in vision ENT HEENT: Reports systems reviewed and no addt'l complaints, except as documented; Denies headache(s) Cardiovascular Cardiovascular: Reports systems reviewed and no addt'l complaints, except as documented; Denies chest pain or dyspnea Respiratory/Chest Respiratory/Chest: Reports systems reviewed and no addt'l complaints, except as documented Gastrointestinal Gastrointestinal: Reports systems reviewed and no addt'l complaints, except as documented; Denies abdominal pain Genitourinary Genitourinary: Reports systems reviewed and no addt'l complaints, except as documented, contractions Details: present (irregular) and movement Details: present; Denies dysuria or genital lesions Musculoskeletal Musculoskeletal: Reports systems reviewed and no addt'l complaints, except as documented Neurologic Neurologic: Reports systems reviewed and no addt'l complaints, except as documented Endocrine Endocrinology: Reports systems reviewed and no addt'l complaints, except as documented Vital Signs Vital Signs Vital Signs: 09/07/24 03:39 09/07/24 03:39 09/07/24 03:41 Temperature Temperature Source Tympanic Pulse Rate 91 Respiratory Rate Blood Pressure BP Systolic BP Diastolic Pulse Ox 99 09/07/24 03:41 09/07/24 03:41 09/07/24 03:43 Temperature 98.1 F 98.1 F Temperature Source Pulse Rate Respiratory Rate 18 Blood Pressure BP Systolic BP Diastolic Pulse Ox 09/07/24 03:44 09/07/24 03:44 09/07/24 06:41 Temperature 98.1 F Temperature Source Pulse Rate 85 Respiratory Rate Blood Pressure 123/72 H BP Systolic 123 BP Diastolic 72 Pulse Ox 09/07/24 06:43 09/07/24 06:43 Temperature Temperature Source Pulse Rate 94 Respiratory Rate Blood Pressure 111/69 BP Systolic 111 BP Diastolic 69 Pulse Ox Weight Weight: 217 lb Body Mass Index (BMI) 36.1 Physical Exam Const alert, oriented x3, no apparent distress and healthy appearing HEENT normocephalic and moist oral mucous membranes Head and Scalp: atraumatic Neck full ROM, no lymphadenopathy, supple and thyroid normal General: trachea midline Lymph Lymphatic: no lymphadenopathy noted Chest inspection of chest normal Resp normal respiratory effort Cardio regular rate GI soft to palpation and non-tender GI Narrative: gravid Inspection: gravid external exam normal Manual OB Exam: estimated gestational size appropriate, presentation cephalic, dilated, effaced and station Extremity normal to inspection General Extremity: Negative for edema Skin no rashes or lesions noted Neuro no focal motor deficits and deep tendon reflexes 2+ bilaterally Motor Exam: strength 5/5 throughout and clonus absent Psych mental status grossly normal Labs Labs Labs: Blood Type A POSITIVE Antibody Screen NEGATIVE Hct 36.4 % (37-47) L Hgb 12.0 g/dL (12.0-15.0) Pap Smear Negative Syphilis Total Ab Nonreactive (Nonreactive) Rubella IgG Antibody Reactive (Nonreactive) Hep Bs Antigen Non-Reactive (Nonreactive) Hepatitis C Antibody Non-Reactive (Nonreactive) Chlamydia DNA (RIC) Negative (Negative) N.gonorrhoeae DNA (RIC) Negative (Negative) HIV 1&2 Antibody Nonreactive (Nonreactive) Glucose 1 Hr 50 gm 116 mg/dL (70-140) Assessment & Plan (1) : QUALIFIERS: Weeks of gestation: 38 weeks Qualified Code(s): Z3A.38 - 38 weeks gestation of COMMENT: Discussed genetic/carrier testing - declined., nl 36 wk growth (2) Supervision of normal : QUALIFIERS: Normal : normal first Trimester: second trimester Qualified Code(s): Z34.02 - Encounter for supervision of normal first , second trimester COMMENT: PRR, , ALFA 09/10/24, girl name secret : Joesph (3) Velamentous insertion of umbilical cord: COMMENT: Growth US Q4w w/MFM @28w, weekly nsts 36 on delivery 40 weeks little to no traction on cord after delivery. PLAN: Plan admit IAL pitocin PRN epidural PRN 09/07/242109 Cosigner Signature (if applicable): CC: Dr. Tacho Avila DO; Dr. Mindy Michaels MD~ Signed [facility]03-25-2025 Evaluation note* Diagnosis Onset Date Resolution Status Admit Date acute July 04 3:23pm Supervision of normal acut e July 04, 2024 3:23pm Velamentous insertion of umbilical cord acute July 04, 2024 3:23pm acute July 18 2:31pm Supervision of normal acut e July 18, 2024 2:31pm Velamentous insertion of umbilical cord acute July 18, 2024 2:31pm acute August 04 1:47pm Supervision of normal acut e August 04, 2024 1:47pm Velamentous insertion of umbilical cord acute August 04, 2024 1:47pm acute August 14, 2024 1:53pm Supervision of normal acut e August 14, 2024 1:53pm Velamentous insertion of umbilical cord acute August 14, 2024 1: 53pm acute August 25, 2024 2:24pm Supervision of normal acut e August 25, 2024 2:24pm Velamentous insertion of umbilical cord acute August 25, 2024 2:24pm acute August 31, 2024 9:16am Supervision of normal acut e August 31, 2024 9:16am Velamentous insertion of umbilical cord acute August 31, 2024 9:16am Chorioamnionitis in third trimester acute September 07, 2024 4:59am acute September 07, 2024 4:59am Supervision of normal acut e September 07, 2024 4:59am Vaginal delivery acute August 4:59am Velamentous insertion of umbilical cord acute September 07, 2024 4:59am Routine Follow-Up noneact ward October 26, 2024 3:54pm [place] [facility] [employer] Work Phone: 1(103) 298-908502-13-2025 Evaluation note* Diagnosis Onset Date Resolution Status Admit Date acute May 25, 2024 3:04pm Supervision of normal acute May 25, 2 025 3:04pm Velamentous insertion of umbilical cord acute May 25, 2 025 3:04pm acute June 21 2:22pm Supervision of normal acute June 21, 2024 2:22pm Velamentous insertion of umbilical cord acute June 21, 2024 2:22pm acute July 04 3:23pm Supervision of normal acute July 04, 2024 3:23pm Velamentous insertion of umbilical cord acute July 04, 2024 3:23pm acute July 18 2:31pm Supervision of normal acute July 18, 2024 2:31pm Velamentous insertion of umbilical cord acute July 18, 2024 2:31pm acute August 04 1:47pm Supervision of normal acute August 04, 2024 1:47pm Velamentous insertion of umbilical cord acute August 04, 2024 1:47pm acute August 14, 2024 1:53pm Supervision of normal acute August 14, 2024 1: 53pm Velamentous insertion of umbilical cord acute August 14, 2024 1: 53pm acute August 25, 2024 2:24pm Supervision of normal acute August 25, 2024 2 :24pm Velamentous insertion of umbilical cord acute August 25, 2024 2 :24pm [place] [facility] [employer] Work Phone: 1(418) 687-377902-13-2025 Evaluation note* Diagnosis Onset Date Resolution Status Admit Date acute May 25, 2024 3:04pm Supervision of normal acut e May 25, 2024 3:04pm Velamentous insertion of umbilical cord acute May 25 3:04pm acute June 21 2:22pm Supervision of normal acut e June 21, 2024 2:22pm Velamentous insertion of umbilical cord acute June 21, 2024 2:22pm acute July 04 3:23pm Supervision of normal acut e July 04, 2024 3:23pm Velamentous insertion of umbilical cord acute July 04, 2024 3:23pm acute July 18 2:31pm Supervision of normal acut e July 18, 2024 2:31pm Velamentous insertion of umbilical cord acute July 18, 2024 2:31pm acute August 04 1:47pm Supervision of normal acut e August 04, 2024 1:47pm Velamentous insertion of umbilical cord acute August 04, 2024 1:47pm acute August 14, 2024 1:53pm Supervision of normal acut e August 14, 2024 1:53pm Velamentous insertion of umbilical cord acute August 14, 2024 1: 53pm acute August 25, 2024 2:24pm Supervision of normal acut e August 25, 2024 2:24pm Velamentous insertion of umbilical cord acute August 25, 2024 2 :24pm acute August 31, 2024 9:16am Supervision of normal acut e August 31, 2024 9:16am Velamentous insertion of umbilical cord acute August 31, 2024 9 :16am Chorioamnionitis in third trimester acute September 07, 2024 4 :59am acute September 07, 2024 4:59am Supervision of normal acut e September 07, 2024 4:59am Vaginal delivery acute August 4:59am Velamentous insertion of umbilical cord acute September 07, 2024 4 :59am [facility] Work Phone: 1(648) 318-618901-14-2025 Evaluation note* Diagnosis Onset Date Resolution Status Admit Date acute April 25, 2024 12:48pm Supervision of normal acute April 25 12:48pm acute May 25, 2024 3:04pm Supervision of normal acute May 25, 025 3:04pm Velamentous insertion of umbilical cord acute May 25 025 3:04pm acute June 21 2:22pm Supervision of normal acute June 21, 2024 2:22pm Velamentous insertion of umbilical cord acute June 21, 2024 2:22pm acute July 04 3:23pm Supervision of normal acute July 04, 2024 3:23pm Velamentous insertion of umbilical cord acute July 04, 2024 3:23pm acute July 18 2:31pm Supervision of normal acute July 18, 2024 2:31pm Velamentous insertion of umbilical cord acute July 18, 2024 2:31pm acute August 04 1:47pm Supervision of normal acute August 04, 2024 1:47pm Velamentous insertion of umbilical cord acute August 04, 2024 1:47pm acute August 14, 2024 1:53pm Supervision of normal acute August 14, 2024 1: 53pm Velamentous insertion of umbilical cord acute August 14, 2024 1: 53pm [facility] Work Phone: 1(257) 460-141211-25-2024 Evaluation note* Diagnosis Onset Date Resolution Status Admit Date acute March 06, 2024 2:54pm Supervision of normal acute March 06, 2 024 2:54pm acute April 06, 2024 3:44pm Supervision of normal acute April 06, 2 024 3:44pm acute April 25, 2024 12:48pm Supervision of normal acute April 25 12:48pm acute May 25, 2024 3:04pm Supervision of normal acute May 25, 2 025 3:04pm Velamentous insertion of umbilical cord acute May 25, 2 025 3:04pm acute June 21 2:22pm Supervision of normal acute June 21, 2024 2:22pm Velamentous insertion of umbilical cord acute June 21, 2024 2:22pm [facility] Work Phone: Reason for referral (narrative)No reason for referral information [facility] Work [facility]: Summary Purpose Family History No Family History Records FoundNo Family History Records FoundNo Family History Records Found Advance Directives Advance Directive Response Recorded Date/ Time Do you have a Healthcare Power of Manager Financial? No September 07, 2024 5:22am Chief Complaint and Reason for Visit Chief Complaint Admit Date 12wk OB March 06, 2024 2:54pm 16 WK OB April 06, 2024 3:44pm 20 week MFM anatomy @ 2 April 25 12:48pm 24 wk ob May 25, 2024 3:04pm 28 wk ob/glucose June 21, 2024 2:2 2pm Reason for Visit Admit Date March 06, 2024 2:54pm Supervision of normal March 06, 2024 2:54pm April 06, 2024 3:44pm Supervision of normal April 06, 2024 3:44pm April 25, 2024 1 2:48pm Supervision of normal April 25, 2024 12:48pm May 25, 2024 3:04pm Supervision of normal May 25, 2024 3:04pm Velamentous insertion of umbilical cord May 25, 2024 3:04pm June 21, 2024 2:2 2pm Supervision of normal June 212024 2:22pm Velamentous insertion of umbilical cord June 21, 2024 2:22pm Chief Complaint Admit Date 20 week MFM anatomy @ 2 April 25 12:48pm 24 wk ob May 25, 2024 3:04pm 28 wk ob/glucose June 21, 2024 2:2 2pm 30 wk ob July 04, 2024 3:2 3pm 32 wk ob July 18, 2024 2:31 pm 34 wk ob August 04, 2024 1:4 7pm 36 wk ob/NST August 14, 2024 1:53pm Reason for Visit Admit Date April 25, 2024 1 2:48pm Supervision of normal April 25, 2024 12:48pm May 25, 2024 3:04pm Supervision of normal May 25, 2024 3:04pm Velamentous insertion of umbilical cord May 25, 2024 3:04pm June 21, 2024 2:2 2pm Supervision of normal June 212024 2:22pm Velamentous insertion of umbilical cord June 21, 2024 2:22pm July 04, 2024 3:2 3pm Supervision of normal July 042024 3:23pm Velamentous insertion of umbilical cord July 04, 2024 3:23pm July 18, 2024 2:31 pm Supervision of normal July 2:31pm Velamentous insertion of umbilical cord July 18, 2024 2:31pm August 04, 2024 1:4 7pm Supervision of normal August 042024 1:47pm Velamentous insertion of umbilical cord August 04, 2024 1:47pm August 14, 2024 1:53pm Supervision of normal August 14, 2024 1:53pm Velamentous insertion of umbilical cord August 14, 2024 1:53pm Chief Complaint Admit Date 24 wk ob May 25, 2024 3:04pm 28 wk ob/glucose June 21, 2024 2:2 2pm 30 wk ob July 04, 2024 3:2 3pm 32 wk ob July 18, 2024 2:31 pm 34 wk ob August 04, 2024 1:4 7pm 36 wk ob/NST August 14, 2024 1:53pm 37 wk ob/NST August 25, 2024 2:24p m Reason for Visit Admit Date May 25, 2024 3:04pm Supervision of normal May 25, 2024 3:04pm Velamentous insertion of umbilical cord May 25, 2024 3:04pm June 21, 2024 2:2 2pm Supervision of normal June 212024 2:22pm Velamentous insertion of umbilical cord June 21, 2024 2:22pm July 04, 2024 3:2 3pm Supervision of normal July 042024 3:23pm Velamentous insertion of umbilical cord July 04, 2024 3:23pm July 18, 2024 2:31 pm Supervision of normal July 2:31pm Velamentous insertion of umbilical cord July 18, 2024 2:31pm August 04, 2024 1:4 7pm Supervision of normal August 042024 1:47pm Velamentous insertion of umbilical cord August 04, 2024 1:47pm August 14, 2024 1:53pm Supervision of normal August 14, 2024 1:53pm Velamentous insertion of umbilical cord August 14, 2024 1:53pm August 25, 2024 2:24p m Supervision of normal August 2:24pm Velamentous insertion of umbilical cord August 25, 2024 2:24pm Chief Complaint Admit Date 24 wk ob May 25, 2024 3:04pm 28 wk ob/glucose June 21, 2024 2:2 2pm 30 wk ob July 04, 2024 3:2 3pm 32 wk ob July 18, 2024 2:31 pm 34 wk ob August 04, 2024 1:4 7pm 36 wk ob/NST August 14, 2024 1:53pm 37 wk ob/NST August 25, 2024 2:24p m 38 wk ob/NST August 31, 2024 9:16a m VAG September 07, 2024 4:59a m LABOR September 07, 2024 7:01a m VAG September 09, 2024 10:22 am Reason for Visit Admit Date May 25, 2024 3:04pm Supervision of normal May 25, 2024 3:04pm Velamentous insertion of umbilical cord May 25, 2024 3:04pm June 21, 2024 2:2 2pm Supervision of normal June 212024 2:22pm Velamentous insertion of umbilical cord June 21, 2024 2:22pm July 04, 2024 3:2 3pm Supervision of normal July 042024 3:23pm Velamentous insertion of umbilical cord July 04, 2024 3:23pm July 18, 2024 2:31 pm Supervision of normal July 2:31pm Velamentous insertion of umbilical cord July 18, 2024 2:31pm August 04, 2024 1:4 7pm Supervision of normal August 042024 1:47pm Velamentous insertion of umbilical cord August 04, 2024 1:47pm August 14, 2024 1:53pm Supervision of normal August 14, 2024 1:53pm Velamentous insertion of umbilical cord August 14, 2024 1:53pm August 25, 2024 2:24p m Supervision of normal August 2:24pm Velamentous insertion of umbilical cord August 25, 2024 2:24pm August 31, 2024 9:16a m Supervision of normal August 9:16am Velamentous insertion of umbilical cord August 31, 2024 9:16am Chorioamnionitis in third trimester September 07, 2024 4:59am September 07, 2024 4:59a m Supervision of normal August 4:59am Vaginal delivery September 07, 2024 4:59a m Velamentous insertion of umbilical cord September 07, 2024 4:59am Chief Complaint Admit Date 30 wk ob July 04, 2024 3:2 3pm 32 wk ob July 18, 2024 2:31 pm 34 wk ob August 04, 2024 1:4 7pm 36 wk ob/NST August 14, 2024 1:53pm 37 wk ob/NST August 25, 2024 2:24p m 38 wk ob/NST August 31, 2024 9:16a m VAG September 07, 2024 4:59a m LABOR September 07, 2024 7:01a m VAG September 09, 2024 10:22 am visit (obstetrics) October 26, 2024 3:54pm Reason for Visit Admit Date July 04, 2024 3:2 3pm Supervision of normal July 042024 3:23pm Velamentous insertion of umbilical cord July 04, 2024 3:23pm July 18, 2024 2:31 pm Supervision of normal July 2:31pm Velamentous insertion of umbilical cord July 18, 2024 2:31pm August 04, 2024 1:4 7pm Supervision of normal August 042024 1:47pm Velamentous insertion of umbilical cord August 04, 2024 1:47pm August 14, 2024 1:53pm Supervision of normal August 14, 2024 1:53pm Velamentous insertion of umbilical cord August 14, 2024 1:53pm August 25, 2024 2:24p m Supervision of normal August 2:24pm Velamentous insertion of umbilical cord August 25, 2024 2:24pm August 31, 2024 9:16a m Supervision of normal August 9:16am Velamentous insertion of umbilical cord August 31, 2024 9:16am Chorioamnionitis in third trimester September 07, 2024 4:59am September 07, 2024 4:59a m Supervision of normal August 4:59am Vaginal delivery September 07, 2024 4:59a m Velamentous insertion of umbilical cord September 07, 2024 4:59am Routine Follow-Up October 26, 2024 3:54pm Additional Source Comments INFORMATION SOURCE (unrecogn ized section and content) DATE CREATED AUTHOR 11/20/2018 [facility] DATE CREATED AUTHOR AUTHOR'S ORGANIZ ATION 08/19/2024 [facility] DATE CREATED AUTHOR AUTHOR'S ORGANIZ ATION 10/19/2024 [facility] Care Teams (unrecognized sec tion and content) Team Status: Active Member Role Status Dates Dr. Tacho Avila DO Primary Care Provider Active Team Status: Inactive Member Role Status Dates Dr. Tacho Avila DO Primary Care Provider Active Start: March 06, 2024 End: March 06, 2024 Dr. Tacho Avila DO Referring Provider Active Start: March 06, 2024 End: March 06, 2024 Ayana Valencia CNM Attending Provider Active S tart: March 06, 2024 End: March 06, 2024 Team Status: Inactive Member Role Status Dates Dr. Tacho Avila DO Primary Care Provider Active Start: April 06, 2024 End: April 06, 2024 Dr. Tacho Avila DO Referring Provider Active Start: April 06, 2024 End: April 06, 2024 Geovanni Gale COMMUNITY RECREATION PROGRAMMER, COMMUNITY RECREATION PROGRAMMER-C Attending Provider Active Start: April 06, 2024 End: April 06, 2024 Team Status: Inactive Member Role Status Dates Dr. Tacho Avila DO Primary Care Provider Active Start: April 25, 2024 End: April 25, 2024 Dr. Tacho Avila DO Referring Provider Active Start: April 25, 2024 End: April 25, 2024 Geovanni Gale COMMUNITY RECREATION PROGRAMMER, COMMUNITY RECREATION PROGRAMMER-C Attending Provider Active Start: April 25, 2024 End: April 25, 2024 Team Status: Inactive Member Role Status Dates Dr. Tacho Avila DO Primary Care Provider Active Start: May 25, 2024 End: May 25, 2024 Dr. Tacho Avila DO Referring Provider Active Start: May 25, 2024 End: May 25, 2024 Dr. Joann Tang DO Attending Provider Activ e Start: May 25, 2024 End: May 25, 2024 Team Status: Inactive Member Role Status Dates Dr. Tacho Avila DO Primary Care Provider Active Start: June 21, 2024 End: June 21, 2024 Dr. Tacho Avila DO Referring Provider Active Start: June 21, 2024 End: June 21, 2024 Dr. Mindy Michaels MD Attending Provider Active Start: June 21, 2024 End: June 21, 2024 Team Status: Inactive Member Role Status Dates Dr. Tcaho Avila DO Primary Care Provider Active Start: June 22, 2024 End: June 22, 2024 Dr. Joann Tang DO Attending Provider Activ e Start: June 22, 2024 End: June 22, 2024 Dr. Joann Tang DO Referring Provider Activ e Start: June 22, 2024 End: June 22, 2024 Team Status: Inactive Member Role Status Dates Dr. Tacho Avila DO Primary Care Provider Active Start: July 04, 2024 End: July 04, 2024 Dr. Tacho Avila DO Referring Provider Active Start: July 04, 2024 End: July 04, 2024 Ayana Valencia CNM Attending Provider Active S tart: July 04, 2024 End: July 04, 2024 Team Status: Inactive Member Role Status Dates Dr. Tacho Avila DO Primary Care Provider Active Start: July 18, 2024 End: July 18, 2024 Dr. Tacho Avila DO Referring Provider Active Start: July 18, 2024 End: July 18, 2024 Dr. Mindy Michaels MD Attending Provider Active Start: July 18, 2024 End: July 18, 2024 Team Status: Inactive Member Role Status Dates Dr. Tacho Avila DO Primary Care Provider Active Start: August 04, 2024 End: August 04, 2024 Dr. Tacho Avila DO Referring Provider Active Start: August 04, 2024 End: August 04, 2024 Rani Ridley CNM Attending Provider Active Start: August 04, 2024 End: August 04, 2024 Team Status: Inactive Member Role Status Dates Dr. Tacho Avila DO Primary Care Provider Active Start: August 14, 2024 End: August 14, 2024 Dr. Tacho Avila DO Referring Provider Active Start: August 14, 2024 End: August 14, 2024 Dr. Joann Tang DO Attending Provider Activ e Start: August 14, 2024 End: August 14, 2024 Team Status: Inactive Member Role Status Dates Dr. Tacho Avila DO Primary Care Provider Active Start: August 14, 2024 End: August 14, 2024 Dr. Joann Tang DO Attending Provider Activ e Start: August 14, 2024 End: August 14, 2024 Dr. Joann Tang DO Referring Provider Activ e Start: August 14, 2024 End: August 14, 2024 Team Status: Inactive Member Role Status Dates Dr. Tacho Avila DO Primary Care Provider Active Start: August 25, 2024 End: August 25, 2024 Dr. Tacho Avila DO Referring Provider Active Start: August 25, 2024 End: August 25, 2024 Dr. Mindy Michaels MD Attending Provider Active Start: August 25, 2024 End: August 25, 2024 Team Status: Inactive Member Role Status Dates Dr. Tacho Avila DO Primary Care Provider Active Start: August 25, 2024 End: August 25, 2024 Dr. Mindy Michaels MD Attending Provider Active Start: August 25, 2024 End: August 25, 2024 Dr. Mindy Michaels MD Referring Provider Active Start: August 25, 2024 End: August 25, 2024 Team Status: Inactive Member Role Status Dates Dr. Tacho Avila DO Primary Care Provider Active Start: August 31, 2024 End: August 31, 2024 Dr. Tacho Avila DO Referring Provider Active Start: August 31, 2024 End: August 31, 2024 Dr. Mindy Michaels MD Attending Provider Active Start: August 31, 2024 End: August 31, 2024 Team Status: Inactive Member Role Status Dates Dr. Tacho Avila DO Primary Care Provider Active Start: September 07, 2024 End: September 09, 2024 Dr. Mindy Michaels MD Admit Provider Active Start: September 07, 2024 End: September 09, 2024 Dr. Mindy Michaels MD Attending Provider Active Start: September 07, 2024 End: September 09, 2024 Dr. Mindy Michaels MD Referring Provider Active Start: September 07, 2024 End: September 09, 2024 Team Status: Active Member Role Status Dates Dr. Tacho Avila DO Primary Care Provider Active Start: September 07, 2024 Dr. Joann Tang DO Admit Provider Active Start: September 07, 2024 Dr. Joann Tang DO Referring Provider Activ e Start: September 07, 2024 Dr. Joann Tang DO Other Provider Active Start: September 07, 2024 Dr. Mindy Michaels MD Attending Provider Active Start: September 07, 2024 Team Status: Active Member Role Status Dates Dr. Tacho Avila DO Primary Care Provider Active Start: September 09, 2024 Dr. Mindy Michaels MD Admit Provider Active Start: September 09, 2024 Dr. Mindy Michaels MD Attending Provider Active Start: September 09, 2024 Dr. Mindy Michaels MD Referring Provider Active Start: September 09, 2024 Dr. Mindy Michaels MD Other Provider Active Start: September 09, 2024 Team Status: Active Member Role/Relationship Status Dates Dr. Tacho Avila DO Primary Care Provider Active Team Status: Inactive Member Role/Relationship Status Dates Dr. Tacho Avila DO Primary Care Provider Active Start: July 04, 2024 End: July 04, 2024 Dr. Tacho Avila DO Referring Provider Active Start: July 04, 2024 End: July 04, 2024 Ayana Valencia CNM Attending Provider Active S tart: July 04, 2024 End: July 04, 2024 Team Status: Inactive Member Role/Relationship Status Dates Dr. Tacho Avila DO Primary Care Provider Active Start: July 18, 2024 End: July 18, 2024 Dr. Tacho Avila DO Referring Provider Active Start: July 18, 2024 End: July 18, 2024 Dr. Mindy Michaels MD Attending Provider Active Start: July 18, 2024 End: July 18, 2024 Team Status: Inactive Member Role/Relationship Status Dates Dr. Tacho Avila DO Primary Care Provider Active Start: August 04, 2024 End: August 04, 2024 Dr. Tacho Avila DO Referring Provider Active Start: August 04, 2024 End: August 04, 2024 Rani Ridley CNM Attending Provider Active Start: August 04, 2024 End: August 04, 2024 Team Status: Inactive Member Role/Relationship Status Dates Dr. Tacho Avila DO Primary Care Provider Active Start: August 14, 2024 End: August 14, 2024 Dr. Tacho Avila DO Referring Provider Active Start: August 14, 2024 End: August 14, 2024 Dr. Joann Tang DO Attending Provider Activ e Start: August 14, 2024 End: August 14, 2024 Team Status: Inactive Member Role/Relationship Status Dates Dr. Tacho Avila DO Primary Care Provider Active Start: August 14, 2024 End: August 14, 2024 Dr. Joann Tang DO Attending Provider Activ e Start: August 14, 2024 End: August 14, 2024 Dr. Joann Tang , DO Referring Provider Activ e Start: August 14, 2024 End: August 14, 2024 Team Status: Inactive Member Role/Relationship Status Dates Dr. Tacho Avila DO Primary Care Provider Active Start: August 25, 2024 End: August 25, 2024 Dr. Tacho Avila DO Referring Provider Active Start: August 25, 2024 End: August 25, 2024 Dr. Mindy Michaels MD Attending Provider Active Start: August 25, 2024 End: August 25, 2024 Team Status: Inactive Member Role/Relationship Status Dates Dr. Tacho Avila DO Primary Care Provider Active Start: August 25, 2024 End: August 25, 2024 Dr. Mindy Michaels MD Attending Provider Active Start: August 25, 2024 End: August 25, 2024 Dr. Mindy Michaels MD Referring Provider Active Start: August 25, 2024 End: August 25, 2024 Team Status: Inactive Member Role/Relationship Status Dates Dr. Tacho Avila DO Primary Care Provider Active Start: August 31, 2024 End: August 31, 2024 Dr. Tacho Avila DO Referring Provider Active Start: August 31, 2024 End: August 31, 2024 Dr. Mindy Michaels MD Attending Provider Active Start: August 31, 2024 End: August 31, 2024 Team Status: Inactive Member Role/Relationship Status Dates Dr. Tacho Avila DO Primary Care Provider Active Start: September 07, 2024 End: September 09, 2024 Dr. Mindy Michaels MD Admit Provider Active Start: September 07, 2024 End: September 09, 2024 Dr. Mindy Michaels MD Attending Provider Active Start: September 07, 2024 End: September 09, 2024 Dr. Mindy Michaels MD Referring Provider Active Start: September 07, 2024 End: September 09, 2024 Team Status: Active Member Role/Relationship Status Dates Dr. Tacho Avila DO Primary Care Provider Active Start: September 07, 2024 Dr. Joann Tang DO Admit Provider Active Start: September 07, 2024 Dr. Joann Tang DO Referring Provider Activ e Start: September 07, 2024 Dr. Joann Tang DO Other Provider Active Start: September 07, 2024 Dr. Mindy Michaels MD Attending Provider Active Start: September 07, 2024 Team Status: Active Member Role/Relationship Status Dates Dr. Tacho Avila DO Primary Care Provider Active Start: September 09, 2024 Dr. Mindy Michaels MD Admit Provider Active Start: September 09, 2024 Dr. Mindy Michaels MD Attending Provider Active Start: September 09, 2024 Dr. Mindy Michaels MD Referring Provider Active Start: September 09, 2024 Dr. Mindy Michaels MD Other Provider Active Start: September 09, 2024 Team Status: Inactive Member Role/Relationship Status Dates Dr. Tacho Avila DO Primary Care Provider Active Start: October 26, 2024 End: October 26, 2024 Dr. Tacho Avila , Referring Provider Active Start: October 26, 2024 End: October 26, 2024 Dr. Joann Tang DO Attending Provider Activ e Start: October 26, 2024 End: October 26, 2024 Goals (unrecognized section and content) Goals may be documented in a n alternate sectionGoals may be documented in an alternate sectionGoals may be documented in an alternate sectionGoals may be documented in an alternate section FOR RECORDS PERTAINING TO PATIENTS WHO ARE OR HAVE BEEN ENROLLED IN A CHEMICAL DEPENDENCY/SUBSTANCEABUSE PROGRAM, SOME INFORMATION MAY BE OMITTED. This clinical summary was aggregated from multiple sources. Caution should be exercised in using it in the provision of clinical care. This summary normalizes information from multiple sources, and as a consequence, information in this document may materially change the coding, format and clinical context of patient data. In addition, data may be omitted in some cases. CLINICAL DECISIONS SHOULD BE BASED ON THE PRIMARY CLINICAL RECORDS. [facility]. provides no warranty or guarantee of the accuracy or completeness of information in this document.
== END | disposition home or self-care (01) ==
LOC: LABSPEC 16:29
PROVIDERS: PCP Family Medicine; Visit Provider Obstetrics & Gynecology
DX: N76.0 Acute vaginitis (principal)
CPT/HCPCS: 87070; 87205